=== PATIENT | female | born 2000 | race Caucasian/White ===

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

== ENCOUNTER 2021-10-14 16:52 | Emergency (ER) | payer MEDICAID, SELFPAY ==
[2021-10-14 16:53] VITALS: BP 118/72; PULSE 88; RESP 14; TEMP 36.6; O2SAT 97; BMI 34.1
--- NOTE | 2021-10-14 18:38 | EDS_ITS ---
HPI History of Present Illness Chief Complaint: Nausea/Vomiting Informant: patient Onset/Context/Timing Onset: Today Current Severity: Moderate Maximum Severity: Moderate Narrative Narrative: Patient presents with nausea and vomiting. She is currently 12 weeks . She states she had a lot of nausea and vomiting early in the . It recently improved but since 1 AM today has been vomiting and unable to keep anything down. She denies cramping or spotting. She is currently taking B6. She states her doctor called in a prescription for nausea medicine that would make her sleepy but she is not been able to pick it up yet. PFSH PFSH Medical History no medical history no medical history Home Medications pyridoxine (vitamin B6) [Vitamin B-6] 25 mg PO DAILY 10/14/21 [History Last Taken Unknown] Allergy/AdvReac Type Severity Reaction Status Date / Time morphine Allergy Swelling Verified 10/14/21 16:53 Social History Smoking Status: Current every day smoker tobacco type: cigarettes ROS ROS ED Constitutional Constitutional ED: Denies chills or fever(s) Eyes Eyes: Denies change in vision ENT ENT ED: Denies sore throat Cardiovascular Cardiovascular: Denies chest pain Respiratory/Chest Respiratory/Chest: Denies cough or dyspnea Gastrointestinal Gastrointestinal: Reports nausea and vomiting; Denies abdominal pain or diarrhea Genitourinary Genitourinary ED: Denies dysuria Musculoskeletal Musculoskeletal: Denies back pain Integumentary Denies rash Neurologic Neurologic: Denies headache(s) or weakness Allergic/Immunologic Allergic/Immunologic ED: Denies urticaria EXAM Physical Exam Const Vital Signs: 10/14/21 16:53 10/14/21 21:31 Temperature 97.8 F Temperature Source Temporal Pulse Rate 88 71 Respiratory Rate 14 16 Blood Pressure 118/72 115/78 Blood Pressure Mean 87 90 Pulse Ox 97 98 Oxygen Delivery Method Room Air Room Air Positive well nourished and well developed General Appearance ED: well developed HEENT Reports moist mucous membranes Eyes PERRL and EOMs intact bilaterally Neck supple Chest Wall inspection of chest normal and palpation of chest normal Resp normal respiratory effort and clear to auscultation bilaterally Cardio regular rate and regular rhythm GI non-tender Auscultation: hypoactive bowel sounds Palpation: soft Extremity normal to inspection Neuro oriented x3 Sensorium / Orientation: alert Psych mental status grossly normal Skin no rashes or lesions noted MDM MDM Lab Data Labs: Laboratory Results - last 24 hr 10/14/21 10/14/21 18:30 20:35 Sodium 140 Potassium 3.5 Chloride 109 H Carbon Dioxide 22.0 Anion Gap 9 BUN 8 Creatinine 0.54 L Estim Creat Clear Calc 148.29 Est GFR (MDRD) Af Amer 185 Est GFR (MDRD) Non-Af 153 BUN/Creatinine Ratio 15.0 Glucose 79 Calcium 9.6 Urine Color Yellow Urine Clarity Sl. Cloudy Urine pH 6.5 Ur Specific [place] 1.015 Urine Protein Negative Urine Glucose (UA) Normal Urine Ketones 150 A* Urine Occult Blood Negative Urine Nitrite Negative Urine Bilirubin Negative Urine Urobilinogen Normal Ur Leukocyte Esterase Negative Urine RBC 0 SEEN Urine WBC 0 SEEN Ur Squamous Epith Cells 0-5 SEEN Urine Bacteria 0 SEEN Urine Mucus 0 SEEN Treatment and Re-Evaluation Comments:: Patient given liter IV fluid and IV Zofran. Chemistry studies and urinalysis ordered. Chemistry studies unremarkable. Urinalysis does show 150 ketones. No sign of infection. Repeat evaluation patient feeling much improved. She is able to tolerate p.o. fluids without difficulty. Her doctor already called in antiemetics to the pharmacy for her. She will be discharged home with a work note for tomorrow. Discharge Plan Triage Chief Complaint: Nausea/Vomiting ED Provider: Emily Armstrong Dx/Rx/DC Orders Clinical Impression: Vomiting Instructions: ED Vomiting (Adult) Prescriptions: No Action pyridoxine (vitamin B6) [Vitamin B-6] 25 mg tablet 25 mg PO DAILY RF: 0 Stand Alone Forms: ED Work / School Excuse Primary Care Provider: Abena Peterson Referrals: Abena Peterson DO [Primary Care Provider] - 3-5 Days if not improving Disposition Disposition: Home, Self Care
[2021-10-14] MEDS: Ondansetron 4 MG/2 ML Vial IV (18:44)
[2021-10-14] MEDS: 0.9% Normal Saline 1,000 ML 1000 ML IV (18:45)
[2021-10-14 20:37] LABS: Anion Gap 9 (5-15); BUN 8 mg/dL (7-18); Calcium,Total 9.6 mg/dL (8.5-10.1); Chloride 109 mmol/L (98-107); Creatinine, Serum 0.54 mg/dL (0.55-1.02); EST Glomerular Filtration Rate 153 mL/min (>60); Est Glom Filt Rate - Afr Amer 185 mL/min (>60); Estimated Creatinine Clearance 148.29 ml/min; Glucose 79 mg/dL (74-106); Potassium 3.5 mmol/L (3.5-5.1); Sodium Level 140 mmol/L (136-145)
[2021-10-14 20:45] LABS: Bacteria 0 SEEN /hpf (None Seen); Mucous, Urine 0 SEEN /hpf (<or=2+); Red Blood Cells-Urine 0 SEEN /hpf (0-5); White Blood Cells 0 SEEN /hpf (0-5)
[2021-10-14 20:57] LABS: Color, Urine Yellow (Yellow); Glucose, Dipstick Normal (Normal); Leukocyte Esterase-Dipstick Negative /ul (Negative); Nitrite-Dipstick Negative (Negative); Occult Blood-Urine Negative /ul (Negative); Protein-Dipstick Negative (Negative); Specific Gravity, Urine 1.015 (1.002-1.030); Urine Bilirubin Dipstick Negative (Negative); Urine Clarity Sl. Cloudy (Clear); Urine Urobilinogen Normal (Normal); Urine pH 6.5 (5.0 - 8.0)
[2021-10-14 21:03] LABS: Ketone-Dipstick 150 mg/dl (Negative)
[2021-10-14 21:07] LABS: Squamous Epithelial Cells - UA 0-5 SEEN /hpf (5-10)
[2021-10-14 21:31] VITALS: BP 115/78; PULSE 71; RESP 16; O2SAT 98
== END 2021-10-14 22:00 | disposition home or self-care (01) ==
PROVIDERS: Emergency Provider Emergency Medicine; PCP Obstetrics & Gynecology
DX: O26.891 Other specified pregnancy related conditions, first trimester (principal); R11.2 Nausea with vomiting, unspecified; O99.331 Smoking (tobacco) complicating pregnancy, first trimester; F17.210 Nicotine dependence, cigarettes, uncomplicated; Z3A.12 12 weeks gestation of pregnancy
CPT/HCPCS: 80048; 81001; 96361; 96374; 99282; J7030; A4216; J2405

== ENCOUNTER 2021-12-09 18:00 | Emergency (ER) | payer MEDICAID, SELFPAY ==
[2021-12-09 18:01] VITALS: BP 114/75; PULSE 60; RESP 17; TEMP 36; O2SAT 97; BMI 34.0
--- NOTE | 2021-12-09 18:03 | ED.RN ---
This nurse called OB Charge nurse/OBGYN and both stated that patient can be seen in ER. ER MD notified and ok with seeing the patient in ED.
--- NOTE | 2021-12-09 18:27 | EX.ED.DYSGE1 ---
HPI <MÓNICA Fritz - Last Filed: 12/09/21 18:46> History of Present Illness Chief Complaint: Abd Pain Narrative Narrative: 21-year-old female is approximately 20 weeks . She was going to get the mail and slipped on the ice and fell on her hands and knees. There was no direct impact to her abdomen, when she stood up she developed lower abdominal cramping. No vaginal bleeding or fluids. No nausea or vomiting. She was concerned due to the cramping and presented to the ER. Her thus far has been uncomplicated. PFSH <MÓNICA Fritz - Last Filed: 12/09/21 18:46> PFSH Home Medications pyridoxine (vitamin B6) [Vitamin B-6] 25 mg PO DAILY 10/14/21 [History Last Taken Unknown] Allergy/AdvReac Type Severity Reaction Status Date / Time morphine Allergy Swelling Verified 12/09/21 18:00 Social History Smoking Status: Current every day smoker tobacco type: cigarettes ROS <MÓNICA Fritz - Last Filed: 12/09/21 18:46> ROS ED ROS Narrative Constitutional: Negative for fever, chills, malaise. Eyes: Negative for visual change. ENT: Negative for sore throat, ear pain, rhinorrhea. CVS: Negative for palpitations, chest pain, syncope. Respiratory: Negative for shortness of breath, cough, orthopnea. GI: Positive for abdominal pain. Negative for nausea, vomiting, diarrhea, constipation, melena, hematochezia. : Negative for dysuria, hematuria or frequency. Neuro: Negative for headache, motor/sensory dysfunction. Skin: Negative for rash, abscess, or wound. Musc: Negative for joint pain, swelling, trauma. Heme: Negative for easy bruising, bleeding, lymphadenopathy. EXAM <MÓNICA Fritz Last Filed: 12/09/21 18:46> Physical Exam Narrative Exam Narrative: CONST: Patient sitting in no acute distress. EYES: Normal inspection. NECK: Normal inspection. RESP: No respiratory distress, CTAB. CVS: Regular rate and rhythm, no murmur, no gallop. ABD: Soft with slight tenderness throughout, no guarding or rebound, nondistended, no hepatosplenomegaly. SKIN: Color normal, no rash, warm, dry, intact. EXTREMITIES: Normal appearance, no pedal edema. NEURO: Oriented x4. PSYCH: Normal affect. Const Vital Signs: 12/09/21 18:01 Temperature 96.8 F L Temperature Source Temporal Pulse Rate 60 Respiratory Rate 17 Blood Pressure 114/75 Blood Pressure Mean 88 Pulse Ox 97 Oxygen Delivery Method Room Air <Dr. Jose M Guillaume MD - Last Filed: 12/09/21 18:52> Physical Exam Const Vital Signs: 12/09/21 18:01 Temperature 96.8 F L Temperature Source Temporal Pulse Rate 60 Respiratory Rate 17 Blood Pressure 114/75 Blood Pressure Mean 88 Pulse Ox 97 Oxygen Delivery Method Room Air MDM <MÓNICA Fritz - Last Filed: 12/09/21 18:46> [facility] Narrative Medical decision making narrative: Patient is approximately 20 weeks . She had a mechanical slip on the ice and landed on her hands and knees. She had no direct trauma to her abdomen. She is having mild abdominal cramping pain. No vaginal bleeding or fluids. Today she appears well and nontoxic. Vital signs are within normal limits. Her abdomen is soft with slight tenderness but no peritoneal signs. With no direct trauma no bleeding I have low concern for acute intra-abdominal process. Her exam is most consistent with an abdominal wall strain. She was instructed to take Tylenol as needed and follow-up with her OB this week as she has an ultrasound scheduled in 2 days. She was discharged in stable condition. Diagnosis 1. Abdominal wall strain <Dr. Jos eM Guillaume MD - Last Filed: 12/09/21 18:52> [facility] Narrative Medical decision making narrative: Patient presents with abdominal pain. She fell onto her hands and knees. There was no direct abdominal trauma. She complains of lower abdominal pain. She denies any vaginal bleeding or vaginal discharge. This is her first . She not know her blood type. Her exam is remarkable tenderness in the lower abdomen. Having her tensing her abdominal muscles causes her discomfort. In light of this feel that her abdominal pain is due to abdominal muscle strain and not obstetric in origin. We will have nurse check for heart tones. She is to follow-up with her OB. She is scheduled for an ultrasound later this week. Discharge Plan Triage Chief Complaint: Abd Pain ED Provider: Lily Dias Dx/Rx/DC Orders Clinical Impression: Abdominal wall strain Instructions: ED Muscle Strain, Abdomen Prescriptions: No Action pyridoxine (vitamin B6) [Vitamin B-6] 25 mg tablet 25 mg PO DAILY RF: 0 Stand Alone Forms: ED Work / School Excuse Primary Care Provider: Abena Peterson Referrals: Aebna Peterson DO [Primary Care Provider] - Activity Restrictions/Additional Instructions: After examination your pain is most consistent with a strain of your abdominal wall muscles. Please take Tylenol 1000 mg as needed every 6 hours. Follow-up with your INFAN[employer]AP[employer] OFFICER as scheduled this week. Disposition Disposition: Home, Self Care
--- NOTE | 2021-12-09 18:47 | ED.RN ---
HEART TONES 148
== END 2021-12-09 18:58 | disposition home or self-care (01) ==
PROVIDERS: Emergency Provider Physician Assistant; PCP Obstetrics & Gynecology; Visit Provider Physician Assistant
DX: O9A.212 Injury, poisoning and certain other consequences of external causes complicating pregnancy, second trimester (principal); S39.011A Strain of muscle, fascia and tendon of abdomen, initial encounter; Z3A.20 20 weeks gestation of pregnancy; W00.0XXA Fall on same level due to ice and snow, initial encounter; Y93.9 Activity, unspecified; Y92.9 Unspecified place or not applicable; O99.332 Smoking (tobacco) complicating pregnancy, second trimester; F17.210 Nicotine dependence, cigarettes, uncomplicated
CPT/HCPCS: 99282

== ENCOUNTER 2022-02-27 09:33 | Emergency (ER) | payer MEDICAID, SELFPAY ==
[2022-02-27 09:34] VITALS: BP 117/70; PULSE 80; RESP 14; TEMP 36.3; O2SAT 100; BMI 35.9
--- NOTE | 2022-02-27 09:47 | EX.ED.DYSGE1 ---
HPI <BELINDA Rodríguez - Last Filed: 02/27/22 10:59> History of Present Illness Chief Complaint: GI Bleed Narrative Narrative: 21-year-old female who is 32 weeks presents the emergency department with nausea, vomiting as well as some blood in her vomit this morning. Patient has had similar morning sickness in her first trimester, states that she is having and again in her third trimester as well as acid reflux. Patient has had vomiting every morning for the last 3 mornings, today there was some red and it was enough to get her to the emergency department. She called her MEDICAL BILLING AND CODING INSTRUCTOR who told her to come the ER for evaluation. Patient denies any actual pain, patient does feel the baby move, denies any fevers or chills. Denies any blood clots or rylee red blood. PFSH <BELINDA Rodríguez - Last Filed: 02/27/22 10:59> PFSH Home Medications pyridoxine (vitamin B6) [Vitamin B-6] 25 mg PO DAILY 10/14/21 [History Last Taken Unknown] omeprazole 40 mg PO DAILY #30 cap 02/27/22 [Rx Last Taken Unknown] ondansetron 4 mg PO Q8H PRN #10 tab 02/27/22 [Rx Last Taken Unknown] Allergy/AdvReac Type Severity Reaction Status Date / Time morphine Allergy Swelling Verified 02/27/22 09:36 Social History Smoking Status: Current every day smoker tobacco type: cigarettes ROS <BELINDA Rodríguez - Last Filed: 02/27/22 10:59> ROS ED ROS Narrative Constitutional: Negative for fever, chills, weight loss, weakness Eyes: Negative for vision loss, vision change, double vision ENT: Negative for any sore throat, ear pain, congestion Cardiovascular: Negative for any chest pain, tightness, palpitations, racing heartbeat Respiratory: Negative for any cough, sputum production, hemoptysis, shortness of breath, shortness of breath on exertion, orthopnea Gastrointestinal: Negative for any abdominal pain, diarrhea, constipation, blood in stool. Positive for nausea, vomiting, blood in vomit : Negative for any urinary frequency, incontinence, dysuria, retention, blood in urine Muscle skeletal: Negative for any muscle joint pain, stiffness, myalgias, arthralgias, neck pain, back pain Neurological: Negative for any headache, dizziness, syncope, numbness or tingling Skin: Negative for any rashes, lumps, itching, abrasions, lacerations Psychiatric: Negative for any depression, anxiety, stress, suicidal ideation, homicidal ideation Hematologic: Negative for any easy bruising, excessive bruising, easy bleeding Allergies: Negative for any eczema, hives, rash EXAM <BELINDA Rodríguez - Last Filed: 02/27/22 10:59> Physical Exam Narrative Exam Narrative: Vital signs reviewed. HEET: Head normocephalic atraumatic, TMs clear bilaterally. Posterior pharynx is clear, moist mucous membranes. Nares clear bilaterally. Neck: Supple with no lymphadenopathy or tenderness. No signs of meningismus, negative jolt sign. Cardiac: Regular rate and rhythm no murmurs gallops or rubs, equal peripheral pulses bilaterally. Respiratory: Lungs clear to auscultation bilaterally. No chest tenderness. Abdomen: Soft, nontender, nondistended. No abdominal bruit or pulsatile masses. No hepatosplenomegaly. Patient is 32 weeks , heart tones were established, they were within normal limits. Patient denies any pelvic pain, abdominal pain. Extremities: No peripheral edema, no signs of gross trauma or deformity. Active full range of motion of all extremities. Neuro: Cranial nerves II through XII intact, no focal neurological deficits. Skin: Clean dry and intact with no rash, purpura, petechiae, vesicles or pustules. Backslash flank: No CVA tenderness, no midline spinal tenderness, no deformity. Psych: Normal mood and affect. No SI, HI or acute psychosis. Const Vital Signs: 02/27/22 09:34 Temperature 97.3 F L Temperature Source Temporal Pulse Rate 80 Respiratory Rate 14 Blood Pressure 117/70 Blood Pressure Mean 85 Pulse Ox 100 Oxygen Delivery Method Room Air <Dr. Rolf Harrison MD - Last Filed: 02/27/22 12:06> Physical Exam Const Vital Signs: 02/27/22 09:34 Temperature 97.3 F L Temperature Source Temporal Pulse Rate 80 Respiratory Rate 14 Blood Pressure 117/70 Blood Pressure Mean 85 Pulse Ox 100 Oxygen Delivery Method Room Air MDM <BELINDA Rodríguez - Last Filed: 02/27/22 10:59> [facility] Narrative Medical decision making narrative: Patient appears well, patient appears nontoxic, vital signs are stable. Patient presents the emergency department with 3 days of vomiting, some blood in her vomit today. Patient's physical examination was unremarkable, I believe the patient's retching, consistent vomiting over the last couple days as well as acid reflux caused possible Adina-Johnson tear. The patient had no vomitus here, patient felt much better after IV fluids, IV Zofran. Patient will be given Mylanta, patient be discharged with Zofran, a PPI. She will follow-up closely with her MEDICAL BILLING AND CODING INSTRUCTOR. At this time, patient given return precautions however patient is stable for discharge. heart tones were completed, they were 168 which is within normal limits. Lab Data Labs: Laboratory Results - last 24 hr 02/27/22 02/27/22 09:58 09:58 WBC 10.8 RBC 4.08 L Hgb 11.3 L Hct 34.3 L MCV 84.1 MCH 27.7 MCHC 32.9 RDW Std Deviation 38.2 RDW Coeff of Pratima 12.7 Plt Count 180 MPV 10.7 Immature Gran % (Auto) 0.600 Neut % (Auto) 76.0 H Lymph % (Auto) 15.5 L [place] % (Auto) 6.1 Eos % (Auto) 1.4 Baso % (Auto) 0.4 Absolute Neuts (auto) 8.2 H Absolute Lymphs (auto) 1.67 Nucleated RBC % 0 Sodium 138 Potassium 3.9 Chloride 109 H Carbon Dioxide 24.0 Anion Gap 5 BUN 6 L Creatinine 0.52 L Estim Creat Clear Calc 153.99 Est GFR (MDRD) Af Amer 190 Est GFR (MDRD) Non-Af 157 BUN/Creatinine Ratio 11.6 Glucose 92 Calcium 8.6 <Dr. Rolf Harrison MD - Last Filed: 02/27/22 12:06> [facility] Narrative Medical decision making narrative: Seen and evaluated independently and in conjunction with physician assistant professor of life sciences. Agree with notes above unless documented otherwise. Patient has been vomiting quite hard when she does so, off and on throughout her . She now saw a small mount of blood. She has some burning discomfort in her chest that is better after Mylanta we gave her. Hemodynamically stable and clinically stable, not continuing to vomit blood and has had no melena or bright red blood per rectum. Exam: Benign abdomen nontender nondistended, no tachycardia. Reviewed her labs her blood counts are okay for a female, vital signs are normal, do not suspect clinically significant GI bleeding here, more than likely a Adina-Johnson tear which we discussed, place her on a PPI, prn nausea medication, and close a patient follow-up. We discussed reasons to return. Lab Data Attestation: I reviewed the patient's lab results. Labs: Laboratory Results - last 24 hr 02/27/22 02/27/22 09:58 09:58 WBC 10.8 RBC 4.08 L Hgb 11.3 L Hct 34.3 L MCV 84.1 MCH 27.7 MCHC 32.9 RDW Std Deviation 38.2 RDW Coeff of Pratima 12.7 Plt Count 180 MPV 10.7 Immature Gran % (Auto) 0.600 Neut % (Auto) 76.0 H Lymph % (Auto) 15.5 L Dickinson % (Auto) 6.1 Eos % (Auto) 1.4 Baso % (Auto) 0.4 Absolute Neuts (auto) 8.2 H Absolute Lymphs (auto) 1.67 Nucleated RBC % 0 Sodium 138 Potassium 3.9 Chloride 109 H Carbon Dioxide 24.0 Anion Gap 5 BUN 6 L Creatinine 0.52 L Estim Creat Clear Calc 153.99 Est GFR (MDRD) Af Amer 190 Est GFR (MDRD) Non-Af 157 BUN/Creatinine Ratio 11.6 Glucose 92 Calcium 8.6 Discharge Plan Triage Chief Complaint: GI Bleed ED Midlevel Provider: David Burns ED Provider: Rolf Harrison Dx/Rx/DC Orders Clinical Impression: Nausea and vomiting during , Adina-Johnson tear Instructions: Adina-Johnson Tear, ED Vomiting (Adult) Prescriptions: New ondansetron 4 mg tablet,disintegrating 4 mg PO Q8H PRN (Reason: nausea and vomiting) Qty: 10 RF: 0 omeprazole 40 mg capsule,delayed release(DR/EC) 40 mg PO DAILY Qty: 30 RF: 0 No Action pyridoxine (vitamin B6) [Vitamin B-6] 25 mg tablet 25 mg PO DAILY RF: 0 Stand Alone Forms: ED Work / School Excuse Primary Care Provider: Abena Peterson Referrals: Abena Peterson, [Primary Care Provider] - Activity Restrictions/Additional Instructions: Please follow-up with your PCP and your MEDICAL BILLING AND CODING INSTRUCTOR. Use Zofran for nausea, use your omeprazole daily this will help the acid reflux Print Language: Persian Disposition Disposition: Home, Self Care Discharge Date/Time: 02/27/22 11:26
[2022-02-27] MEDS: 0.9% Normal Saline 1,000 ML 1000 ML IV (10:04)
[2022-02-27] MEDS: Ondansetron 4 MG/2 ML Vial IV (10:05)
[2022-02-27 10:10] LABS: Absolute Lymphocyte Count 1.67 X10^3/uL (0.83-4.51); Absolute Neutrophil Count 8.2 X10^3/uL (2.0-7.7); Basophil# 0.04 X10^3/uL; Basophil% 0.4 % (0-1); Eosinophil# 0.15 X10^3/uL; Eosinophils% 1.4 % (0-5); Hematocrit 34.3 % (37-47); Hemoglobin 11.3 g/dL (12.0-15.0); Lymphocyte # 1.67 X10^3/ul (0.83-4.51); Lymphocyte % 15.5 % (19-41); Mean Corp Hgb Conc 32.9 g/dL (32-36); Mean Corpuscular Hgb 27.7 pg (27.0-32.0); Mean Corpuscular Volume 84.1 fL (81-99); Mean Platelet Vol. 10.7 fl (6.2-12.0); Monocyte# 0.66 X10^3/uL; Monocyte% 6.1 % (0-10); NRBC Flagged by Analyzer 0 % (0-5); Platelet Count 180 K/mm3 (150-450); RBC Distribution Width CV 12.7 % (11.6-14.6); RBC Distribution Width SD 38.2 fl (35.1-43.9); Red Blood Count 4.08 M/mm3 (4.2-5.4); White Blood Count 10.8 K/mm3 (4.4-11.0)
[2022-02-27 10:23] LABS: Anion Gap 5 (5-15); BUN 6 mg/dL (7-18); BUN/Creat Ratio 11.6 RATIO (10-20); Calcium,Total 8.6 mg/dL (8.5-10.1); Chloride 109 mmol/L (98-107); Creatinine, Serum 0.52 mg/dL (0.55-1.02); EST Glomerular Filtration Rate 157 mL/min (>60); Est Glom Filt Rate - Afr Amer 190 mL/min (>60); Estimated Creatinine Clearance 153.99 ml/min; Glucose 92 mg/dL (74-106); Potassium 3.9 mmol/L (3.5-5.1); Sodium Level 138 mmol/L (136-145)
[2022-02-27] MEDS: Mag Hydrox/Al Hydrox/Simeth 30 ML UDC PO (11:15)
== END 2022-02-27 11:26 | disposition home or self-care (01) ==
PROVIDERS: Nurse Practitioner; Emergency Provider Emergency Medicine; PCP Obstetrics & Gynecology; Visit Provider Emergency Medicine
DX: O99.613 Diseases of the digestive system complicating pregnancy, third trimester (principal); K22.6 Gastro-esophageal laceration-hemorrhage syndrome; Z3A.32 32 weeks gestation of pregnancy; O99.333 Smoking (tobacco) complicating pregnancy, third trimester; F17.210 Nicotine dependence, cigarettes, uncomplicated; K21.9 Gastro-esophageal reflux disease without esophagitis
CPT/HCPCS: 80048; 85025; 96361; 96374; 99284; J7030; J2405

== ENCOUNTER 2022-04-24 05:00 | Inpatient (IN) | payer MEDICAID, SELFPAY ==
[2022-04-24] VITALS (17 sets, daily range): BP systolic 101–134; BP diastolic 55–79; PULSE 65–92; RESP 12–22; TEMP 36.2–36.8; O2SAT 96–99; BMI 38.9
[2022-04-24] MEDS: Lactated Ringers 1,000 ML 999 ML IV (05:32)
[2022-04-24 05:45] LABS: Absolute Lymphocyte Count 2.04 X10^3/uL (0.83-4.51); Absolute Neutrophil Count 9.9 X10^3/uL (2.0-7.7); Basophil# 0.03 X10^3/uL; Basophil% 0.2 % (0-1); Eosinophil# 0.07 X10^3/uL; Eosinophils% 0.5 % (0-5); Hematocrit 33.8 % (37-47); Hemoglobin 10.8 g/dL (12.0-15.0); Lymphocyte # 2.04 X10^3/ul (0.83-4.51); Lymphocyte % 15.9 % (19-41); Mean Corpuscular Hgb 25.5 pg (27.0-32.0); Mean Corpuscular Volume 79.9 fL (81-99); Mean Platelet Vol. 12.1 fl (6.2-12.0); Monocyte# 0.78 X10^3/uL; Monocyte% 6.1 % (0-10); NRBC Flagged by Analyzer 0 % (0-5); Neutrophil # 9.87 X10^3/uL (2.7-7.7); Neutrophil % 76.7 % (47-70); Platelet Count 196 K/mm3 (150-450); RBC Distribution Width CV 13.5 % (11.6-14.6); RBC Distribution Width SD 38.4 fl (35.1-43.9); Red Blood Count 4.23 M/mm3 (4.2-5.4); White Blood Count 12.9 K/mm3 (4.4-11.0)
[2022-04-24] MEDS: Lactated Ringers 1,000 ML 150 ML IV (06:38)
[2022-04-24] MEDS: Acetaminophen 500 MG Tablet 1000 MG PO ×4 (06:39→23:52)
[2022-04-24 07:00] LABS: Amphetamine Urine VISTA NEGATIVE (<1000 ng/mL); Barbiturate Urine VISTA NEGATIVE (< 200 ng/mL); Benzodiazepine Urine VISTA NEGATIVE (< 200 ng/mL); Cocaine Urine VISTA NEGATIVE (< 300 ng/mL); Ecstacy Urine VISTA NEGATIVE (< 500 ng/mL); Methadone Urine VISTA NEGATIVE (< 300 ng/mL); PCP Urine VISTA NEGATIVE (< 25 ng/mL); THC Urine VISTA POSITIVE (< 50 ng/mL); Vista UDS pH Range 5
[2022-04-24] MEDS: Sodium Citrate/Citric Acid 30 ML UDC PO (07:22)
--- NOTE | 2022-04-24 07:31 | HP.PCM_ITS ---
HPI - General General Date of Admission: 04/24/22 Date of Service: 04/24/22 Chief Complaint: section HPI Narrative LUIS EDUARDO COATS, is a 21 F who presents for scheduled section. DATE OF SERVICE: April 17, 2022 ? PROBLEM: breech presentation, 39 week gestation, single IUP, club foot of fetus, obesity ? DIAGNOSIS: As above ? PAST SURGICAL HISTORY: PAST SURGICAL HISTORYExpand by Default PAST SURGICAL HISTORY Procedure Laterality Date ? PAST SURGICAL HISTORY OF ? 2003 ? Left eye surgery following dog bite-Dr. Stevie Henson [facility] ? TONSILLECTOMY & ADENOIDECTOMY <AGE 12 ? 2003 ? Dr. Castro ? ? PAST MEDICAL HISTORY: PAST MEDICAL HISTORYExpand by Default PAST MEDICAL HISTORY Diagnosis Date ? Depression ? ? NEGATIVE HISTORY OF 08/06/2011 ? Color Blindness ? Obese 03/09/2015 ? ? SUBJECTIVE: Pt doing well. No regular ctx, vb, lof. Good FM. ? SOCIAL HISTORY: SOCIAL HISTORYExpand by Default Social History ? Tobacco Use ? Smoking status: Former Smoker ? ? Years: 5.00 ? ? Types: Cigarettes ? ? Quit date: 01/07/2021 ? ? Years since quittin.2 ? Smokeless tobacco: Never Used Vaping Use ? Vaping Use: Former ? Quit date: 08/27/2021 ? Substances: Nicotine, THC, CBD Substance Use Topics ? Alcohol use: Never ? Drug use: Never ? ? Current Outpatient Medications on File Prior to Visit Medication Sig ? omeprazole (PRILOSEC) 40 mg capsule Take 1 capsule by mouth once daily. ? multivitamin (CLASSIC ) 28 mg iron- 800 mcg tab(s) Take 1 tablet by mouth once daily. ? No current facility-administered medications on file prior to visit. ? ALLERGIESExpand by Default ALLERGIES Allergen Reactions ? Morphine Swelling ? ? OBJECTIVE: ? VITALS: BP 100/66 Wt 235 lb 6.4 oz (106.8 kg) LMP 07/22/2021 (Exact Date) BMI 37.43 kg/m? ? HEENT: Normocephalic, atraumatic, Mucus membranes moist without lesions. ? NECK: Soft and Supple. No adenopathy , thyromegaly or bruits. ? SKIN: No lesions. ? CHEST: Clear to auscultation. No wheezes or rales. Good air exchange. ? HEART: Regular rate and rhythm No S3 or S4. No gallops or rubs. ? BACK: Nontender with no CVA tenderness. ? ABDOMEN: Soft, non-tender, non-distended, no masses, no hepatosplenomegaly. ? LOWER EXTREMITIES: There was no pitting edema, no palpable cords and no skin changes. ? ? ? ASSESSMENT: breech presentation, 39 week gestation, single IUP, club foot of fetus, obesity ? PLAN: 1) Discussed r/b/a to section. The rationale for the proposed surgery was discussed in addition to risks, benefits, and alternatives. General pre- and post-operative care was reviewed. Questions were answered. After discussion, the patient indicated a desire to proceed with the planned surgery. [facility] Medical History (Updated 04/24/22 @ 07:[address] Abena Peterson DO) Depression Migraine Home Medications omeprazole 40 mg capsule,delayed release 40 mg PO DAILY heartburn 04/24/22 [History Last Taken 04/22/22 21:00] Allergy/AdvReac Type Severity Reaction Status Date / Time morphine Allergy Swelling Verified 04/24/22 05:29 Surgical History History of surgery History of tonsillectomy and adenoidectomy Social History Smoking Status: Former smoker Vital Signs Vital Signs Vital Signs: 04/24/22 05:23 04/24/22 05:23 04/24/22 05:35 Temperature 97.9 F Temperature Source Temporal Pulse Rate 88 90 Respiratory Rate 16 Blood Pressure 122/79 H Blood Pressure Mean 93 Blood Pressure Source Monitor Blood Pressure Position Semi-Fowlers Blood Pressure Location Right Arm Pulse Ox 99 99 Oxygen Delivery Method Room Air Weight Weight: 233 lb 12.8 oz Body Mass Index (BMI) 38.9 Results Lab / Micro Data Result Diagrams: 04/24/22 05:30 Labs: Laboratory Results - last 24 hr 04/24/22 05:30: WBC 12.9 H, RBC 4.23, Hgb 10.8 L, Hct 33.8 L, MCV 79.9 L, MCH 25.5 L, MCHC 32.0, RDW Std Deviation 38.4, RDW Coeff of Pratima 13.5, Plt Count 196, MPV 12.1 H, Immature Gran % (Auto) 0.600, Neut % (Auto) 76.7 H, Lymph % (Auto) 15.9 L, [place] % (Auto) 6.1, Eos % (Auto) 0.5, Baso % (Auto) 0.2, Absolute Neuts (auto) 9.9 H, Absolute Lymphs (auto) 2.04, Nucleated RBC % 0 04/24/22 05:30: Blood Type A POSITIVE, Antibody Screen NEGATIVE 04/24/22 06:10: Urine Opiates Screen NEGATIVE, Urine Methadone Screen NEGATIVE, Ur Barbiturates Screen NEGATIVE, Ur Phencyclidine Scrn NEGATIVE, Ur Amphetamines Screen NEGATIVE, MDMA (Ecstasy) Screen NEGATIVE, U Benzodiazepines Scrn NEGATIVE, Urine Cocaine Screen NEGATIVE, U Cannabinoids Screen POSITIVE H, Ur Drug Screen Comment Micro: Microbiology 04/24/22 05:30 Nasal Secretion SARS-CoV-2 Antigen (Rapid) - Final Assessment & Plan Assessment/Plan (1) 39 weeks gestation of : (2) Breech presentation:
[2022-04-24] MEDS: Cefazolin 2 GM in 0.9% Normal Saline 100 ML IV (07:34)
--- NOTE | 2022-04-24 08:38 | OP.PCM_ITS ---
Report of Operation Date of Procedure: 04/24/22 Pre-Operative Diagnosis: 39 week gestation, single IUP, breech presentation, ob esity in Post-Operative Diagnosis: As above Surgery/Procedure Performed:: PLTCS via pfannenstiel incision Description of Surgical Findings:: VMI incomplete breech presentation. Clear fluid. Normal appearing placenta with 3 VC. Normal appearing uterus and bilateral adnexa. Surgeon: Abena Peterson fraternity house cook: Maru Miles Type of Anesthesia: Epidural Special Medications: None Specimen's removed: Placenta Drains: Dobbs Estimated Blood Loss (mL): 800 Fluids Replaced: 1500 Description of Procedure: Patient was taken to the operating room where spinal anesthesia was found to be adequate. She was prepped and draped in the dorsal position with a leftward tilt. A Pfannenstiel skin incision was made with a scalpel and this was carried down to the underlying layer of fascia. The fascia was incised the midline. The fascia was extended laterally using a combination of blunt and sharp dissection. The fascia was dissected off of the rectus muscles with blunt and sharp dissection. The rectus muscles were in the midline. The peritoneum was entered with good visualization of the bladder. The peritoneal incision was extended bluntly. The bladder blade was inserted. A low transverse incision was made on the uterus with the scalpel. The incision on the uterus was extended laterally using scissors. Membranes were ruptured for clear fluid. The buttocks of the infant was brought to the hysterotomy. The buttocks was delivered followed by the body and the legs, followed by the arms and the head without any force or delay. The head was in the flexed position during delivery. A vigorous viable male infant was delivered easily without delay through the uterine incision. The cord was clamped and cut after a delay, and the was handed off to the awaiting nursery staff. The placenta was removed with manual extraction. The uterus was exteriorized. The uterus was cleared of all clot and debris. The uterine incision was closed with 1-0 Vicryl in a running locked fashion. A second imbricating layer was performed using 1-0 Vicryl. Uterus was placed back into the abdomen. The hysterotomy was noted to be hemostatic. The peritoneum was closed with 3-0 Vicryl in a running fashion. The fascia was closed with strata fix in a running fashion. The subcutaneous space was irrigated and made hemostatic with Bovie cautery. The subcutaneous space was reapproximated with 3-0 Vicryl. The skin was closed in a subcuticular fashion using 4-0 Monocryl. A silver dressing was placed over the incision. Instrument, sponge, needle counts were correct. The patient was taken to the recovery room in stable condition. Polls Or Surveys Interviewer Dr. Maru Miles was present for: Delivery of the infant and closure of fascia. Grafts/Implants Used: None Procedure Start Time: 07:52 Procedure Stop Time: 08:30 Complications None Admit VTE Documentation VTE Present on Admission: No VTE Mechan Device Prophylaxis: SCD's
[2022-04-24] MEDS: Oxytocin 30 units/NS 500 ml 30 UNITS/500 ML IV.SOLN 167 UNITS IV (08:47)
[2022-04-24] MEDS: Ketorolac 30 MG/ML Syringe IV ×3 (09:42→20:56)
[2022-04-24] MEDS: Senna/Docusate Sodium 1 Tablet PO (10:24)
--- NOTE | 2022-04-24 11:38 | NURSING ---
report given to Mercy Pardo RN who is assuming care of pt at this time
[2022-04-24] MEDS: Lactated Ringers 1,000 ML 100 ML IV (11:48)
[2022-04-24] MEDS: HYDROmorphone 1 MG/ML Syringe IV (13:03)
[2022-04-24] MEDS: oxyCODONE 5 MG Tablet PO (19:57)
[2022-04-25] MEDS: Ketorolac 30 MG/ML Syringe IV (03:09)
[2022-04-25 03:10] VITALS: BP 124/71; PULSE 86; RESP 16; TEMP 36.3; O2SAT 97
[2022-04-25 05:47] LABS: Hematocrit 28.5 % (37-47); Hemoglobin 9.1 g/dL (12.0-15.0); Mean Corp Hgb Conc 31.9 g/dL (32-36); Mean Corpuscular Hgb 25.5 pg (27.0-32.0); Mean Corpuscular Volume 79.8 fL (81-99); Mean Platelet Vol. 12.2 fl (6.2-12.0); Platelet Count 159 K/mm3 (150-450); RBC Distribution Width CV 13.7 % (11.6-14.6); RBC Distribution Width SD 39.6 fl (35.1-43.9); Red Blood Count 3.57 M/mm3 (4.2-5.4); White Blood Count 13.1 K/mm3 (4.4-11.0)
[2022-04-25] MEDS: Acetaminophen 500 MG Tablet 1000 MG PO ×3 (06:00→18:39)
[2022-04-25] MEDS: oxyCODONE 5 MG Tablet PO (06:00)
--- NOTE | 2022-04-25 08:34 | PCM.PROGNOTE ---
Subjective Subjective patient seen at bedside, doing well. Patient reports good pain control. lochia mild. Objective Data Objective Data Vital Signs: Vital Signs Temp Pulse Resp BP Pulse Ox O2 Del Method 97.3 F L 86 16 124/71 H 97 Room Air 04/25/22 03:10 04/25/22 03:10 04/25/22 03:10 04/25/22 03:10 04/25/22 03:10 04/25/22 03:10 Oxygen Delivery Method Room Air Weight: 106.05 kg Body Mass Index (BMI) 38.9 Intake & Output: Intake and Output for Last 24 Hours 04/23/22 04/24/22 04/25/22 23:59 23:59 23:59 Intake Total 3940.83 / 3940.83 Output Total 2780 / 3580 800 / 800 Balance 1160.83 / 360.83 -800 / -800 Lab / Micro Data Result Diagrams: 04/25/22 05:34 Labs: Laboratory Results - last 24 hr 04/25/22 05:34: WBC 13.1 H, RBC 3.57 L, Hgb 9.1 L, Hct 28.5 L, MCV 79.8 L, MCH 25.5 L, MCHC 31.9 L, RDW Std Deviation 39.6, RDW Coeff of Pratima 13.7, Plt Count 159, MPV 12.2 H Micro: Microbiology 04/24/22 05:30 Nasal Secretion SARS-CoV-2 Antigen (Rapid) - Final Physical Exam Narrative fundus firm. dressing dry and intact Const alert and oriented x3 General Appearance: cooperative HEENT normocephalic Neck General: normal visual inspection GI soft to palpation and non-distended GI Narrative: Fundus firm Extremity normal to inspection and no calf tenderness Skin no rashes or lesions noted Neuro oriented x3 and CN's II-XII intact bilaterally Psych mental status grossly normal Assessment & Plan Assessment/Plan (1) Delivery by section: PLAN: POD# 1 , Doing well Routine care pain mgmt monitor VS ambulation
[2022-04-25 08:54] VITALS: BP 132/76; PULSE 87; RESP 16; TEMP 36.6
[2022-04-25] MEDS: Senna/Docusate Sodium 1 Tablet PO (09:27)
[2022-04-25] MEDS: Ibuprofen 600 MG Tablet PO ×3 (09:27→21:22)
[2022-04-25 13:45] VITALS: BP 128/72; PULSE 89; RESP 16; TEMP 36.6
[2022-04-25 19:45] VITALS: BP 117/47; PULSE 86; RESP 16; TEMP 36.6; O2SAT 100
--- NOTE | 2022-04-25 21:42 | NURSING ---
pt expressed concern related to . pt states she feels overwhelmed and stressed and feels as infant is stressed about as well. pt states she is wanting to formula feed until her milk comes in. RN explained importance of pumping to stimulate milk production. pts pump set up and reviewed with pt; pt verbalized understanding. pt stated she wants to eat prior to pumping. pt encouraged to call RN for assistance with first pumping session. pt agreeable
[2022-04-26] MEDS: Acetaminophen 500 MG Tablet 1000 MG PO ×3 (00:49→11:55)
[2022-04-26 00:51] VITALS: BP 129/61; PULSE 89; RESP 16; TEMP 36.4; O2SAT 99
[2022-04-26] MEDS: oxyCODONE 5 MG Tablet PO (01:51)
[2022-04-26] MEDS: Ibuprofen 600 MG Tablet PO ×2 (03:14→09:49)
--- NOTE | 2022-04-26 06:27 | NURSING ---
maternal and support person infant ID bands fell off pt and fob. replaced, verified with Blanche ALMANZA
--- NOTE | 2022-04-26 07:16 | PCM.PROGNOTE ---
Subjective Subjective patient seen at bedside, doing well. Patient reports good pain control. lochia mild. dressing dry and intact. passing flatus +BM, voiding w/o difficulty. ambulating w/o difficulty. Objective Data Objective Data Vital Signs: Vital Signs Temp Pulse Resp BP Pulse Ox O2 Del Method 97.5 F L 89 16 129/61 H 99 Room Air 04/26/22 00:51 04/26/22 00:51 04/26/22 00:51 04/26/22 00:51 04/26/22 00:51 04/26/22 00:51 Oxygen Delivery Method Room Air Weight: 106.05 kg Body Mass Index (BMI) 38.9 Intake & Output: Intake and Output for Last 24 Hours 04/24/22 04/25/22 04/26/22 23:59 23:59 23:59 Intake Total 3940.83 / 3940.83 Output Total 2780 / 3580 800 / 800 Balance 1160.83 / 360.83 -800 / -800 Lab / Micro Data Result Diagrams: 04/25/22 05:34 Micro: Microbiology 04/24/22 05:30 Nasal Secretion SARS-CoV-2 Antigen (Rapid) - Final Physical Exam Const alert and oriented x3 General Appearance: cooperative HEENT normocephalic Neck General: normal visual inspection GI soft to palpation and non-distended GI Narrative: Fundus firm Extremity normal to inspection and no calf tenderness Skin no rashes or lesions noted Neuro oriented x3 and CN's II-XII intact bilaterally Psych mental status grossly normal Assessment & Plan Assessment/Plan (1) Delivery by section: PLAN: Plan POD# 2 , Doing well Routine care pain mgmt monitor VS ambulation dc home
--- NOTE | 2022-04-26 07:18 | DCINST_ITS ---
Discharge Instructions Procedure Diet Discharge Diet: No restrictions Activity May resume sexual activity in: 6-8 weeks Lifting Restrictions: 25 Dressing / Incision Call your doctor if your incision/area has: Continuous Slow Oozing, Sudden Increased Bleeding, Increased Pain/ Swelling, Increased Redness, Foul Smelling Discharge and Swelling at the incision site Call your doctor if you observe: Fever of 101 or Higher, Inability to urinate, Using more than 1 pad per hour and Uncontrolled pain Additional Dressing/Incision Instructions:: remove dressing at 7 days post op- if it becomes saturated prior to that time you may remove it. Let soap and water run over incision sites and dab dry. keep incision clean and dry. Follow Up Care Please Follow Up With: Mariela Del Valle MD When: 1-2 weeks post of incision check and again at 6 weeks post . [phone] Test Results: Test results from this visit will be discussed in further detail at your follow- up appointment, if applicable. Discharge Plan Admission Admit Date/Time: 04/24/22 05:00 Attending Provider: Abena Peterson Discharge Orders/Prescriptions Prescriptions: New acetaminophen 500 mg Tablet 1,000 mg PO Q6 Qty: 0 0RF ibuprofen 600 mg Tablet 600 mg PO Q6H Qty: 0 0RF oxycodone 5 mg Tablet 5 - 10 mg PO Q4H PRN PRN (Reason: Pain Score 4-10) 5 Days Qty: 10 0RF sennosides-docusate sodium [Stool Softener-Stimulant Laxat] 8.6-50 mg Tablet 1 - 2 tab PO DAILY Qty: 0 0RF simethicone [Gas Relief (simethicone)] 80 mg Tablet,Chewable 80 mg PO PCHS PRN (Reason: Indigestion/stomach pain) Qty: 0 0RF Continued omeprazole 40 mg capsule,delayed release(DR/EC) 40 mg PO DAILY Disposition Disposition (needs filled in before D/C Order can be placed): Home, Self Care
--- NOTE | 2022-04-26 07:21 | DS.PCM_ITS ---
Discharge Summary Date of Admission: 04/24/22 Date of Discharge: 04/26/22 Summary: Patient was admitted to [facility] for a primary low-transverse section performed by Dr. Abena Peterson due to breech presentation at 39 weeks gestation. Patient had an uncomplicated surgery followed by an uncomplicated postoperative course. She was discharged home on postoperative day 2 in stable condition Meaningful Use Info Meaningful Use Diagnoses (Choose all that apply): None applicable Discharge Plan Admission Admit Date/Time: 04/24/22 05:00 Attending Provider: Abena Peterson Discharge Orders/Prescriptions Prescriptions: New acetaminophen 500 mg Tablet 1,000 mg PO Q6 Qty: 0 0RF ibuprofen 600 mg Tablet 600 mg PO Q6H Qty: 0 0RF oxycodone 5 mg Tablet 5 - 10 mg PO Q4H PRN PRN (Reason: Pain Score 4-10) 5 Days Qty: 10 0RF sennosides-docusate sodium [Stool Softener-Stimulant Laxat] 8.6-50 mg Tablet 1 - 2 tab PO DAILY Qty: 0 0RF simethicone [Gas Relief (simethicone)] 80 mg Tablet,Chewable 80 mg PO PCHS PRN (Reason: Indigestion/stomach pain) Qty: 0 0RF Continued omeprazole 40 mg capsule,delayed release(DR/EC) 40 mg PO DAILY Disposition Disposition (needs filled in before D/C Order can be placed): Home, Self Care
[2022-04-26 07:45] VITALS: BP 123/75; PULSE 85; RESP 16; TEMP 36.7; O2SAT 99
[2022-04-26] MEDS: Senna/Docusate Sodium 1 Tablet PO (09:49)
--- NOTE | 2022-04-26 10:56 | NURSING ---
2 week follow up appointment scheduled with [facility].
--- NOTE | 2022-04-26 11:26 | NURSING ---
Okay for discharge per social work.
[2022-04-26 11:40] VITALS: BP 132/82; PULSE 85; RESP 18; TEMP 36.4; O2SAT 99
--- NOTE | 2022-04-26 18:17 | CASEMGMT ---
Addendum entered by Zoraida Leonard 04/26/22 19:54: TOMMY made on line referral to [facility] and WIC. 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 History of depression. SW spoke to ARCHIE Knox who reports she has no concerns with the patient and that fob and mother are good supports. SW met with patient and introduced role and reason for consult. Patient gave verbal consent for this parts data writer to speak to her in the presence of her mother and the FOB. Mom: Shy Mullen PNC: [facility] Control: BC pill PHQ2 score-0 Baby: Guillermo Wayne : 04/24/2022 Apgars: 8/9 Weight: 6# 13 ounces Wedding Transportation Driver: Dr. Fields [employer] MOB's other children: None Housing: Patient resides in a house with her mom, dad, sister and FOB Transportation: Patient said that she does not drive but Gera and patient's mother will transport her to appointments, and they confirmed this with this parts data writer. Supplies: Patient reports she has clothes, diapers, bassinet, crib, diapers and carseat and all the supplies for the nb Supports: Patient said that her supports are her boyfriend, Gera and her mother Education Level: Patient said that she did not graduate from high school. The last grade she attended was the 12th grade. Patient had an IEP for ADHD.. Employment: Patient is not currently employed. Patient worked till 2 weeks ago at [employer] in [facility]. Patient said that after her post period she plans to work at [employer]. Patient is unsure when she will return to work Agency Involvement: [employer] . Patient was open to [facility] and WIC referral. Patient reports she had counseling as a teenager through the school counselor. Patient reports no legal issues. Patient reports no CPS involvement in the past. FOB: Moisés Wayne Time together: 1 1/2 years Involved with the nb: Yes Employment: [employer] in [place]. FOB plans to take off till next Thursday or I can stay longer if I am needed. FOB reports no other children. FOB MH/AOD/DV history: Denied Patient MH History: Patient said that she was diagnosed with depression but also had been diagnosed with depression in high school. Patient said that she took Zoloft in high school and it was effective. Patient is not currently on medication. Patient denied SI/HI currently. Patient was educated on post depression, shaken baby and safe sleeping. Patient's mother said that the reason patient is bottle feeding is that she knows that patient needs sleep and if patient bottle feeds then all the other family members can assist with feeding so the patient can get rest. Patient's mother said that she has talked to patient about post depression and self care. Patient denied alcohol use. Patient reports smoking marijuana as most recently as 1 month ago. Patient said that she used the marijuana to assist with morning sickness, eating and sleep. Patient denied any other drug use. Patient said that she is unsure if she will plan to resume the marijuana use. SW advised patient that if she uses that the nb needs to be inside with sober and responsible adult and patient verbalized understanding. SW advised that if the nb's tox indicated positive for marijuana then CSB will be called. Patient verbalized understanding. SW provided Post Anxiety and Post Depression resource for patient. Plan: Home at discharge. Referral to WIC and [facility] on line per patient's request. Zoraida MONCADA
== END 2022-04-26 12:00 | disposition home or self-care (01) | DRG 540 ==
PROVIDERS: Admitting Provider Obstetrics & Gynecology; Visit Provider Obstetrics & Gynecology
PROC: 10D00Z1 Extraction of Products of Conception, Low, Open Approach (ICD-10-PCS; CPT 59514; principal; 2022-04-24 07:15)
DX: O32.1XX0 Maternal care for breech presentation, not applicable or unspecified (principal); E66.9 Obesity, unspecified; Z37.0 Single live birth; Z3A.39 39 weeks gestation of pregnancy; O99.213 Obesity complicating pregnancy, third trimester; Z87.891 Personal history of nicotine dependence
CPT/HCPCS: 59050; 80307; 85025; 85027; 86850; 86900; 86901; 87426; 99218; 99406; J7120; G0378; J2405

== ENCOUNTER 2023-04-14 11:36 | Emergency (ER) | payer MEDICAID, SELFPAY ==
[2023-04-14 11:37] VITALS: BP 121/58; PULSE 85; RESP 14; TEMP 36.3; O2SAT 98; BMI 39.7
--- NOTE | 2023-04-14 12:11 | US_ITS ---
STUDY: FIRST TRIMESTER OBSTETRICAL ULTRASOUND REASON FOR EXAM: Female, 22 years old pelvic pain -- 5wks 4 days by dates LMP: 03/03/2023 TECHNIQUE: Transvaginal TECHNICAL QUALITY: Adequate. PRIOR ULTRASOUND: None. FINDINGS: There is visualization of a single gestational sac in a normal intrauterine position. The mean sac diameter (MSD) measures 6.7 mm, indicating an estimated gestational age (EGA) of 5 weeks, 3 days. The gestational sac shape is within normal limits. There is no demonstrated yolk sac. The yolk sac measures . The placenta is non-visualized. There is no demonstrated embryo ( pole). The estimated gestation age (EGA) by LMP is 6 weeks, 0 days. The estimated date of delivery (RAIMUNDO) by LMP is 12/08/2023. The uterus measures 9.8 x 5.5 x 5.0 cm. There is no demonstrated uterine fibroid. The cervix is closed. The right ovary measures 4.0 x 2.8 x 2.1 cm. There is no right ovarian cyst. There is no visualized right adnexal mass or complex lesion. The left ovary measures 3.7 x 2.2 x 1.5 cm.. There is no left ovarian cyst. There is no visualized left adnexal mass or complex lesion. There is minimal fluid in the cul de sac. US/Transvaginal w/Preg US IMPRESSION: Findings consistent with intrauterine gestational sac corresponding to gestational age of 5 weeks 3 days. No pole identified. Recommend follow-up imaging with gynecologic consult to assess for pole development in the setting of early . Electronically Signed: Vinod Atkinson DO at 14:50 EDT ,
--- NOTE | 2023-04-14 12:14 | EDS_ITS ---
HPI HPI - Female History of Present Illness Chief Complaint: Female C/O Informant: patient and parent Narrative Narrative: 5 weeks 4 days by dates home test positive a week ago followed by Dr. Peterson. a year ago. States occasional cramping along her C- section line or 3 days since 10:30 AM's been persistent. No vaginal bleeding, no urine symptoms. No nausea or vomiting. No fevers. Prior similar symptoms: No PFSH PFSH Medical History Depression Migraine Allergy/AdvReac Type Severity Reaction Status Date / Time morphine Allergy Swelling Verified 04/14/23 11:36 Surgical History History of surgery History of tonsillectomy and adenoidectomy Social History Smoking Status: Former smoker ROS ROS ED Constitutional Constitutional ED: Denies chills, fever(s) or sweats Eyes Eyes: Denies change in vision ENT ENT ED: Denies dysphagia or sore throat Cardiovascular Cardiovascular: Denies chest pain, leg edema, palpitations or racing heartbeat Respiratory/Chest Respiratory/Chest: Denies cough, dyspnea or dyspnea on exertion Gastrointestinal Gastrointestinal: Denies abdominal pain, diarrhea, nausea or vomiting Genitourinary Genitourinary ED: Reports other Details: Pain, ; Denies dysuria, hematuria or urinary frequency Musculoskeletal Musculoskeletal: Denies back pain, extremity pain or neck pain Integumentary Denies rash or wounds Neurologic Neurologic: Denies headache(s), paresthesias or weakness EXAM Physical Exam Const Vital Signs: 04/14/23 11:37 Temperature 97.3 F L Temperature Source Temporal Pulse Rate 85 Respiratory Rate 14 Blood Pressure 121/58 H Blood Pressure Mean 79 Pulse Ox 98 Oxygen Delivery Method Room Air Positive well nourished and well developed Constitutional Narrative: Tearful upon coming in the room, however consolable resting comfortably laying in the bed during exam. General Appearance ED: well developed HEENT Reports moist mucous membranes normocephalic and atraumatic Eyes PERRL, EOMs intact bilaterally and conjunctivae normal General Eye ED: Yes normal appearance of both eyes Neck no lymphadenopathy and supple General: Negative for tenderness Chest Wall Chest: Negative for tenderness Resp normal respiratory effort and normal air movement Effort and Inspection: symmetric chest movement; Negative for respiratory distress Cardio regular rate, regular rhythm and no murmurs Peripheral Pulses: pulses 2+ throughout GI normal to inspection, nondistended, normoactive bowel sounds and non-tender Palpation: Negative for guarding or rebound tenderness present Narrative: Tender lower pelvic no guarding or rebound Back/Spine no CVA tenderness and no thoracic nor lumbar tenderness Extremity normal to inspection General Extremety ED: Negative for edema or tenderness General Extremity: Negative for edema Neuro oriented x3 and no sensory deficits noted Sensorium / Orientation: awake and alert Skin no rashes or lesions noted and no wounds MDM MDM MDM Narrative Medical decision making narrative: Interventions / MDM: Differential diagnosis: Pelvic pain in , ectopic Diagnosis considered but do not suspect: No vaginal bleeding for concerns of threatened miscarriage. My EKG interpretation: N/A Imaging independently reviewed and interpreted by myself: Pelvic ultrasound per radiology: 5-week 3-day gestation no no current pole. Intrauterine. External documents reviewed: N/A Test considered but not ordered:N/A ED course: Patient discomfort on evaluation and Tylenol was given. hCG 4299. Urine negative. Ultrasound obtained intrauterine . She is more reassured. Re-evaluation: stable, symptoms much improved no pelvic pain on reexamination. She will call her OB for outpatient follow-up should be vitamins. Return precautions. All questions were answered. Disposition discussed with patient/family/significant other: Patient and mother Case discussed with consulting clinician: N/A This note was generated with [employer] dictation software. It may contain incorrect words, spelling, and punctuation that were not noted in checking the note before signing. Lab Data Labs: Laboratory Results - last 24 hr 04/14/23 04/14/23 12:20 12:20 HCG, Quant 4299 H Urine Color Yellow Urine Clarity Clear Urine pH 6.5 Ur Specific [place] 1.005 Urine Protein Negative Urine Glucose (UA) Normal Urine Ketones Negative Urine Occult Blood Negative Urine Nitrite Negative Urine Bilirubin Negative Urine Urobilinogen Normal Ur Leukocyte Esterase Negative Urine RBC 0 SEEN Urine WBC 0 SEEN Ur Squamous Epith Cells 0 SEEN Urine Bacteria 0 SEEN Urine Mucus 0 SEEN Urine Test Positive H Radiography Diagnostic Testing: Clinical Impression(s) from Imaging Studies Obstetrics Ultrasound 04/14/23 12:11 IMPRESSION: Findings consistent with intrauterine gestational sac corresponding to gestational age of 5 weeks 3 days. No pole identified. Recommend follow-up imaging with gynecologic consult to assess for pole development in the setting of early . Electronically Signed: Vinod Atkinson DO at 14:50 EDT Reading Location ID and State: [facility] / [place] , Service support , Discharge Plan Triage Chief Complaint: Female C/O ED Provider: Francisco Ramirez Dx/Rx/DC Orders Clinical Impression: First trimester , Pelvic pain Instructions: 1st Trimester Primary Care Provider: Care Physician,No Primary Referrals: Abena Peterson DO [Med Staff - Active Staff] - 3-5 Days Care Physician,No Primary [Primary Care Provider] - Activity Restrictions/Additional Instructions: hCG 4299. Ultrasound5-week 3-day intrauterine with current gestational sac. No pole currently seen. Continue prenatals Tylenol as needed follow-up with your OB doctor outpatient reevaluation peer return if worsening symptoms. Disposition Disposition: Home, Self Care Discharge Date/Time: 04/14/23 15:15
[2023-04-14] MEDS: Acetaminophen 500 MG Tablet 1000 MG PO (12:21)
[2023-04-14 12:37] LABS: Bacteria 0 SEEN /hpf (None Seen); Mucous, Urine 0 SEEN /hpf (<or=2+); Red Blood Cells-Urine 0 SEEN /hpf (0-5); Squamous Epithelial Cells - UA 0 SEEN /hpf (5-10); White Blood Cells 0 SEEN /hpf (0-5)
[2023-04-14 12:39] LABS: Color, Urine Yellow (Yellow); Glucose, Dipstick Normal (Normal); Ketone-Dipstick Negative (Negative); Leukocyte Esterase-Dipstick Negative /ul (Negative); Nitrite-Dipstick Negative (Negative); Occult Blood-Urine Negative /ul (Negative); Protein-Dipstick Negative (Negative); Specific Gravity, Urine 1.005 (1.002-1.030); Urine Bilirubin Dipstick Negative (Negative); Urine Clarity Clear (Clear); Urine Urobilinogen Normal (Normal); Urine pH 6.5 (5.0 - 8.0)
[2023-04-14 12:47] LABS: Internal QC Validated? YES +Cl - CLEAR BKGD; Pregnancy, Urine Positive Negative
[2023-04-14 13:11] LABS: hCG Titer Quant., Serum 4299 mIU/mL (1-3)
== END 2023-04-14 15:15 | disposition home or self-care (01) ==
PROVIDERS: Emergency Provider Emergency Medicine; Visit Provider Emergency Medicine
DX: O26.891 Other specified pregnancy related conditions, first trimester (principal); Z3A.01 Less than 8 weeks gestation of pregnancy; R10.2 Pelvic and perineal pain; Z87.891 Personal history of nicotine dependence
CPT/HCPCS: 76817; 81001; 81025; 84702; 93976; 99284; A4216

== ENCOUNTER 2023-04-21 03:54 | Emergency (ER) | payer MEDICAID, SELFPAY ==
[2023-04-21 03:55] VITALS: BP 114/75; PULSE 90; RESP 16; TEMP 36.3; O2SAT 98; BMI 39.1
[2023-04-21] MEDS: 0.9% Normal Saline 1,000 ML 999 ML IV (04:25)
[2023-04-21] MEDS: Acetaminophen 500 MG Tablet 1000 MG PO (04:25)
[2023-04-21] MEDS: Ondansetron 4 MG/2 ML Vial IV (04:25)
[2023-04-21 04:50] LABS: Bacteria 0 SEEN /hpf (None Seen); Mucous, Urine 0 SEEN /hpf (<or=2+); Red Blood Cells-Urine 0 SEEN /hpf (0-5)
[2023-04-21 04:52] LABS: Color, Urine Yellow (Yellow); Glucose, Dipstick Normal (Normal); Leukocyte Esterase-Dipstick 25 /ul (Negative); Nitrite-Dipstick Negative (Negative); Occult Blood-Urine Negative /ul (Negative); Protein-Dipstick 30 mg/dl (Negative); Urine Bilirubin Dipstick Negative (Negative); Urine Clarity Sl. Cloudy (Clear); Urine Urobilinogen Normal (Normal)
[2023-04-21 05:07] LABS: Absolute Lymphocyte Count 1.58 X10^3/uL (0.83-4.51); Absolute Neutrophil Count 7.3 X10^3/uL (2.0-7.7); Basophil# 0.04 X10^3/uL; Basophil% 0.4 % (0-1); Eosinophil# 0.13 X10^3/uL; Eosinophils% 1.3 % (0-5); Hematocrit 36.7 % (37-47); Hemoglobin 11.5 g/dL (12.0-15.0); Lymphocyte # 1.58 X10^3/ul (0.83-4.51); Lymphocyte % 16.3 % (19-41); Mean Corp Hgb Conc 31.3 g/dL (32-36); Mean Corpuscular Hgb 24.7 pg (27.0-32.0); Mean Corpuscular Volume 78.8 fL (81-99); Mean Platelet Vol. 11.4 fl (6.2-12.0); Monocyte% 6.2 % (0-10); NRBC Flagged by Analyzer 0 % (0-5); Neutrophil % 75.3 % (47-70); Platelet Count 222 K/mm3 (150-450); RBC Distribution Width CV 15.3 % (11.6-14.6); RBC Distribution Width SD 43.2 fl (35.1-43.9); Red Blood Count 4.66 M/mm3 (4.2-5.4); White Blood Count 9.7 K/mm3 (4.4-11.0)
[2023-04-21 05:18] LABS: Ketone-Dipstick 150 mg/dl (Negative); Squamous Epithelial Cells - UA 0-5 SEEN /hpf (5-10); White Blood Cells 0-5 SEEN /hpf (0-5)
[2023-04-21 05:25] LABS: Anion Gap 7 (5-15); BUN 6 mg/dL (7-18); BUN/Creat Ratio 8.3 RATIO (10-20); Chloride 108 mmol/L (98-107); Creatinine, Serum 0.72 mg/dL (0.55-1.02); EST Glomerular Filtration Rate 107 mL/min (>60); Est Glom Filt Rate - Afr Amer 129 mL/min (>60); Estimated Creatinine Clearance 110.28 ml/min; Glucose 103 mg/dL (74-106); Potassium 3.3 mmol/L (3.5-5.1); Sodium Level 138 mmol/L (136-145)
[2023-04-21 06:10] VITALS: BP 114/49; PULSE 89; RESP 18; O2SAT 99
--- NOTE | 2023-04-21 06:46 | EX.ED.DYSGE1 ---
HPI History of Present Illness Chief Complaint: Abd Pain Informant: patient Narrative Narrative: Patient is a 22-year-old female who is a approximately 6 weeks . She was seen on April 14 secondary to abdominal pain and had an ultrasound obtained at that time which showed a 5-week 4-day fetus within the uterus but no pole or heartbeat. Patient was discharged home at that time as the remainder of the work-up revealed no obvious infection or inflammatory process. She states that she developed some suprapubic lower abdominal pain that is cramping in nature without bleeding or discharge this morning. She states that she had concerned that this could be related and therefore comes in for evaluation [facility] Medical History Depression Migraine Home Medications ondansetron 4 mg disintegrating tablet 4 mg PO TID PRN nausea and vomiting #21 tabs 04/21/23 [Rx Last Taken Unknown] Allergy/AdvReac Type Severity Reaction Status Date / Time morphine Allergy Swelling Verified 04/21/23 03:54 Surgical History History of surgery History of tonsillectomy and adenoidectomy Social History Smoking Status: Former smoker ROS ROS ED Constitutional Constitutional ED: Denies chills or fever(s) ENT ENT ED: Denies sore throat Cardiovascular Cardiovascular: Denies chest pain Respiratory/Chest Respiratory/Chest: Denies cough or dyspnea Gastrointestinal Gastrointestinal: Reports abdominal pain, nausea and vomiting; Denies diarrhea Genitourinary Genitourinary ED: Denies dysuria or hematuria Musculoskeletal Musculoskeletal: Denies back pain or myalgias Integumentary Denies rash Neurologic Neurologic: Denies headache(s), paresthesias or weakness Hematologic/Lymphatic Hematologic/Lymphatic: Denies easy bleeding or easy bruising EXAM Physical Exam Const Vital Signs: 04/21/23 03:55 04/21/23 06:10 Temperature 97.4 F L Temperature Source Temporal Pulse Rate 90 89 Respiratory Rate 16 18 Blood Pressure 114/75 114/49 L Blood Pressure Mean 88 70 Pulse Ox 98 99 Positive well nourished and well developed General Appearance ED: well developed HEENT Reports moist mucous membranes HEENT Narrative: No signs of infection in the posterior pharynx no airway edema or compromise Eyes PERRL and EOMs intact bilaterally General Eye ED: Negative for scleral icterus Neck supple Neck Narrative: No nuchal rigidity or meningeal signs present Resp normal respiratory effort and clear to auscultation bilaterally Cardio regular rate and regular rhythm Rate: other Other Details: Radial pulses are plus 2 out of 4 bilaterally are equal and symmetric GI non-distended GI Narrative: Abdomen is soft and nondistended with normal active bowel sounds. There is pain on palpation in the suprapubic region without voluntary guarding or rigidity Auscultation: normoactive bowel sounds Palpation: soft Back/Spine no CVA tenderness Extremity normal to inspection Neuro oriented x3, CN's II-XII intact bilaterally and no sensory deficits noted Sensorium / Orientation: alert Motor Exam: strength 5/5 throughout Psych mental status grossly normal Skin no rashes or lesions noted General Skin Exam: Negative for jaundice MDM MDM MDM Narrative Medical decision making narrative: Patient presented to the ER afebrile with stable vitals and a soft nonsurgical abdomen. She denies any vaginal bleeding or discharge and as she has had a recent ultrasound showing a single IUP my concern for an ectopic is low and do not feel there is need for repeat imaging studies. As differential diagnosis also includes a threatened or spontaneous miscarriage or UTI did like to perform basic laboratory studies tracking the quantitative hCG value. The value has approximately doubled every 2 days as it should going against potential miscarriage. Urine shows dehydration without signs of acute infection which correlates with her remainder of the laboratory values. On reevaluation she is resting comfortably and has had improvement of symptoms after treatment with IV fluid Zofran and Tylenol. Therefore at this time as patient is not having vaginal bleeding and laboratory studies indicate patient's is progressing as it should there is no need for further evaluation and she can follow-up with her [facility]BLER on outpatient basis History & Record Review Discussion w/independent historian: Patient Lab Data Attestation: I reviewed the patient's lab results. Labs: Laboratory Results - last 24 hr 04/21/23 04/21/23 04/21/23 04:08 04:25 04:30 WBC 9.7 RBC 4.66 Hgb 11.5 L Hct 36.7 L MCV 78.8 L MCH 24.7 L MCHC 31.3 L RDW Std Deviation 43.2 RDW Coeff of Pratima 15.3 H Plt Count 222 MPV 11.4 Immature Gran % (Auto) 0.500 Neut % (Auto) 75.3 H Lymph % (Auto) 16.3 L [place] % (Auto) 6.2 Eos % (Auto) 1.3 Baso % (Auto) 0.4 Absolute Neuts (auto) 7.3 Absolute Lymphs (auto) 1.58 Nucleated RBC % 0 Sodium 138 Potassium 3.3 L Chloride 108 H Carbon Dioxide 23.0 Anion Gap 7 BUN 6 L Creatinine 0.72 Estim Creat Clear Calc 110.28 Est GFR (MDRD) Af Amer 129 Est GFR (MDRD) Non-Af 107 BUN/Creatinine Ratio 8.3 L Glucose 103 Calcium 9.0 HCG, Quant 74791 H Urine Color Yellow Urine Clarity Sl. Cloudy Urine pH 5.0 Ur Specific [place] 1.020 Urine Protein 30 H Urine Glucose (UA) Normal Urine Ketones 150 A* Urine Occult Blood Negative Urine Nitrite Negative Urine Bilirubin Negative Urine Urobilinogen Normal Ur Leukocyte Esterase 25 H Urine RBC 0 SEEN Urine WBC 0-5 SEEN Ur Squamous Epith Cells 0-5 SEEN Urine Bacteria 0 SEEN Urine Mucus 0 SEEN Blood Type A POSITIVE Discharge Plan Triage Chief Complaint: Abd Pain ED Provider: Matthew Clay Dx/Rx/DC Orders Clinical Impression: Abdominal pain during in first trimester Instructions: ED Abdominal Pain, Early Prescriptions: New ondansetron 4 mg tablet,disintegrating 4 mg PO TID PRN (Reason: nausea and vomiting) Qty: 21 0RF Primary Care Provider: Care Physician,No Primary Referrals: Care Physician,No Primary [Primary Care Provider] - Activity Restrictions/Additional Instructions: Please follow-up with your [facility] AS[facility]ER for repeat evaluation and if you develop new or worsening pain or vaginal bleeding or have further concerns please return to the ER for repeat evaluation Disposition Disposition: Home, Self Care Discharge Date/Time: 04/21/23 06:54
== END 2023-04-21 06:54 | disposition home or self-care (01) ==
PROVIDERS: Emergency Provider Emergency Medicine; Visit Provider Emergency Medicine
DX: O26.891 Other specified pregnancy related conditions, first trimester (principal); R10.9 Unspecified abdominal pain; Z87.891 Personal history of nicotine dependence; Z3A.01 Less than 8 weeks gestation of pregnancy
CPT/HCPCS: 80048; 81001; 84702; 85025; 86900; 86901; 96361; 96374; 99284; J7030; A4216; J2405

== ENCOUNTER 2023-05-06 18:45 | Emergency (ER) | payer MEDICAID, SELFPAY ==
[2023-05-06 18:46] VITALS: BP 131/77; PULSE 97; RESP 14; TEMP 36.3; O2SAT 98; BMI 37.5
--- NOTE | 2023-05-06 19:42 | EDS_ITS ---
HPI History of Present Illness Chief Complaint: Nausea/Vomiting Narrative Narrative: Patient presents with nausea and vomiting for the past 18 hours. She is 8 weeks and has a history of nausea and vomiting she has been through the ED twice before for this in this . She has no abdominal pain. She has no vaginal bleeding or vaginal discharge. She has no back pain. No fevers or chills. PFSH PFSH Medical History Depression Migraine Home Medications ondansetron 4 mg disintegrating tablet 4 mg PO TID PRN nausea and vomiting #21 tabs 04/21/23 [Rx Last Taken Unknown] Allergy/AdvReac Type Severity Reaction Status Date / Time morphine Allergy Swelling Verified 05/06/23 18:46 Surgical History History of surgery History of tonsillectomy and adenoidectomy Social History Smoking Status: Former smoker ROS ROS ED ROS Narrative Past medical history: Reviewed Medications: Reviewed Social history: Noncontributory Review of systems: All systems negative except as indicated General: No fever Neck: No neck pain Cardiovascular: No chest pain Respiratory: No shortness of breath or cough Gastrointestinal: No abdominal pain. There is nausea and vomiting as in HPI Genitourinary: No dysuria Musculoskeletal: Denies myalgias no difficulty with ambulation Skin: No rash EXAM Physical Exam Narrative Exam Narrative: Physical exam General: Patient appears somewhat uncomfortable Head: Normocephalic, Atraumatic Eyes: Conjunctiva not pale ENT: Slightly dry mucous membranes Neck: Supple, Nontender, No lymphadenopathy Cardiovascular: Regular rate, Regular rhythm Respiratory: No distress, CTA bilaterally Abdomen: Soft, Nontender, Nondistended Back: Nontender, Normal Inspection. Negative for: CVA tenderness Extremities: Nontender, No edema Skin: Normal color, No rash Const Vital Signs: 05/06/23 18:46 Temperature 97.4 F L Temperature Source Temporal Pulse Rate 97 Respiratory Rate 14 Blood Pressure 131/77 H Blood Pressure Mean 95 Pulse Ox 98 Oxygen Delivery Method Room Air MDM MDM MDM Narrative Medical decision making narrative: Patient is found to be dehydrated with quite a few ketones in the urine, she will be given IV fluids, she was given antiemetics. At this time she feels improved and is tolerating p.o. I am not worried about any kind of threatened miscarriage since the patient has no abdominal pain has no bleeding. Patient does not meet criteria for an emergent ultrasound at this time. Also since the patient significantly improved I believe she can be safely discharged and does not meet criteria for admission. I talked to mom and the patient both agree with the plan. Mom did give me part of the history. Lab Data Labs: Laboratory Results - last 24 hr 05/06/23 05/06/23 19:50 19:54 WBC 10.7 RBC 5.04 Hgb 12.4 Hct 39.4 MCV 78.2 L MCH 24.6 L MCHC 31.5 L RDW Std Deviation 43.6 RDW Coeff of Pratima 15.6 H Plt Count 256 MPV 11.0 Immature Gran % (Auto) 0.300 Neut % (Auto) 81.0 H Lymph % (Auto) 12.1 L [place] % (Auto) 6.1 Eos % (Auto) 0.3 Baso % (Auto) 0.2 Absolute Neuts (auto) 8.7 H Absolute Lymphs (auto) 1.30 Nucleated RBC % 0 Sodium 138 Potassium 3.5 Chloride 105 Carbon Dioxide 26.0 Anion Gap 7 BUN 7 Creatinine 0.74 Estim Creat Clear Calc 106.39 Est GFR (MDRD) Af Amer 126 Est GFR (MDRD) Non-Af 104 BUN/Creatinine Ratio 9.5 L Glucose 88 Calcium 9.4 Total Bilirubin 0.60 AST 11 L ALT 27 Alkaline Phosphatase 70 Total Protein 8.1 Albumin 3.7 Globulin 4.4 H Albumin/Globulin Ratio 0.8 L Urine Color Yellow Urine Clarity Clear Urine pH 5.0 Ur Specific [place] 1.030 Urine Protein 100 H Urine Glucose (UA) Normal Urine Ketones 150 A* Urine Occult Blood 10 H Urine Nitrite Negative Urine Bilirubin Negative Urine Urobilinogen 1 H Ur Leukocyte Esterase 25 H Urine RBC 0-5 SEEN Urine WBC 0-5 SEEN Ur Squamous Epith Cells 10-25 SEEN Urine Bacteria 1+ Urine Mucus 0 SEEN Discharge Plan Triage Chief Complaint: Nausea/Vomiting ED Provider: David Marley Dx/Rx/DC Orders Clinical Impression: Hyperemesis gravidarum, Acute dehydration, Ketonuria Instructions: Dehydration, ED Hyperemesis Gravidarum Prescriptions: No Action ondansetron 4 mg tablet,disintegrating 4 mg PO TID PRN (Reason: nausea and vomiting) Qty: 21 0RF Primary Care Provider: Dara Rodriguez NP Referrals: Care Physician,No Primary [Non-Staff] - 3-5 Days Disposition Disposition: Home, Self Care
[2023-05-06] MEDS: Ondansetron 4 MG/2 ML Vial IV (19:53)
[2023-05-06] MEDS: 0.9% Normal Saline 1,000 ML 1000 ML IV (19:53)
[2023-05-06 20:00] LABS: Mucous, Urine 0 SEEN /hpf (<or=2+)
[2023-05-06 20:01] LABS: Glucose, Dipstick Normal (Normal); Leukocyte Esterase-Dipstick 25 /ul (Negative); Nitrite-Dipstick Negative (Negative); Occult Blood-Urine 10 /ul (Negative); Protein-Dipstick 100 mg/dl (Negative); Urine Bilirubin Dipstick Negative (Negative); Urine Urobilinogen 1 mg/dl (Normal)
[2023-05-06 20:02] LABS: Absolute Neutrophil Count 8.7 X10^3/uL (2.0-7.7); Basophil# 0.02 X10^3/uL; Basophil% 0.2 % (0-1); Eosinophil# 0.03 X10^3/uL; Eosinophils% 0.3 % (0-5); Hematocrit 39.4 % (37-47); Hemoglobin 12.4 g/dL (12.0-15.0); Lymphocyte % 12.1 % (19-41); Mean Corp Hgb Conc 31.5 g/dL (32-36); Mean Corpuscular Hgb 24.6 pg (27.0-32.0); Mean Corpuscular Volume 78.2 fL (81-99); Monocyte# 0.65 X10^3/uL; Monocyte% 6.1 % (0-10); NRBC Flagged by Analyzer 0 % (0-5); Neutrophil # 8.67 X10^3/uL (2.7-7.7); Platelet Count 256 K/mm3 (150-450); RBC Distribution Width CV 15.6 % (11.6-14.6); RBC Distribution Width SD 43.6 fl (35.1-43.9); Red Blood Count 5.04 M/mm3 (4.2-5.4); White Blood Count 10.7 K/mm3 (4.4-11.0)
[2023-05-06 20:17] LABS: Color, Urine Yellow (Yellow); Ketone-Dipstick 150 mg/dl (Negative); Urine Clarity Clear (Clear)
[2023-05-06 20:20] LABS: Bacteria 1+ /hpf (None Seen); Red Blood Cells-Urine 0-5 SEEN /hpf (0-5); Squamous Epithelial Cells - UA 10-25 SEEN /hpf (5-10); White Blood Cells 0-5 SEEN /hpf (0-5)
[2023-05-06 20:20] LABS: ALB/GLOB Ratio 0.8 RATIO (0.9-2.4); AST(SGOT) 11 U/L (15-37); Alanine Aminotransfer ALT/SGPT 27 U/L (13-56); Albumin, Serum 3.7 g/dL (3.2-5.0); Alkaline Phosphatase 70 U/L (45-117); Anion Gap 7 (5-15); BUN 7 mg/dL (7-18); BUN/Creat Ratio 9.5 RATIO (10-20); Calcium,Total 9.4 mg/dL (8.5-10.1); Chloride 105 mmol/L (98-107); Creatinine, Serum 0.74 mg/dL (0.55-1.02); EST Glomerular Filtration Rate 104 mL/min (>60); Est Glom Filt Rate - Afr Amer 126 mL/min (>60); Estimated Creatinine Clearance 106.39 ml/min; Globulin 4.4 g/dL (2.2-4.2); Glucose 88 mg/dL (74-106); Potassium 3.5 mmol/L (3.5-5.1); Protein, Total 8.1 g/dL (6.4-8.2); Sodium Level 138 mmol/L (136-145)
[2023-05-06] MEDS: Lactated Ringers 1,000 ML 999 ML IV (21:28)
[2023-05-06] MEDS: Famotidine 200 MG/20 ML MDV 20 MG in 0.9% Normal Saline (Pres. free 8 ML 300 MG IV (21:34)
[2023-05-06] MEDS: Dext 5%-0.45% NS 1,000 ML 999 ML IV (23:25)
[2023-05-07 00:23] VITALS: BP 122/87; PULSE 79; RESP 16; O2SAT 99
== END 2023-05-07 00:27 | disposition home or self-care (01) ==
PROVIDERS: Emergency Provider Emergency Medicine; PCP Internal Medicine; Visit Provider Emergency Medicine
DX: O21.1 Hyperemesis gravidarum with metabolic disturbance (principal); Z87.891 Personal history of nicotine dependence; O99.281 Endocrine, nutritional and metabolic diseases complicating pregnancy, first trimester; Z3A.08 8 weeks gestation of pregnancy; O99.891 Other specified diseases and conditions complicating pregnancy; R82.4 Acetonuria
CPT/HCPCS: 80053; 81001; 85025; 96361; 96365; 96375; 99283; J7030; J7120; A4216; J2405; J3490; J7799

== ENCOUNTER 2023-09-15 20:27 | Emergency (ER) | payer MEDICAID, SELFPAY ==
[2023-09-15 20:30] VITALS: BP 124/69; PULSE 121; RESP 16; TEMP 37.1; O2SAT 99; BMI 34.0
[2023-09-15 20:32] VITALS: BP 124/69; PULSE 121; RESP 20; TEMP 37.1; O2SAT 99
--- NOTE | 2023-09-15 20:35 | ED.VIS.DYS ---
HPI History of Present Illness Chief Complaint: Cold Sx [facility] Medical History Depression Migraine Home Medications albuterol sulfate 90 mcg/actuation aerosol inhaler 2 inh inhalation Q4H PRN shortness of breath or wheezing 09/15/23 [History Last Taken Unknown] aspirin 81 mg capsule 81 mg PO DAILY 09/15/23 [History Last Taken Unknown] ondansetron 4 mg disintegrating tablet 4 mg PO Q8H PRN PRN Nausea #10 tabs 09/15/23 [Rx Last Taken Unknown] Allergy/AdvReac Type Severity Reaction Status Date / Time morphine Allergy Swelling Verified 09/15/23 20:29 Surgical History History of surgery History of tonsillectomy and adenoidectomy Social History Smoking Status: Former smoker EXAM Physical Exam Const Vital Signs: 09/15/23 20:30 09/15/23 20:32 09/15/23 20:35 Temperature 98.7 F 98.7 F Temperature Source Temporal Temporal Pulse Rate 121 H 121 H Respiratory Rate 16 20 H Respiratory Pattern Normal Blood Pressure 124/69 H 124/69 H Blood Pressure Mean 87 87 Pulse Ox 99 99 Oxygen Delivery Method 09/15/23 21:13 09/15/23 21:53 Temperature Temperature Source Pulse Rate 108 H 100 Respiratory Rate 16 Respiratory Pattern Blood Pressure Blood Pressure Mean Pulse Ox 98 Oxygen Delivery Method Room Air MDM MDM MDM Narrative Medical decision making narrative: HISTORY OF PRESENT ILLNESS: 23-year-old female here with shortness of breath, cough and congestion. States she received a flu vaccine yesterday. This is when she began having shortness of breath. She notes she is 27 weeks . She further states she has been having nausea vomiting. But denies abdominal pain, vaginal bleeding, leakage of any fluid or passage of any tissue. She is a G2, P1 with 1 living child. REVIEW OF SYSTEMS: Pertinent positives: Shortness of breath, cough, vomiting, nausea Pertinent negatives: abdominal pain, PHYSICAL EXAM: Nursing triage notes reviewed, Vital signs reviewed Constitutional: please see mdm HENT: MMM Eyes: Pupils equal round and reactive to light, Extraocular muscles intact Neck: No stridor, no JVD, full neck ROM Lungs: Clear to auscultation, No wheezing or rales. No increased work of breathing, no conversational dyspnea, no accessory muscle use, no nasal flaring. No respiratory distress noted Heart: Regular rate and rhythm, No murmurs, No rubs and No gallops, 2+ distal pulses (radial, femoral, posterior tibial) in all extremities Abdomen: Soft, there is no tenderness, rigidity, rebound or guarding, no obvious peritoneal signs, no palpable pulsatile abdominal masses, no auscultated abdominal bruit : No CVAT Extremities: No edema Neuro: No focal neurological deficits, cranial nerves II through XII intact, 5/5 strength in all extremities. Intact sensation to light touch in all extremities, 2+ reflexes bilateral patella tendons. Normal gait. No ataxia. Skin: No rash or lesions noted MEDICAL DECISION MAKING: Chief Complaint: Shortness of breath External records reviewed: CXR shows no acute abnormality Factors affecting care: Social determinants of health: none History obtained from others: The patient's mother Consults: none [facility] Narrative: Patient was tachycardic, afebrile, nontoxic-appearing. Exam without focal lung abnormality. I considered the following differential diagnosis: PNA, COVID, flu ALL IMAGES (IF OBTAINED) HAVE BEEN PERSONALLY REVIEWED AND INTERPRETED BY MYSELF. EKG with sinus tachycardia, normal axis, no intervals, no STEMI I have personally reviewed the patient's chest x-ray. Chest x-ray is unremarkable for pulmonary edema, pneumothorax, pneumonia or focal cardiopulmonary abnormality. CBC with leukocytosis (likely reactive secondary to viral URI and ), no anemia, no thrombocytopenia CMP without evidence of acute kidney injury, significant electrolyte abnormality, anion gap, no evidence hepatobiliary pathology. LFTs show no evidence of hepatobiliary pathology. COVID, flu negative The synthesis of the patient's labs images suggest likely viral URI with complicating inflammatory spots from recent flu vaccine. No evidence of pneumonia, COVID or flu. Patient noted improvement after fluids and nausea medicine. Patient was able to tolerate p.o. The patient and/or family, caregivers express understanding. The patient and/or family, caregivers agrees with the plan. Shared decision making: I will have a discussion with the patient and or visitors regarding risk/benefits of further testing or admission. They will be made aware of of the risk/benefits inherent in this decision they will be given the opportunity to voice understanding. Total critical care time today provided was at least 0 minutes. This excludes separately billable procedures. Critical care time (if documented) is secondary to the patient having high probability of clinically significant/life threatening deterioration in the patient's condition which required my urgent intervention. Impression: 1. Tachycardia 2. Second trimester 3. Cough 4. Viral URI Dispo: Discharge Lab Data Labs: Laboratory Results - last 24 hr 09/15/23 21:38 WBC 16.1 H RBC 4.43 Hgb 11.4 L Hct 35.1 L MCV 79.2 L MCH 25.7 L MCHC 32.5 RDW Std Deviation 40.4 RDW Coeff of Pratima 14.1 Plt Count 221 MPV 11.5 Immature Gran % (Auto) 0.400 Neut % (Auto) 89.7 H Lymph % (Auto) 5.0 L [place] % (Auto) 4.2 Eos % (Auto) 0.5 Baso % (Auto) 0.2 Absolute Neuts (auto) 14.4 H Absolute Lymphs (auto) 0.80 L Nucleated RBC % 0 Sodium 138 Potassium 3.6 Chloride 109 H Carbon Dioxide 24.0 Anion Gap 5 BUN 5 L Creatinine 0.73 Estim Creat Clear Calc 120.91 Est GFR (MDRD) Af Amer 127 Est GFR (MDRD) Non-Af 105 BUN/Creatinine Ratio 6.9 L Glucose 99 Calcium 8.8 Total Bilirubin 0.50 AST 13 L ALT 16 Alkaline Phosphatase 102 Total Protein 7.1 Albumin 2.6 L Globulin 4.5 H Albumin/Globulin Ratio 0.6 L Radiography Diagnostic Testing: Clinical Impression(s) from Imaging Studies Chest X-Ray 09/15/23 21:46 IMPRESSION: Peribronchial cuffing indicating bronchial wall inflammation/bronchitis. No pneumonia. Electronically Signed: Pernell Holden MD at 22:03 EST , Discharge Plan Triage Chief Complaint: Cold Sx ED Provider: Fred Malone Dx/Rx/DC Orders Instructions: ED Bronchitis, No Antibiotic (Adult) Prescriptions: New ondansetron 4 mg tablet,disintegrating 4 mg PO Q8H PRN PRN (Reason: Nausea) Qty: 10 0RF No Action albuterol sulfate 90 mcg/actuation HFA aerosol inhaler 2 inh INHALATION Q4H PRN (Reason: shortness of breath or wheezing) Patient Comments: inhale 2 puffs by mouth and INTO THE LUNGS every 4 hours if neede... (REFER TO PRESCRIPTION NOTES). aspirin 81 mg capsule 81 mg PO DAILY Stand Alone Forms: ED Work / School Excuse Primary Care Provider: Dara Rodriguez NP Referrals: Dara Rodriguez NP, [facility] [employer] [facility] [Primary Care Provider] - Activity Restrictions/Additional Instructions: Thank you for trusting us with your care today! Please take Tylenol (2 pills, 650 mg) as needed for fever. Take Zofran as needed for nausea. Please return to the emergency department if your symptoms change or worsen. Please follow with your primary care physician and/or [facility] for further outpatient evaluation and management. Disposition Disposition: Home, Self Care
--- NOTE | 2023-09-15 20:37 | EKG12_ITS ---
Test Reason : DYSRHYTHMIA Blood Pressure : / mmHG Vent. Rate : 115 BPM Atrial Rate : 115 BPM P-R Int : 122 ms QRS Dur : 090 ms QT Int : 314 ms P-R-T Axes : 028 041 020 degrees QTc Int : 434 ms Sinus tachycardia RSR' or QR pattern in V1 suggests right ventricular conduction delay Borderline ECG Confirmed by SANJAY GUZMAN, ROSEMARIE ([id number]), supervising editor trailer CUONG VALENZUELA ([id number]) on 09/17/2023 9:21:38 AM Referred By: Confirmed By:ROSEMARIE GRACE MD
[2023-09-15 21:13] VITALS: PULSE 108; RESP 16; O2SAT 98
[2023-09-15] MEDS: 0.9% Normal Saline (1000mL) 1,000 ML 1000 ML IV (21:35)
[2023-09-15] MEDS: Ondansetron 4 MG/2 ML Vial IV (21:35)
[2023-09-15 21:43] LABS: Absolute Neutrophil Count 14.4 X10^3/uL (2.0-7.7); Basophil# 0.03 X10^3/uL; Basophil% 0.2 % (0-1); Eosinophil# 0.08 X10^3/uL; Eosinophils% 0.5 % (0-5); Hematocrit 35.1 % (37-47); Hemoglobin 11.4 g/dL (12.0-15.0); Mean Corp Hgb Conc 32.5 g/dL (32-36); Mean Corpuscular Hgb 25.7 pg (27.0-32.0); Mean Corpuscular Volume 79.2 fL (81-99); Mean Platelet Vol. 11.5 fl (6.2-12.0); Monocyte# 0.68 X10^3/uL; Monocyte% 4.2 % (0-10); NRBC Flagged by Analyzer 0 % (0-5); Neutrophil # 14.42 X10^3/uL (2.7-7.7); Neutrophil % 89.7 % (47-70); Platelet Count 221 K/mm3 (150-450); RBC Distribution Width CV 14.1 % (11.6-14.6); RBC Distribution Width SD 40.4 fl (35.1-43.9); Red Blood Count 4.43 M/mm3 (4.2-5.4); White Blood Count 16.1 K/mm3 (4.4-11.0)
--- NOTE | 2023-09-15 21:46 | RAD_ITS ---
EXAM: XR CHEST, 2 VIEWS CLINICAL INDICATION: SOB, cough, r/o PNA TECHNIQUE: Frontal and lateral views of the chest. COMPARISON: Previous chest radiograph of 08/13/2018. FINDINGS: LUNGS AND PLEURAL SPACES: Lungs are not hyperinflated. Mild peribronchial cuffing is present indicating bronchial wall inflammation. No consolidation or edema. No pneumothorax. No effusion. HEART: Unremarkable. Cardiac silhouette not enlarged. Normal pulmonary vasculature. MEDIASTINUM: Central airways and mediastinal contour are unremarkable. BONES/JOINTS: Unremarkable. No acute osseous abnormality. SOFT TISSUES: Unremarkable. RAD/Chest PA and Lateral IMPRESSION: Peribronchial cuffing indicating bronchial wall inflammation/bronchitis. No pneumonia. Electronically Signed: Pernell Holden MD at 22:03 EST ,
[2023-09-15 21:53] VITALS: PULSE 100
[2023-09-15 22:10] LABS: ALB/GLOB Ratio 0.6 RATIO (0.9-2.4); AST(SGOT) 13 U/L (15-37); Alanine Aminotransfer ALT/SGPT 16 U/L (13-56); Albumin, Serum 2.6 g/dL (3.2-5.0); Alkaline Phosphatase 102 U/L (45-117); Anion Gap 5 (5-15); BUN 5 mg/dL (7-18); BUN/Creat Ratio 6.9 RATIO (10-20); Calcium,Total 8.8 mg/dL (8.5-10.1); Chloride 109 mmol/L (98-107); Creatinine, Serum 0.73 mg/dL (0.55-1.02); EST Glomerular Filtration Rate 105 mL/min (>60); Est Glom Filt Rate - Afr Amer 127 mL/min (>60); Estimated Creatinine Clearance 120.91 ml/min; Globulin 4.5 g/dL (2.2-4.2); Glucose 99 mg/dL (74-106); Potassium 3.6 mmol/L (3.5-5.1); Protein, Total 7.1 g/dL (6.4-8.2); Sodium Level 138 mmol/L (136-145)
[2023-09-15] MEDS: Famotidine 200 MG/20 ML MDV 20 MG in 0.9% Normal Saline (Pres. free 8 ML 300 MG IV (22:33)
[2023-09-15 23:02] VITALS: PULSE 70; RESP 14
== END 2023-09-15 23:03 | disposition home or self-care (01) ==
PROVIDERS: Emergency Provider Emergency Medicine; PCP Internal Medicine; Visit Provider Emergency Medicine
DX: O99.512 Diseases of the respiratory system complicating pregnancy, second trimester (principal); J06.9 Acute upper respiratory infection, unspecified; Z3A.27 27 weeks gestation of pregnancy; R00.0 Tachycardia, unspecified; Z87.891 Personal history of nicotine dependence; O99.891 Other specified diseases and conditions complicating pregnancy; R05.9 Cough, unspecified
CPT/HCPCS: 71046; 80053; 85025; 87428; 93005; 96361; 96365; 96375; 99284; J7030; A4216; J2405; J3490

== ENCOUNTER 2023-11-20 01:02 | Outpatient (CLI) | payer MEDICAID, SELFPAY ==
--- OUTSIDE RECORDS SUMMARY | 2023-11-20 01:07 | XMS RPT_ITS | CCD ---
Author Name Unknown Address [address] [place] [address] Organization [facility] Care Team Providers Care Steward/Stewardess [employer] Car Name Role Phone NICKO TAVERAS Unavailable Unavailable PLAYL, KEVIN M Unavailable Unavailable MARCELINO, KEVIN Unavailable Unavailable PLAYL, KEVIN M Unavailable Unavailable KAROL MANUEL MD Admitting Unavailable KAROL MANUEL MD Attending Unavailable KAROL MANUEL MD Primary Care Unavailable PLAYL, KEVIN Consulting Unavailable PLAYL, KEVIN Referring Unavailable PROVIDER, UNKNOWN Consulting Unavailable Playl Kevin GUZMAN Primary Care Provider Kevin Man MD Primary Care Provider Kevin Man MD Primary Care Provider Michael NOGUERA, Kar Primary Care Provider [phone] KAR RODRIGUEZ Attending Unavailable PLAYL, KEVIN M Primary Care Unavailable MICHAEL, KAR Referring Unavailable PLAYL, KEVIN M Primary Care Unavailable MICHAEL, KAR Primary Care Unavailable PLAYL, KEVIN M Primary Care Unavailable GERMAIN BERGERON Attending Unavail able MICHAEL, KAR Primary Care Unavailable SUMAYA GOLD Attending Unavailable MICHAEL, KAR Primary Care Unavailable ARNAV FELICIANO Attending Unavailable MICHAEL, KAR Primary Care Unavailable MICHAEL, KAR Primary Care Unavailable LAURA CAVANAUGH Referring Unavailable MICHAEL, KAR Primary Care Unavailable WISWELL, NAYANA Referring Unavailable MICHAEL, KAR Primary Care Unavailable HONORIO OVALLE Referring Unavailable MICHAEL, KAR Primary Care Unavailable WISWELL, NAYANA Referring Unavailable MICHAEL, KAR Primary Care Unavailable GERAMIN BERGERON Attending Unavail able ADRIELWELL, NAYANA Referring Unavailable MICHAEL, KAR Primary Care Unavailable PLOTTS, KAREY Referring Unavailable MICHAEL, KAR Primary Care Unavailable PLOTTS, KAREY Referring Unavailable PLOTTS, KAREY Attending Unavailable MICHAEL, KAR Primary Care Unavailable PLOTTS, KAREY Attending Unavailable MICHAEL, KAR Primary Care Unavailable WISWELL, NAYANA Referring Unavailable MICHAEL, KAR Primary Care Unavailable HONORIO OVALLE Attending Unavailable MICHAEL, KAR Primary Care Unavailable PLOTTS, KAREY Referring Unavailable MICHAEL, KAR Primary Care Unavailable PLOTTS, KAREY Referring Unavailable GERMAIN BERGERON Attending Unavail able MICHAEL, KAR Primary Care Unavailable WISWELL, NAYANA Referring Unavailable MICHAEL, KAR Primary Care Unavailable WISWELL, NAYANA Attending Unavailable MICHAEL, KAR Primary Care Unavailable WISWELL, NAYANA Attending Unavailable WISWELL, NAYANA Referring Unavailable MICHAEL, KAR Primary Care Unavailable ARNAV FELICIANO Attending Unavailable MICHAEL, KAR Primary Care Unavailable SUMAYA GOLD Referring Unavailable MICHAEL, KAR Primary Care Unavailable WISWELL, NAYANA Referring Unavailable Allergies Allergy Classification Reported Allergen(s) Allergy Type Date of Onset Reaction(s) Facility (20 sources) Morphine; Translations: [MORPHINE] Drug Allergy 09-09-2021 [facility] Work Phone: Medications Current Medications Medication Drug Class(es) Dates Sig (Normalized) Sig (Original) Breast Pump (9 sources) Start: 04-17-2022 End: 04-17-2023 Breast Pump Indications: care and examination of lactating mother Use as directed 1 Each 0 04/17/2022 04/17/2023 Active Completed/Discontinued Medications Medication Drug Class(es) Dates Sig (Normalized) Sig (Original) [id number] 200 actuat albuterol 0.09 mg/actuat metered dose inhaler (4 sources) beta2-Adrenergic Agonist Start: 07-21-2023 take 2 puff(s) by inhalation every four hours as needed for wheezing albuterol HFA (PROVENTIL HFA, VENTOLIN HFA) 90 mcg/actuation inhaler Indications: Wheezing , URI, acute Inhale 2 Puffs as instructed every 4 hours as needed for wheezing/shortnes s of breath. 1 Each 0 07/21/2023 Active Problems Active Problems Problem Classification Problem Date Documented Da te Episodic/Chronic Administrative/social admission (1 source) finding; Translations: [Other specified counseling] Episodic Attention-deficit, conduct, and disruptive behavior disorders (20 sources) Attention deficit hyperactivity disorder; Translations: [Attention-deficit hyperactivity disorder, unspecified type] 09-26-2011 Chronic Contraceptive and procreative management (4 sources) Patient encounter status; Translations: [Encounter for initial prescription of contraceptive pills] Episodic Diabetes mellitus without complication (1 source) Other abnormal glucose; Translations: [Elevated glucose] Onset: 10-06-2023 Episodic Immunizations and screening for infectious disease (1 source) Vaccination needed; Translations: [Encounter for immunization] Episodic Malposition; malpresentation (2 sources) Breech presentation; Translations: [Maternal care for breech presentation, not applicable or unspecified] Episodic Menstrual disorders (2 sources) Missed period; Translations: [Irregular menstruation, unspecified] Onset: 01-26-2023 Chronic Mood disorders (20 sources) Depressive disorder; Translations: [Depression] Onset: 08-03-2017 08-03-2017 Chronic Mood disorders (1 source) Mood swings; Translations: [Emotional lability] Episodic Mood disorders (1 source) Mood disorders; Translations: [Depression, unspecified depression type] Onset: 08-03-2017 Other complications of (2 sources) Maternal obesity complicating , childbirth and the puerperium, antepartum; Translations: [Obesity complicating , third trimester] Chronic Other complications of (1 source) Obesity complicating , third trimester; Translations: [Obesity affecting in third trimester, unspecified obesity type] Onset: 10-26-2023 Chronic Other complications of (1 source) Obesity complicating , unspecified trimester; Translations: [Obesity in ] Onset: 07-08-2023 Chronic Other complications of (1 source) Vaginal discharge; Translations: [Other specified related conditions, third trimester] Episodic Other complications of (1 source) Mild hyperemesis gravidarum; Translations: [Mild hyperemesis gravidarum] 06-03-2023 Episodic Other complications of (1 source) Nausea and vomiting; Translations: [Vomiting of , unspecified] 07-08-2023 Episodic Other lower respiratory disease (1 source) Wheezing; Translations: [Wheezing] 07-21-2023 Episodic Other nutritional; endocrine; and metabolic disorders (20 sources) Obesity; Translations: [Obesity, unspecified] Onset: 03-09-2015 03-09-2015 Chronic Other nutritional; endocrine; and metabolic disorders (13 sources) Body mass index 40+ - severely obese; Translations: [Morbid (severe) obesity due to excess calories] Onset: 02-02-2023 02-02-2023 Chronic Other upper respiratory infections (1 source) Acute upper respiratory infection; Translations: [Acute upper respiratory infection, unspecified] 07-21-2023 Episodic Residual codes; unclassified (1 source) Gestation period, 28 weeks; Translations: [28 weeks gestation of ] Episodic Residual codes; unclassified (1 source) Gestation period, 30 weeks; Translations: [30 weeks gestation of ] Episodic Residual codes; unclassified (2 sources) Gestation period, 32 weeks; Translations: [32 weeks gestation of ] Episodic Residual codes; unclassified (1 source) Gestation period, 34 weeks; Translations: [34 weeks gestation of ] Episodic Residual codes; unclassified (1 source) Gestation period, 35 weeks; Translations: [35 weeks gestation of ] Episodic Residual codes; unclassified (1 source) Gestation period, 37 weeks; Translations: [37 weeks gestation of ] Episodic Residual codes; unclassified (1 source) Gestation period, 38 weeks; Translations: [38 weeks gestation of ] Episodic Residual codes; unclassified (1 source) Gestation period, 8 weeks; Translations: [8 weeks gestation of ] 2023 Episodic Residual codes; unclassified (1 source) Gestation period, 13 weeks; Translations: [13 weeks gestation of ] 06-03-2023 Episodic Residual codes; unclassified (1 source) Gestation period, 18 weeks; Translations: [18 weeks gestation of ] 07-08-2023 Episodic Residual codes; unclassified (1 source) Gestation period, 19 weeks; Translations: [19 weeks gestation of ] 07-17-2023 Episodic Residual codes; unclassified (1 source) Gestation period, 22 weeks; Translations: [22 weeks gestation of ] 08-06-2023 Episodic Residual codes; unclassified (1 source) 31 weeks gestation of ; Translations: [31 weeks gestation of ] Onset: 10-26-2023 Episodic Past or Other Problems Problem Classification Problem Date Documented Da te Episodic/Chronic Abdominal pain (2 sources) Generalized abdominal pain; Translations: [Epigastric pain] Onset: 02-02-2023 Episodic Diabetes or abnormal glucose tolerance complicating ; childbirth; or the puerperium (20 sources) Impaired glucose tolerance in ; Translations: [Abnormal glucose complicating ] Onset: 02-05-2022 02-05-2022 Episodic Other complications of ; puerperium affecting management of mother (20 sources) Disorder of structure; Translations: [Maternal care for other (suspected) abnormality and damage, fetus 1] Onset: 12-11-2021 Episodic Other complications of (20 sources) High risk ; Translations: [Supervision of high risk , unspecified, second trimester] Onset: 10-16-2021 10-16-2021 Episodic Other complications of (13 sources) Finding of pattern of ; Translations: [Supervision of other high risk pregnancies, unspecified trimester] Onset: 04-13-2023 Episodic Other complications of (1 source) Supervision of high risk , unspecified, second trimester; Translations: [Supervision of high risk in second trimester] Onset: 10-16-2021 Episodic Other complications of (1 source) Vomiting of , unspecified; Translations: [Nausea/vomiting in ] Onset: 07-08-2023 Episodic Other complications of (1 source) Other specified related conditions, unspecified trimester; Translations: [ with generalized abdominal pain, antepartum] Onset: 04-16-2023 Episodic Other and delivery including normal (12 sources) Normal ; Translations: [Encounter for supervision of normal first , third trimester] Onset: 06-03-2023 Episodic Other screening for suspected conditions (not mental disorders or infectious disease) (3 sources) Encounter for other screening follow-up; Translations: [Encounter for screening for lipoid disorders] Onset: 02-02-2023 Episodic Previous (14 sources) ; Translations: [Maternal care for unspecified type scar from previous delivery] Onset: 04-13-2023 Episodic Residual codes; unclassified (13 sources) FH: Congenital anomaly; Translations: [Family history of other congenital malformations, deformations and chromosomal abnormalities] Onset: 04-13-2023 Episodic Residual codes; unclassified (1 source) 18 weeks gestation of ; Translations: [18 weeks gestation of ] Onset: 07-08-2023 Episodic Residual codes; unclassified (1 source) 8 weeks gestation of ; Translations: [8 weeks gestation of ] Onset: 06-03-2023 Episodic Screening and history of mental health and substance abuse codes (20 sources) H/O: depression; Translations: [Personal history of other mental and behavioral disorders] Onset: 09-09-2021 09-09-2021 Episodic Results Test Name Value Interpretation Reference Range Facil ity Vital Signs Date Time Vital Sign Value Performing Clinician Ralph wright 08-06-2023 15:35-0400 Body weight 99.34 kg Sumaya Gold MD Work Phone: [facility] 08-06-2023 15:35-0400 Diastolic blood pressure 62 mm[Hg] Sumaya Gold MD Work Phone: [facility] 08-06-2023 15:35-0400 Systolic blood pressure 104 mm[Hg] Sumaya Gold MD Work Phone: [facility] 08-06-2023 15:02-0400 Body height 165.1 cm Ob Ultrasound Work Phone: [facility] 08-06-2023 15:02-0400 Body weight 99.34 kg Ob Ultrasound Work Phone: [facility] 07-21-2023 09:05-0400 Body temperature 98.4 [degF] Laura Mao [employer] Work Phone: [facility] 07-21-2023 09:05-0400 Body weight 99.52 kg Laura Cavanaugh [employer] Work Phone: [facility] 07-21-2023 09:05-0400 Diastolic blood pressure 78 mm[Hg] Laura Mao [employer] Work Phone: [facility] 07-21-2023 09:05-0400 Heart rate 94 /min Laura Mao [employer] Work Phone: [facility] 07-21-2023 09:05-0400 Respiratory rate 16 /min Laura Cavanaugh [employer] Work Phone: [facility] 07-21-2023 09:05-0400 SaO2% (BldA) [Mass fraction] 96 % Laura Cavanaugh [employer] Work Phone: [facility] 07-21-2023 09:05-0400 Systolic blood pressure 122 mm[Hg] Laura Cavanaugh ROGELIO.[employer] Work Phone: [facility] 07-08-2023 09:11-0400 Body weight 98.88 kg Germain Mirza MD Work Phone: [facility] 07-08-2023 09:11-0400 Diastolic blood pressure 68 mm[Hg] Germain Mirza MD Work Phone: [facility] 07-08-2023 09:11-0400 Systolic blood pressure 110 mm[Hg] Germain Mirza MD Work Phone: [facility] 06-03-2023 10:37-0400 Body weight 105.69 kg Arnav Feliciano MD Work Phone: [facility] 06-03-2023 10:37-0400 Diastolic blood pressure 70 mm[Hg] Arnav Feliciano MD Work Phone: [facility] 06-03-2023 10:37-0400 Systolic blood pressure 116 mm[Hg] Arnav Feliciano MD Work Phone: [facility] 2023 11:33-0400 Body height 165.1 cm Nayana Peterson MD Work Phone: [facility] 2023 11:33-0400 Body weight 105.42 kg Nayana Peterson MD Work Phone: [facility] 2023 11:33-0400 Diastolic blood pressure 78 mm[Hg] Nayana Peterson MD Work Phone: [facility] 2023 11:33-0400 Systolic blood pressure 120 mm[Hg] Nayana Peterson MD Work Phone: [facility] 01-26-2023 15:31-0400 Body weight 108 kg Germain Mirza MD Work Phone: [facility] 01-26-2023 15:31-0400 Diastolic blood pressure 60 mm[Hg] Germain Mirza MD Work Phone: [facility] 01-26-2023 15:31-0400 Systolic blood pressure 100 mm[Hg] Germain Mirza MD Work Phone: [facility] 06-09-2022 08:43-0400 Body weight 100.43 kg Nayana Peterson MD Work Phone: [facility] 06-09-2022 08:43-0400 Diastolic blood pressure 60 mm[Hg] Nayana Peterson MD Work Phone: [facility] 06-09-2022 08:43-0400 Systolic blood pressure 100 mm[Hg] Nayana Peterson MD Work Phone: [facility] 05-05-2022 08:33-0400 Body weight 98.7 kg Nayana Peterson MD Work Phone: [facility] 05-05-2022 08:33-0400 Diastolic blood pressure 70 mm[Hg] Nayana Peterson MD Work Phone: [facility] 05-05-2022 08:33-0400 Systolic blood pressure 110 mm[Hg] Nayana Peterson MD Work Phone: [facility] 04-17-2022 15:36-0400 Body weight 106.78 kg Nayana Peterson MD Work Phone: [facility] 04-17-2022 15:36-0400 Diastolic blood pressure 66 mm[Hg] Nayana Peterson MD Work Phone: [facility] 04-17-2022 15:36-0400 Systolic blood pressure 100 mm[Hg] Nayana Peterson MD Work Phone: [facility] 04-09-2022 08:36-0400 Body weight 105.51 kg Nayana Peterson MD Work Phone: [facility] 06-22-2022 08:36-0400 Diastolic blood pressure 62 mm[Hg] Nayana Peterson MD Work Phone: [facility] 04-09-2022 08:36-0400 Systolic blood pressure 102 mm[Hg] Nayana Peterson MD Work Phone: [facility] 03-27-2022 14:31-0400 Body weight 103.24 kg Sumaya Gold MD Work Phone: [facility] 03-27-2022 14:31-0400 Diastolic blood pressure 62 mm[Hg] Sumaya Gold MD Work Phone: [facility] 03-27-2022 14:31-0400 Systolic blood pressure 100 mm[Hg] Sumaya Gold MD Work Phone: [facility] 03-19-2022 08:32-0400 Body weight 101.61 kg Nayana Peterson MD Work Phone: [facility] 03-19-2022 08:32-0400 Diastolic blood pressure 62 mm[Hg] Nayana Peterson MD Work Phone: [facility] 03-19-2022 08:32-0400 Systolic blood pressure 100 mm[Hg] Nayana Peterson MD Work Phone: [facility] 03-05-2022 08:56-0400 Body weight 99.79 kg Tamra Rosario [employer].CNM Work Phone: [facility] 03-05-2022 08:56-0400 Diastolic blood pressure 58 mm[Hg] Tamra Rosario [employer].CNM Work Phone: [facility] 03-05-2022 08:56-0400 Systolic blood pressure 100 mm[Hg] Tamra Rosario [employer].CNM Work Phone: [facility] 02-19-2022 16:23-0400 Body weight 98.88 kg Nayana Peterson MD Work Phone: [facility] 02-19-2022 16:23-0400 Diastolic blood pressure 60 mm[Hg] Nayana Peterson MD Work Phone: [facility] 02-19-2022 16:23-0400 Systolic blood pressure 100 mm[Hg] Nayana Peterson MD Work Phone: [facility] 02-05-2022 09:010400 Body weight 97.98 kg Germain Mirza MD Work Phone: [facility] 02-05-2022 09:010400 Diastolic blood pressure 64 mm[Hg] Germain Mirza MD Work Phone: [facility] 02-05-2022 09:010400 Systolic blood pressure 108 mm[Hg] Germain Mirza MD Work Phone: [facility] Encounters Encounter Date Encounter Type Care Provider Facility Start: 11-16-2023 End: 11-16-2023 [facility] Facility:[facility] Start: 11-09-2023 End: 11-09-2023 ambulatory [facility] Facility:[facility] Start: 10-26-2023 End: 10-26-2023 ambulatory KAR MICHAEL Facility:[facility] Start: 10-26-2023 End: 10-27-2023 ambulatory KAR MICHAEL Facility:[facility] Start: 10-09-2023 End: 10-09-2023 [facility] Start: 10-05-2023 End: 10-06-2023 [facility] Start: 09-14-2023 End: 09-14-2023 ambulatory KAR MICHAEL Facility:[facility] Start: 08-10-2023 Telephone encounter Sumaya varela MD Work Phone: OB/Gynecology Procedures Date Procedure Procedure Detail Performing Clinician Start: 08-06-2023 URINE OB DIP B/O Sumaya Gold MD Work Phone: Start: 08-06-2023 Us preg uterus after 1st trimest 1/ gestation Nayana Peterson MD Work Phone: Start: 07-21-2023 Radiologic exam ches t 2 views Laura Cavanaugh [employer] Work Phone: Start: 07-17-2023 Us preg uterus after 1st trimest 10/19 gestation Nayana Peterson MD Work Phone: Start: 07-08-2023 Antibody screen KAR BRAXTON Plan of Treatment Date Care Activity Detail Author Start: 02-06-2032 Urine microalbumin profile [facility] Start: 09-18-2024 PAP TESTING PAP TESTING [facility] Start: 2024 CHLAMYDIA SCREENING (18-24) CHLAMYDIA SCREENING (18-24) [facility] Start: 2024 GC (GONORRHEA) SCREENING (18-24) GC (GONORRHEA) SCREENING (18-24) [facility] Start: 08-06-2023 End: 11-05-2023 CBC W Auto Differential panel - Blood CBC + DIFF Lab Routine Supervision of high risk in second trimester Expected: 08/06/2023, Expires: 11/05/2023 [facility] Work Phone: Immunizations Immunization Date Immunization Notes Care Provider Fa mariela 02-05-2022 tetanus toxoid, redu jaleel diphtheria toxoid, and acellular pertussis vaccine, adsorbed Germain Mirza MD Work Phone: [facility] 07-13-2017 influenza, injectabl e, quadrivalent, preservative free Germain Mirza MD Work Phone: [facility] Work Phone: 07-13-2017 influenza virus vacc ine, unspecified formulation Germain Mirza MD Work Phone: [facility] 08-18-2016 influenza, injectabl e, quadrivalent, preservative free Germain Mirza MD Work Phone: [facility] Work Phone: 08-18-2016 meningococcal polysaccharide (groups A, C, Y and W-135) diphtheria toxoid conjugate vaccine (MCV4P) Germain Mirza MD Work Phone: [facility] Work Phone: 02-29-2016 hepatitis A vaccine, pediatric/adolescent dosage, 2 dose schedule Germain Mirza MD Work Phone: [facility] 07-24-2014 hepatitis A vaccine, pediatric/adolescent dosage, 2 dose schedule Germain Mirza MD Work Phone: [facility] Work Phone: 07-24-2014 human papilloma viru s vaccine, quadrivalent Germain Mirza MD Work Phone: [facility] Work Phone: 07-24-2014 influenza, live, intranasal, quadrivalent Germain Mirza MD Work Phone: [facility] Work Phone: 07-21-2013 human papilloma viru s vaccine, quadrivalent Germain Mirza MD Work Phone: [facility] 07-21-2013 influenza virus vacc ine, live, attenuated, for intranasal use Germain Mirza MD Work Phone: [facility] 05-20-2013 human papilloma viru s vaccine, quadrivalent Germain Mirza MD Work Phone: [facility] 05-20-2013 varicella virus vaccine Oral Mirza MD Work Phone: [facility] 08-06-2012 influenza virus vacc ine, live, attenuated, for intranasal use Germain Mirza MD Work Phone: [facility] 08-06-2012 Meningococcal, MCV4, unspecified conjugate formulation(groups A, C, Y and W-135) Germain Mirza MD Work Phone: [facility] 08-06-2012 tetanus toxoid, redu jaleel diphtheria toxoid, and acellular pertussis vaccine, adsorbed Germain Mirza MD Work Phone: [facility] 08-06-2011 influenza virus vacc ine, live, attenuated, for intranasal use Germain Mirza MD Work Phone: [facility] 10-16-2008 influenza virus vacc ine, unspecified formulation Germain Mirza MD Work Phone: [facility] Work Phone: 05-08-2005 diphtheria, tetanus toxoids and acellular pertussis vaccine Germain Mirza MD Work Phone: [facility] Work Phone: 05-08-2005 measles, mumps and rubella virus vaccine Germain Mirza MD Work Phone: [facility] Work Phone: 05-08-2005 poliovirus vaccine, inactivated Germain Mirza MD Work Phone: [facility] Work Phone: 08-04-2001 haemophilus influenz ae type b vaccine, HbOC conjugate Germain Mirza MD Work Phone: [facility] Work Phone: 08-04-2001 varicella virus vaccine Oral Mirza MD Work Phone: [facility] Work Phone: 05-13-2001 diphtheria, tetanus toxoids and acellular pertussis vaccine Germain Mirza MD Work Phone: [facility] Work Phone: 05-13-2001 measles, mumps and rubella virus vaccine Germain Mirza MD Work Phone: [facility] Work Phone: 05-13-2001 poliovirus vaccine, inactivated Germain Mirza MD Work Phone: [facility] Work Phone: 2000 diphtheria, tetanus toxoids and acellular pertussis vaccine Germain Mirza MD Work Phone: [facility] Work Phone: 2000 haemophilus influenz ae type b vaccine, HbOC conjugate Germain Mirza MD Work Phone: [facility] Work Phone: 2000 hepatitis B vaccine, pediatric or pediatric/adolescent dosage Germain Mirza MD Work Phone: [facility] Work Phone: 2000 pneumococcal conjuga te vaccine, 7 valent Germain Mirza MD Work Phone: [facility] Work Phone: 2000 diphtheria, tetanus toxoids and acellular pertussis vaccine Germain Mirza MD Work Phone: [facility] Work Phone: 2000 haemophilus influenz ae type b vaccine, HbOC conjugate Germain Mirza MD Work Phone: [facility] Work Phone: 2000 pneumococcal conjuga te vaccine, 7 valent Germain Mirza MD Work Phone: [facility] Work Phone: 2000 poliovirus vaccine, inactivated Germain Mirza MD Work Phone: [facility] Work Phone: 2000 diphtheria, tetanus toxoids and acellular pertussis vaccine Germain Mirza MD Work Phone: [facility] Work Phone: 2000 haemophilus influenz ae type b vaccine, HbOC conjugate Germain Mirza MD Work Phone: [facility] Work Phone: 2000 pneumococcal conjuga te vaccine, 7 valent Germain Mirza MD Work Phone: [facility] Work Phone: 2000 poliovirus vaccine, inactivated Germain Mirza MD Work Phone: [facility] Work Phone: 2000 hepatitis B vaccine, pediatric or pediatric/adolescent dosage Germain Mirza MD Work Phone: [facility] Work Phone: 2000 hepatitis B vaccine, pediatric or pediatric/adolescent dosage Germain Mirza MD Work Phone: [facility] Work Phone: Payers Date Payer Category Payer Unknown [id number] 2019 Medicaid [employer] [id number] 2019-Present [phone] [address] [place] [address] Medicaid [id number] 2019 Medicaid [id number] 2017 Medicaid [id number] 2000 Unknown [id number] Social History Date Type Detail Facility Start: 09-09-2021 End: 04-13-2023 Tobacco smoking status DCIS Ex-smoker [facility] Work Phone: End: 01-07-2022 History of tobacco use Current smoker [facility] Work Phone: End: 01-07-2022 History of tobacco use Cigarette Smoker [facility] Work Phone: Start: 09-09-2021 End: 04-13-2023 Tobacco use and exposure Smokeless tobacco non-user [facility] Work Phone: Start: 01-08-2022 End: 02-02-2023 Alcohol intake Lifetime non-drinker (finding) [facility] Start: 09-09-2021 History SDOH Alcohol Frequency 1 [facility] Start: 09-09-2021 Education 11 [facility] Start: 08-05-2021 [facility] Start: 2000 Sex Assigned At Not on file [facility] Start: 01-26-2022 End: 04-17-2022 Exposure to SARS-CoV-2 (event) Not sure [facility] Work Phone: Start: 02-02-2023 Tobacco smoking stat us DCIS Smokes tobacco daily [facility] Work Phone: Start: 04-13-2023 End: 08-06-2023 Alcohol intake Ex-drinker (finding) [facility] Start: 04-13-2023 [facility] Start: 04-13-2023 End: 2023 History of Social function [facility] Start: 04-13-2023 End: 2023 Tobacco use panel [facility] The thought of serina osman myself has occurred to me Sometimes [facility] National Score (1-10 0), lower number is lower risk 47 [facility] Goals Date Patient Goal Desired Activity /State Personal health goal Clinical Notes 09-09-2021 to 11-16-2023 Telephone Encounter - Sarah Choudhary LPN - 08/31/2023 1:54 PM ESTTelephone Encounter - Sarah Choudhary LPN - 08/31/2023 10:46 AM ESTPatient InstructionsPatient InstructionsPatient Instructions Note Date & Type Note Facility 11-16-2023 Note HNO ID: [id number] Author: GERMAIN BERGERON MD Service: ? Author Type: Physician Type: Procedures Filed: 11/16/2023 11:15 Note Text: NST SUMMARY PROVIDER ASSESSMENT AND INTERPRETATION Luis Eduardo Coats is a 23 year old female, , who is at 36w6d with an RAIMUNDO of 12/08/2023, by Last Menstrual Period dating method. Indications for NST: Obesity Baseline: 145 Variability: Moderate Accelerations: Present 15 X 15 Decelerations: None Contractions: TOCO: Irregular Interpretation: Category I and Reactive SIGNATURE: Germain Del Valle MD Nst [facility] 09-14-2023 Note HNO ID: [id number] Author: Loan Ren Ma Service: ? Author Type: ? Type: Progress Notes Filed: 09/14/2023 12:00 PM Note Text: Patient identified by name and date of . Luis Eduardo Coats presents today for a vaccination of Tdap. Patient denies an allergy to latex: yes Patient denies a severe (life-threatening) allergy to a previous dose of Tdap, DTP, DTaP, DT or Td vaccine. Yes Patient denies history of epilepsy or neurological problems: Yes Patient is afebrile and denies being moderately or severely ill: Yes Patient denies history of Guillain-Largo Syndrome (a severe paralytic illness): Yes Tdap Adacel injection was given without incident. See immunizations for details of immunizations administered today. VIS sheet provided: Yes Provider Dr Feliciano was present in office at time of injection. Sylvia Campbell LPN [facility] 08-31-2023 Miscellaneous Notes Formattin g of this note might be different from the original. No PA needed, pt was able to pear picker at pharmacy. Sarah Choudhary LPN No response from pt's insurance, resubmitted PA. Will await further response from pt's insurance. Sarah Choudhary LPN Electronic PA submitted for Diclegis. Will await further response from pt's insurance. Sarah Choudhary LPN documented in this encounter [facility] 08-06-2023 Miscellaneous Notes Formattin g of this note might be different from the original. KJ - VB No. LOF No. CTXS No. Movement: present. Other c/o: No. Medication list reviewed. Physical Exam See Flow Sheet Gen: no accute distress, well appearing A/P 22w2d Estimated Date of Delivery: 12/08/23 Anatomy US today 28wk labs next visit Rx folic acid & iron as not taking PNV Sumaya Gold MD documented in this encounter [facility] 08-06-2023 Instructions Masters Brett Kasia - 08/06/2023 3:29 PM EDT SEQUENTIAL SCREENINGS The [facility] offers sequential screenings for women who are interested in screenings for chromosomal abnormalities and certain defects during a . The sequential screen combines ultrasound and blood tests to determine the risk of chromosomal abnormalities, including Down's Syndrome (Trisomy 21) and Trisomy 18, as well as open neural tube defects including spina bifida. Ultrasound examination is performed between 11 weeks and 13 weeks gestational age. Blood tests are drawn after the ultrasound and again later in the between 15 and 21 weeks gestational age. Please let your physician know if you are interested in this testing. It will require an appointment with our emergency response technician. This is not an ultrasound performed by a physician in our office during a routine visit. SIGNS AND SYMPTOMS OF LABOR 1. Contractions every 10 minutes or more often 2. Clear, pink, or brownish fluid (water) leaking from vagina 3. Feeling that baby is pushing down, pressure 4. Low, dull backache 5. Cramps that feel like a period 6. Cramps with or without diarrhea If you notice any of the above symptoms, contact our office at [phone] and ask to speak with a nurse. After hours, you can call doctors registry at [phone] OR call [facility] at [phone] and ask to have the doctor precision agriculture technician paged. If you consider this an emergency, dial 9--1 or go to your nearest emergency department. NEED HELP? Are you dealing with a violent or abusive relationship? Are you a victim of rape or sexual assult? Call [facility] ([place]) 24 hour Crisis Hotline: 281.362.9785 or 197-319-8710. MANUAL Your Guide to a Healthy manual is now on-line. Visit [email or web address] to download your free copy documented in this encounter [facility] 07-21-2023 Note HNO ID: [id number] Author: Nicole Lund RT(R) Service: Radiology Author Type: Technologist Type: Progress Notes Filed: 07/21/2023 9:24 AM Note Text: Radiology Service Progress Note PATIENT NAME: Luis Eduardo Coats DATE OF SERVICE: July 21, 2023 TIME: 9:17 AM PATIENT IDENTITY VERIFICATION COMPLETED USING TWO (2) IDENTIFIERS: Name and Date of confirmed by patient verbally. FALL SCREENING: Has the patient had 2 falls in the last year or 1 fall with injury or currently using an Ambulatory Assistive Device (Walker, Cane, Wheelchair, Crutches, etc.)? No PATIENT GENDER DATA: Female. status: : Yes. Radiologist notified: per protocol Radiologist not needed to verify. status: NO. PATIENT RELEVANT IMPLANT DATA REVIEWED: Not Applicable RADIOLOGY DEPARTMENT: General X-ray: Exam(s) Completed: Chest X-Ray PERIPHERAL IV DATA: Not applicable SIGNED BY: RT Claire(R) July 21, 2023 9:17 AM [facility] 07-21-2023 Note HNO ID: [id number] Author: Laura Cavanaugh APRN.ALL ROUND LOGGER Service: ? Author Type: Nurse Practitioner Type: Progress Notes Filed: 07/21/2023 12:04 PM Note Text: Subjective HPI HPI Luis Eduardo Coats is a 23 year old female who presents today for CC of cough, st sob, h/a. This started 2 days ago. Has tried otc medication for relief. Symptoms are worsened by nothing. Risk factors sick exposures at work. 20 weeks . Reports needing inhaler as a child but not as adult. Quit smoking for . .Patient presents with: Cough: Cough, ST, congestion and MORAN x 2 days PAST MEDICAL HISTORY Diagnosis Date Depression Obese 03/09/2015 depression PAST SURGICAL HISTORY Procedure Laterality Date DELIVERY ONLY 04/24/2022 LTCS PAST SURGICAL HISTORY OF 10/19/2003 Left eye surgery following dog bite-Dr. Stevie Henson [facility] TONSILLECTOMY AND ADENOIDECTOMY Dr. Castro ALLERGIES Morphine MEDICATIONS aspirin 81 mg chewable tablet Take 81 mg by mouth once daily. Taking 2 daily ondansetron orally disintegrating (ZOFRAN ODT) 4 mg disintegrating tablet Take 1 tablet by mouth every 8 hours as needed for nausea/vomiting. albuterol HFA (PROVENTIL HFA, VENTOLIN HFA) 90 mcg/actuation inhaler Inhale 2 Puffs as instructed every 4 hours as needed for wheezing/shortness of breath. Inhalational Spacing Device 1 Device one time only for 1 dose. doxylamine-pyridoxine, vit B6, (DICLEGIS) 10-10 mg TbEC Take 2 tabs at night. If symptoms persist after 2 days add one tab in the morning. If symptoms still persist after 4 days add a tab mid-day (Patient not taking: Reported on 07/21/2023) vits62/FA/om3/dha/epa ( GUMMY ORAL) Take by mouth. (Patient not taking: Reported on 07/21/2023) FAMILY HISTORY Problem Relation Age of Onset Headache Mother migraine Diabetes Mother Heart Father Diabetes Sister No Known Problems Brother No Known Problems Brother No Known Problems Brother Cancer Maternal Grandmother Diabetes Maternal Grandfather No Known Problems Paternal Grandmother Diabetes Paternal Grandfather No Known Problems Son Social History Tobacco Use Smoking status: Former Years: 5 Types: Cigarettes Quit date: 01/07/2022 Years since quittin.5 Smokeless tobacco: Never Vaping Use Vaping Use: Former Quit date: 02/05/2022 Substances: Nicotine, THC, CBD, Flavoring Substance Use Topics Alcohol use: Not Currently Comment: Rarely Drug use: Never Review of Systems Constitutional: Negative for fever. HENT: Positive for congestion and sore throat. Negative for ear pain and nosebleeds. Respiratory: Positive for cough and sputum production. Negative for shortness of breath and wheezing. Musculoskeletal: Negative for neck pain. Objective Blood pressure 122/78, pulse 94, temperature 36.9 ?C (98.4 ?F), temperature source Tympanic, resp. rate 16, weight 99.5 kg (219 lb 6.4 oz), last menstrual period 03/03/2023, SpO2 96 %, not currently . Physical Exam Constitutional: General: She is not in acute distress. Appearance: She is not toxic-appearing or diaphoretic. HENT: Head: Normocephalic and atraumatic. Nose: Nose normal. Mouth/Throat: Pharynx: Uvula midline. No pharyngeal swelling, oropharyngeal exudate, posterior oropharyngeal erythema or uvula swelling. Eyes: General: Lids are normal. No scleral icterus. Right eye: No discharge. Left eye: No discharge. Conjunctiva/sclera: Conjunctivae normal. Pupils: Pupils are equal, round, and reactive to light. Neck: Trachea: Trachea normal. Cardiovascular: Rate and Rhythm: Normal rate and regular rhythm. Heart sounds: Normal heart sounds. Pulmonary: Effort: Pulmonary effort is normal. Breath sounds: Wheezing (bilat) and rhonchi (bilat) present. No decreased breath sounds or rales. Musculoskeletal: Cervical back: Normal range of motion and neck supple. Lymphadenopathy: Cervical: No cervical adenopathy. Right cervical: No superficial cervical adenopathy. Left cervical: No superficial cervical adenopathy. Skin: Findings: No rash. Neurological: Mental Status: She is alert and oriented to person, place, and time. ASSESSMENT/PLAN: 1. URI, acute - ICD9: 465.9, ICD10: J06.9 (primary diagnosis) - Discussed viral etiology and rationale for treatment. - Symptomatic treatment with prn analgesia - Supportive care with fluids and rest - Follow up in 3-5 days if symptoms persist or sooner if worsening of symptoms -declines covid testing - ALBUTEROL SULFATE HFA 90 MCG/ACTUATION AEROSOL INHALER 2. Wheezing - ICD9: 786.07, ICD10: R06.2 Xray negative. - XR CHEST 2V FRONTAL/LAT IMPRESSION: No acute radiographic abnormality. Dictated by : KASIA RASHID MD - ALBUTEROL SULFATE HFA 90 MCG/ACTUATION AEROSOL INHALER Laura Cavanaugh APRN.ALL ROUND LOGGER [facility] 07-21-2023 History of Presen t illness Narrative Subjective HPI HPI Luis Eduardo Coats is a 23 year old female who presents today for CC of cough, st sob, h/a. This started 2 days ago. Has tried otc medication for relief. Symptoms are worsened by nothing. Risk factors sick exposures at work. 20 weeks . Reports needing inhaler as a child but not as adult. Quit smoking for . .Patient presents with: Cough: Cough, ST, congestion and MORAN x 2 days PAST MEDICAL HISTORY Diagnosis Date Depression Obese 03/09/2015 depression PAST SURGICAL HISTORY Procedure Laterality Date DELIVERY ONLY 04/24/2022 LTCS PAST SURGICAL HISTORY OF 10/19/[facility] AD[facility]OIDECTOMY <AGE 12 10/19/2003 Dr. Castro ALLERGIES Morphine MEDICATIONS aspirin 81 mg chewable tablet Take 81 mg by mouth once daily. Taking 2 daily ondansetron orally disintegrating (ZOFRAN ODT) 4 mg disintegrating tablet Take 1 tablet by mouth every 8 hours as needed for nausea/vomiting. albuterol HFA (PROVENTIL HFA, VENTOLIN HFA) 90 mcg/actuation inhaler Inhale 2 Puffs as instructed every 4 hours as needed for wheezing/shortness of breath. Inhalational Spacing Device 1 Device one time only for 1 dose. doxylamine-pyridoxine, vit B6, (DICLEGIS) 10-10 mg TbEC Take 2 tabs at night. If symptoms persist after 2 days add one tab in the morning. If symptoms still persist after 4 days add a tab mid-day (Patient not taking: Reported on 07/21/2023) vits62/FA/om3/dha/epa ( GUMMY ORAL) Take by mouth. (Patient not taking: Reported on 07/21/2023) FAMILY HISTORY Problem Relation Age of Onset Headache Mother migraine Diabetes Mother Heart Father Diabetes Sister No Known Problems Brother No Known Problems Brother No Known Problems Brother Cancer Maternal Grandmother Diabetes Maternal Grandfather No Known Problems Paternal Grandmother Diabetes Paternal Grandfather No Known Problems Son Social History Tobacco Use Smoking status: Former Years: 5 Types: Cigarettes Quit date: 01/07/2022 Years since quittin.5 Smokeless tobacco: Never Vaping Use Vaping Use: Former Quit date: 02/05/2022 Substances: Nicotine, THC, CBD, Flavoring Substance Use Topics Alcohol use: Not Currently Comment: Rarely Drug use: Never Review of Systems Constitutional: Negative for fever. HENT: Positive for congestion and sore throat. Negative for ear pain and nosebleeds. Respiratory: Positive for cough and sputum production. Negative for shortness of breath and wheezing. Musculoskeletal: Negative for neck pain. Objective Blood pressure 122/78, pulse 94, temperature 36.9 C (98.4 F), temperature source Tympanic, resp. rate 16, weight 99.5 kg (219 lb 6.4 oz), last menstrual period 03/03/2023, SpO2 96 %, not currently . Physical Exam Constitutional: General: She is not in acute distress. Appearance: She is not toxic-appearing or diaphoretic. HENT: Head: Normocephalic and atraumatic. Nose: Nose normal. Mouth/Throat: Pharynx: Uvula midline. No pharyngeal swelling, oropharyngeal exudate, posterior oropharyngeal erythema or uvula swelling. Eyes: General: Lids are normal. No scleral icterus. Right eye: No discharge. Left eye: No discharge. Conjunctiva/sclera: Conjunctivae normal. Pupils: Pupils are equal, round, and reactive to light. Neck: Trachea: Trachea normal. Cardiovascular: Rate and Rhythm: Normal rate and regular rhythm. Heart sounds: Normal heart sounds. Pulmonary: Effort: Pulmonary effort is normal. Breath sounds: Wheezing (bilat) and rhonchi (bilat) present. No decreased breath sounds or rales. Musculoskeletal: Cervical back: Normal range of motion and neck supple. Lymphadenopathy: Cervical: No cervical adenopathy. Right cervical: No superficial cervical adenopathy. Left cervical: No superficial cervical adenopathy. Skin: Findings: No rash. Neurological: Mental Status: She is alert and oriented to person, place, and time. ASSESSMENT/PLAN: 1. URI, acute - ICD9: 465.9, ICD10: J06.9 (primary diagnosis) - Discussed viral etiology and rationale for treatment. - Symptomatic treatment with prn analgesia - Supportive care with fluids and rest - Follow up in 3-5 days if symptoms persist or sooner if worsening of symptoms -declines covid testing - ALBUTEROL SULFATE HFA 90 MCG/ACTUATION AEROSOL INHALER 2. Wheezing - ICD9: 786.07, ICD10: R06.2 Xray negative. - XR CHEST 2V FRONTAL/LAT IMPRESSION: No acute radiographic abnormality. Dictated by : KASIA RASHID MD - ALBUTEROL SULFATE HFA 90 MCG/ACTUATION AEROSOL INHALER Laura Cavanaugh APRN.ALL ROUND LOGGER documented in this encounter [facility] 07-08-2023 Miscellaneous Notes Formattin g of this note might be different from the original. DM-Pt doing well. Denies vaginal Bleeding, Leaking fluid, or regular Cramping. Pt reports diclegis is helping with N/V. Is keeping fluids and food down much better. Is feeling some movement. Physical Exam: Gen: female in no apparent distress Abd: soft, Gravid. Non tender to palpation. See flow sheet A/P: @ 18.1 weeks 1) diclegis reordered 2) Anatomy us scheduled 3) BMP added today to new OB labs. Pt wants to cancel maternity 21 4) reviewed small sips of fluids during day and bland diet. 5) Will start ASA Germain Del Valle MD documented in this encounter [facility] 07-08-2023 Instructions Louise Thao Ma 07/08/2023 9:09 AM EDT SEQUENTIAL SCREENINGS The [facility] offers sequential screenings for women who are interested in screenings for chromosomal abnormalities and certain defects during a . The sequential screen combines ultrasound and blood tests to determine the risk of chromosomal abnormalities, including Down's Syndrome (Trisomy 21) and Trisomy 18, as well as open neural tube defects including spina bifida. Ultrasound examination is performed between 11 weeks and 13 weeks gestational age. Blood tests are drawn after the ultrasound and again later in the between 15 and 21 weeks gestational age. Please let your physician know if you are interested in this testing. It will require an appointment with our emergency response technician. This is not an ultrasound performed by a physician in our office during a routine visit. SIGNS AND SYMPTOMS OF LABOR 1. Contractions every 10 minutes or more often 2. Clear, pink, or brownish fluid (water) leaking from vagina 3. Feeling that baby is pushing down, pressure 4. Low, dull backache 5. Cramps that feel like a period 6. Cramps with or without diarrhea If you notice any of the above symptoms, contact our office at [phone] and ask to speak with a nurse. After hours, you can call doctors registry at [phone] OR call [facility] at [phone] and ask to have the doctor precision agriculture technician paged. If you consider this an emergency, dial 06-19-7 or go to your nearest emergency department. NEED HELP? Are you dealing with a violent or abusive relationship? Are you a victim of rape or sexual assult? Call [facility] ([place]) 24 hour Crisis Hotline: 972.277.3692 or 875-467-1204. MANUAL Your Guide to a Healthy manual is now on-line. Visit [email or web address] to download your free copy documented in this encounter [facility] 06-30-2023 Miscellaneous Notes Formattin g of this note might be different from the original. I called patient to remind her that [id number] was ordered and she did not have it done at her last visit. Patient states she is planning to have it at her next visit 07/08 documented in this encounter [facility] 06-03-2023 Note HNO ID: [id number] Author: Loan Ren Ma Service: ? Author Type: ? Type: Progress Notes Filed: 06/03/2023 11:00 AM Note Text: Patient here for First Trimester Screening. See ultrasound report for details. Options for genetic screening and diagnosis discussed with the patient. Patient opts for first trimester screening and the sequential screening protocol. Limitations of screening tests discussed with the patient. Arnav Feliciano MD [facility] 06-03-2023 Miscellaneous Notes Formattin g of this note might be different from the original. RR- VB No. LOF No. CTXS No. Movement: present. Other c/o: No. Medication list reviewed. Physical Exam See Flow Sheet Abd: soft, nontender, gravid Ext: edema: no A/P 13w1d Estimated Date of Delivery: 12/08/23 mild hyperemesis, n/v today despite zofran. Add diclegis NT today. D/w her aneuploidy screening and desires NIPT F/u in 2 weeks or prn Arnav Feliciano M.D. documented in this encounter [facility] 06-03-2023 History of Presen t illness Narrative Patient here for First Trimester Screening. See ultrasound report for details. Options for genetic screening and diagnosis discussed with the patient. Patient opts for first trimester screening and the sequential screening protocol. Limitations of screening tests discussed with the patient. Arnav Feliciano MD documented in this encounter [facility] 06-03-2023 Instructions Loan Ren Ma - 06/03/2023 10:27 AM EDT SEQUENTIAL SCREENINGS The [facility] offers sequential screenings for women who are interested in screenings for chromosomal abnormalities and certain defects during a . The sequential screen combines ultrasound and blood tests to determine the risk of chromosomal abnormalities, including Down's Syndrome (Trisomy 21) and Trisomy 18, as well as open neural tube defects including spina bifida. Ultrasound examination is performed between 11 weeks and 13 weeks gestational age. Blood tests are drawn after the ultrasound and again later in the between 15 and 21 weeks gestational age. Please let your physician know if you are interested in this testing. It will require an appointment with our emergency response technician. This is not an ultrasound performed by a physician in our office during a routine visit. SIGNS AND SYMPTOMS OF LABOR 1. Contractions every 10 minutes or more often 2. Clear, pink, or brownish fluid (water) leaking from vagina 3. Feeling that baby is pushing down, pressure 4. Low, dull backache 5. Cramps that feel like a period 6. Cramps with or without diarrhea If you notice any of the above symptoms, contact our office at [phone] and ask to speak with a nurse. After hours, you can call doctors registry at [phone] OR call [facility] at [phone] and ask to have the doctor precision agriculture technician paged. If you consider this an emergency, dial or go to your nearest emergency department. NEED HELP? Are you dealing with a violent or abusive relationship? Are you a victim of rape or sexual assult? Call [facility] ([place]) 24 hour Crisis Hotline: 845.739.6689 or 114-675-1362. MANUAL Your Guide to a Healthy manual is now on-line. Visit [email or web address] to download your free copy documented in this encounter [facility] 05-05-2023 Miscellaneous Notes Formattin g of this note might be different from the original. risk assessment form submitted 05/05/23 Brandy Cruz RN documented in this encounter [facility] 2023 Note HNO ID: [id number] Author: Nayana Peterson MD Service: ? Author Type: Physician Type: Progress Notes Filed: 2023 2:54 PM Note Text: Lapping Machine Tender offered: Patient declines. INITIAL OB ASSESSMENT OB Provider: Nayana Peterson DO HPI: Luis Eduardo is a 23 year old White here to establish Obstetrical Care. Patient's last menstrual period was 03/03/2023 (exact date). from OB Dating Form. Cycles regular was unplanned but accepted Complaints: nausea without vomiting OB History T1 L1 SAB0 IAB0 Ectopic0 Multiple0 Live Births1 Previous history: Prior : yes x 1 History of 4th degree laceration: No History of shoulder dystocia: No History of Hypertensive disorders including pre-eclampsia, chronic hypertension or gestational hypertension: No History of gestational diabetes: No Patient's Risk Screening for delivery: MEDICAL/PSYCHOSOCIAL HISTORY: History of hemorrhage or bleeding concerns: No Thyroid Disease: No History of chronic hypertension: No History of pre-existing diabetes: No ABO/RH(D) Date Value Ref Range Status 10/16/2021 A POSITIVE Final BMI 38.67 kg/(m2) History of abnormal pap: No Prior treatment for cervical dysplasia: none. History of STDs: None Tobacco use: Yes - quit once found out ! Caffeine use: No Drug use: No Alcohol use: No Multivitamin with Folic acid: Yes Sikhism or heritage: No Would refuse blood transfusion if medically necessary: No Are you currently employed? 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 I don't have enough money to pay my bills: Never Within the past 12 months, have you worried that your food would run out before you had money to buy more: Never In the past 12 months, has lack of reliable transportation kept you from going to medical appointments or work, or from keeping things needed for daily living: Never In the past 12 months, have you had any concerns about having a place to live, or about the condition or quality of your housing: Never Are there any cultural or spiritual needs we should be aware of: No Depression: admits to symptoms of depression. OB Depression and Anxiety Screening- This Encounter (since 05/03/2023) None GENETIC SCREENING: Partner present: No Patient verbalized knowledge of partner family health history: Yes Do you or your partner have any personal or family history of defects not previously discussed: No Do you have history of a complicated by anomaly, genetic condition, or demise: No Marital Status: Committed relationship Partner: Name: Gera Michel Age: 23 PAST MEDICAL HISTORY Diagnosis Date Depression Obese 03/09/2015 depression PAST SURGICAL HISTORY Procedure Laterality Date DELIVERY ONLY 04/24/2022 LT PAST SURGICAL HISTORY OF 10/19/2003 [facility] Castro Current Outpatient Medications Medication Sig Dispense Refill vits62/FA/om3/dha/epa ( GUMMY ORAL) Take by mouth. pantoprazole DR (PROTONIX) 20 mg tablet Take 1 tablet by mouth once daily. (Patient not taking: Reported on 04/13/2023) 30 tablet 2 sertraline (ZOLOFT) 50 mg tablet Take 1 tablet by mouth once daily. (Patient not taking: Reported on 04/13/2023) 30 tablet 5 No current facility-administered medications for this visit. Allergies As of Date: 2023 Allergen Noted Reaction MORPHINE 09/09/2021 Swelling Fully Assessed 2023 Does patient have penicillin allergy: No REVIEW OF SYSTEMS: GENERAL: Negative for: Fever or Chills HEENT: Negative for: Headache, Impaired Vision, Ringing in Ears, Nosebleeds NECK: Negative for: Swelling, Pain, Stiffness RESPIRATORY: Negative for: Cough, Shortness of breath, Wheezing GASTROINTESTINAL: Negative for: Heartburn, Constipation, Diarrhea, Blood in stool, Vomiting MUSCULOSKELETAL: Negative for: Muscle or joint pain, stiffness, Joint swelling NEUROLOGIC/PSYCHIATRIC: Negative for: Weakness, Paralysis, Numbness, Tingling, Tremor, Anxiety, Depression, Memory loss SKIN: Negative for: Rash, Itching GENITOURINARY: Negative for: vaginal itching, vaginal discharge, hematuria or dysuria PHYSICAL EXAM: BP 120/78 Ht 5' 5 (1.65m) Wt 232 lb 6.4 oz (105.4kg) LMP 03/03/2023 BMI 38.67 kg/(m2). GENERAL: pleasant in no apparent distress DERMATOLOGY: Normal, without lesions, non-icteric, and non-hirsute NECK: full range of motion CHEST: Normal inspiratory effort BREAST: soft, non-tender, symmetric, no dominant mass, normal nipple-areolar complex (more content not included)... [facility] 2023 History of Presen t illness Narrative Images from the original note were not included. Lapping Machine Tender offered: Patient declines. INITIAL OB ASSESSMENT OB Provider: Nayana Peterson DO HPI: Luis Eduardo is a 23 year old White here to establish Obstetrical Care. Patient's last menstrual period was 03/03/2023 (exact date). from OB Dating Form. Cycles regular was unplanned but accepted Complaints: nausea without vomiting OB History T1 L1 SAB0 IAB0 Ectopic0 Multiple0 Live Births1 Previous history: Prior : yes x 1 History of 4th degree laceration: No History of shoulder dystocia: No History of Hypertensive disorders including pre-eclampsia, chronic hypertension or gestational hypertension: No History of gestational diabetes: No Patient's Risk Screening for delivery: MEDICAL/PSYCHOSOCIAL HISTORY: History of hemorrhage or bleeding concerns: No Thyroid Disease: No History of chronic hypertension: No History of pre-existing diabetes: No ABO/RH(D) Date Value Ref Range Status 10/16/2021 A POSITIVE Final BMI 38.67 kg/(m^2) History of abnormal pap: No Prior treatment for cervical dysplasia: none. History of STDs: None Tobacco use: Yes - quit once found out ! Caffeine use: No Drug use: No Alcohol use: No Multivitamin with Folic acid: Yes Sikhism or heritage: No Would refuse blood transfusion if medically necessary: No Are you currently employed? 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 I don't have enough money to pay my bills: Never Within the past 12 months, have you worried that your food would run out before you had money to buy more: Never In the past 12 months, has lack of reliable transportation kept you from going to medical appointments or work, or from keeping things needed for daily living: Never In the past 12 months, have you had any concerns about having a place to live, or about the condition or quality of your housing: Never Are there any cultural or spiritual needs we should be aware of: No Depression: admits to symptoms of depression. OB Depression and Anxiety Screening- This Encounter (since 05/03/2023) None GENETIC SCREENING: Partner present: No Patient verbalized knowledge of partner family health history: Yes Do you or your partner have any personal or family history of defects not previously discussed: No Do you have history of a complicated by anomaly, genetic condition, or demise: No Marital Status: Committed relationship Partner: Name: Gera Michel Age: 23 PAST MEDICAL HISTORY Diagnosis Date Depression Obese 03/09/2015 depression PAST SURGICAL HISTORY Procedure Laterality Date DELIVERY ONLY 04/24/2022 LTCS PAST SURGICAL HISTORY OF 10/19/2003 Left eye surgery following dog bite-[facility]. [facility] TONSILLECTOMY & ADENOIDECTOMY <AGE 12 10/19/2003 Dr. Castro Current Outpatient Medications Medication Sig Dispense Refill vits62/FA/om3/dha/epa ( GUMMY ORAL) Take by mouth. pantoprazole DR (PROTONIX) 20 mg tablet Take 1 tablet by mouth once daily. (Patient not taking: Reported on 04/13/2023) 30 tablet 2 sertraline (ZOLOFT) 50 mg tablet Take 1 tablet by mouth once daily. (Patient not taking: Reported on 04/13/2023) 30 tablet 5 No current facility-administered medications for this visit. Allergies As of Date: 2023 Allergen Noted Reaction MORPHINE 09/09/2021 Swelling Fully Assessed 2023 Does patient have penicillin allergy: No REVIEW OF SYSTEMS: GENERAL: Negative for: Fever or Chills HEENT: Negative for: Headache, Impaired Vision, Ringing in Ears, Nosebleeds NECK: Negative for: Swelling, Pain, Stiffness RESPIRATORY: Negative for: Cough, Shortness of breath, Wheezing GASTROINTESTINAL: Negative for: Heartburn, Constipation, Diarrhea, Blood in stool, Vomiting MUSCULOSKELETAL: Negative for: Muscle or joint pain, stiffness, Joint swelling NEUROLOGIC/PSYCHIATRIC: Negative for: Weakness, Paralysis, Numbness, Tingling, Tremor, Anxiety, Depression, Memory loss SKIN: Negative for: Rash, Itching GENITOURINARY: Negative for: vaginal itching, vaginal discharge, hematuria or dysuria PHYSICAL EXAM: BP 120/78 Ht 5' 5 (1.65m) Wt 232 lb 6.4 oz (105.4kg) LMP 03/03/2023 BMI 38.67 kg/(m^2). GENERAL: pleasant in no apparent distress DERMATOLOGY: Normal, without lesions, non-icteric, and non-hirsute NECK: full range of motion CHEST: Normal inspiratory effort BREAST: soft, non-tender, symmetric, no dominant mass, normal nipple-areolar complex, no lymphadenopathy, and no nipple discharge ABDOMEN: soft, non-tender, and no masses NEURO: exam grossly non-focal PELVIS: External genitalia normal without lesions. Perineal body intact. No vaginal or cervical lesions. Cervix closed. Uterus 8 week size. No adnexal masses or tenderness. Clinical Pelvimetry: Pelvimetry clinically assessed as adequate Limited OB ultrasound exam: single intrauterine , positive cardiac activity, and crown-rump length 8w1d OB Risk Screening: Completed, no positive findings documented. SBIRT Luis Eduardo Coats was given the 4P's screening tool. Luis Eduardo answered as follows: OB Opioid Screening - Last Recorded (since 08/07/2022) Did any of your parents have a problem with alcohol or other drug use? Yes Father-ETOH, Drugs Does your partner have a problem with alcohol or other drug use? No In the past, have you had difficulties in your life because of alcohol or other drugs, including prescription medications? No In the past month have you drunk any alcohol or used other drugs? No Are you taking medication for pain during the either prescribed or not? No Based on the screen and further questions, she is considered at Low risk due to:No past or current use. Positive reinforcement of current behavior. Plan to rescreen early third trimester. Nayana Peterson MD ASSESSMENT: 23 year old at 8w6d wks gestational age PLAN: 1) Patient oriented to practice. Patient given new OB orientation folder. Discussed nutrition, folic acid supplementation, dietary guidelines, exercise, smoking, alcohol, caffeine, and drug use. Discussed gestational weight gain guidelines. Discussed routine OB labs including STD/HIV. Discussed how to access Your guide to a health and the Facility Examiner. Discussed aneuploidy and carrier screening. Regarding aneuploidy screening, nuchal translucency/first trimester early anatomy ultrasound and NIPT were discussed. Regarding carrier screening, the myriad screen was discussed. The risks/benefits and limitations of NIPT/aneuploidy screening were reviewed including the potential for false negative and false positive results. We discussed the availability of professional-society guided carrier screening and reviewed the conditions screened and limitations of screening. The availability of genetic counseling was reviewed. Information on aneuploidy/carrier screening was provided. The patient chooses: Aneuploidy screening: chooses to proceed with First trimester early anatomy ultrasound (12-13w6d), NIPT (10 weeks), and If concerns with insurance coverage, patient to call back for sequential order. and Carrier screening: Declines Follow up in 4 weeks or sooner prn. Nayana Peterson DO documented in this encounter [facility] 2023 Instructions Diana Subramanian MA - 2023 11:30 AM EDT Please select the following link to access the [facility] Your Guide to a Healthy . [email or web address] documented in this encounter [facility] 04-13-2023 Note HNO ID: [id number] Author: Nicole Roberto RN Service: ? Author Type: ? Type: Progress Notes Filed: 04/13/2023 4:27 PM Note Text: # 1 - Date: 04/24/22, Sex: Male, Weight: 6 lb 13.2 oz (3.096 kg), GA: 39w3d, Delivery: , Low Transverse, Apgar1: None, Apgar5: None, Living: Living, Comments: scheduled c/s for breech, EBL 800mL # 2 - Date: None, Sex: None, Weight: None, GA: None, Delivery: None, Apgar1: None, Apgar5: None, Living: None, Comments: None [facility] 04-13-2023 Miscellaneous Notes Formattin g of this note might be different from the original. Agree if cramping worsens or if she experiences bleeding recommend serial HCG quants Patient had telephone Pre new OB today. She is 2 para 1. Her new OB appointment is on May [address] Peterson. She has been complaining of pelvic pain for the last week. She states it is occurring less this week than it did last week. She rates the cramping a 5-6 on the pain scale. She states it happens 1-2 times a day the last few days. She denies any bleeding. I have reassured her. Patient is to call/come in if she notices the pain gets worse, the development of bleeding or as needed problems. Please advise if there is any further advice you wish to give. Call only if further advice documented in this encounter [facility] 04-13-2023 History of Presen t illness Narrative # 1 - Date: 04/24/22, Sex: Male, Weight: 6 lb 13.2 oz (3.096 kg), GA: 39w3d, Delivery: , Low Transverse, Apgar1: None, Apgar5: None, Living: Living, Comments: scheduled c/s for breech, EBL 800mL # 2 - Date: None, Sex: None, Weight: None, GA: None, Delivery: None, Apgar1: None, Apgar5: None, Living: None, Comments: None documented in this encounter [facility] 04-13-2023 Miscellaneous Notes Formattin g of this note might be different from the original. DISTANCE HEALTH VISIT This Team Access Model visit is a phone encounter. It required patient-provider interaction for the medical decision making as documented below. Father of the baby is involved. He is the father of her other child. Patient delivered April 24, 2022. This is a surprise but patient and partner are happy about it. Patient has a history of a for breech presentation. EMMIs on and ordered and patient is asked to watch them prior to her new OB appoint with Dr. Peterson on May 04.Pt has a history of depression diagnosed in 2016 and most recently treated by Kar Rodriguez CNP.. She has been off medication for a little over a month and feels she is doing well off medication. She states that she did have depression. . Discussed increased risks of depression during and and importance of reporting the development or worsening of symptoms should they occur. Pt denies ever having any suicidal thoughts or tendencies or thoughts of hurting others. Patient's previous child born with a right clubfoot. Patient desires aneuploidy screening with sequential testing. Declines NIPT. Patient declines genetic carrier screening testing.Nicole Roberto RN documented in this encounter [facility] 04-07-2023 Miscellaneous Notes Formattin g of this note might be different from the original. Pt returned call and was scheduled for PNOB. Sarah Choudhary LPN Left message for patient to return phone call. Patient has an appointment with Dr Peterson for NOB appointment. Please schedule PNOB appointment. documented in this encounter [facility] 02-02-2023 Note HNO ID: [id number] Author: Kar Rodriguez APRN.BIBI Service: ? Author Type: Nurse Practitioner Type: Progress Notes Filed: 02/02/2023 3:53 PM Note Text: SUBJECTIVE Luis Eduardo Coats is a 22 year old female here today to establish care. Chief Complaint Patient presents with: Establish Care HPI Luis Eduardo Coats is a 22 year old female who presents today to establish care. Prior PCP was with our pediatrics department, saw Dr. Man. Also sees wood boatbuilder, Dr. Mirza. Medical history of depression, obesity and ADHD. Some issues with stomach pains. Wondering about her gallbladder. No constipation, no nausea or vomiting. No blood in bowel movements. Appetite is good. Pain is behind the belly button. No lumps or bumps. Too much food makes it worse. Aggravated too when hungry. Some times kind of acidic feeling. Some heart burn at times. Still has appendix. Has had a missed menses. Negative test last week. Nervous about this. Stopped her OCPs. Has always been pretty regular. No recent home urine test. LMP was maybe mid-december. Started Zoloft today from wood boatbuilder for mood. Planning to set up counseling. Her medications were reviewed today and her list is now up to date. Medications Current Outpatient Medications Medication Sig sertraline (ZOLOFT) 50 mg tablet Take 1 tablet by mouth once daily. pantoprazole DR (PROTONIX) 20 mg tablet Take 1 tablet by mouth once daily. Breast Pump Use as directed No current facility-administered medications for this visit. ALLERGIES Allergen Reactions Morphine Swelling ACTIVE PROBLEM LIST Obesity, Class III, BMI >= 40 - 02/02/2023 Abnormal Glucose in , Antepartum - 02/05/2022 Comment: 02/26/22-3hr GTT normal. 1 elevated level. Tamra Rosario APRN.CNM 02/05/22-Failed 1hr GCT, 3hr GTT ordered. Tamra Rosario APRN.CNM Club Foot, , Affecting Care of Mother, Antepartum, Fetus 1 - 12/11/2021 Comment: 12/11/21- club foot (right side) seen on anatomy US. Patient was contacted by [facility] and plan of care made. Repeat US at 32 weeks gestation. Karey Armenta APRN.ADYM Supervision of High Risk in Second Trimester - 10/16/2021 Obesity During - 09/09/2021 Comment: 09/09/2021 Patient is obese. We will plan on early GCT.TKRN Depression - 08/03/2017 Obese - 03/09/2015 Adhd (Attention Deficit Hyperactivity Disorder) Social History Tobacco Use Smoking status: Every Day Years: 5.00 Types: Cigarettes Last attempt to quit: 01/07/2021 Years since quittin.0 Smokeless tobacco: Never Vaping Use Vaping Use: Former Quit date: 08/27/2021 Substances: Nicotine, THC, CBD Substance Use Topics Alcohol use: Never Drug use: Never Review of Systems Respiratory: Negative. Cardiovascular: Negative. Gastrointestinal: Positive for abdominal pain. Negative for anal bleeding, blood in stool, constipation, diarrhea, nausea, rectal pain and vomiting. OBJECTIVE BP 124/66 Pulse 71 Ht 5' 5 (1.65m) Wt 242 lb (109.8kg) SpO2 99% LMP 01/11/2023 BMI 40.27 kg/(m2). Physical Exam Vitals and nursing note reviewed. Constitutional: General: She is awake. She is not in acute distress. Appearance: Normal appearance. She is well-developed and well-groomed. She is obese. She is not ill-appearing, toxic-appearing or diaphoretic. HENT: Head: Normocephalic. Right Ear: External ear normal. Left Ear: External ear normal. Nose: Nose normal. Eyes: General: Vision grossly intact. Conjunctiva/sclera: Conjunctivae normal. Pupils: Pupils are equal, round, and reactive to light. Neck: Vascular: No JVD. Trachea: Trachea normal. Cardiovascular: Rate and Rhythm: Normal rate and regular rhythm. Pulses: Normal pulses. Heart sounds: Normal heart sounds. No murmur heard. Pulmonary: Effort: Pulmonary effort is normal. No accessory muscle usage, prolonged expiration or respiratory distress. Breath sounds: Normal breath sounds. Abdominal: General: Bowel sounds are normal. There is no distension. There are no signs of injury. Palpations: Abdomen is soft. There is no shifting dullness, fluid wave, hepatomegaly, splenomegaly, mass or pulsatile mass. Tenderness: There is no abdominal tenderness. There is no guarding or rebound. Negative signs include King's sign, Rovsing's sign and McBurney's sign. Musculoskeletal: Cervical back: Neck supple. Skin: General: Skin is warm and dry. Capillary Refill: Capillary refill takes less than 2 seconds. Neurological: General: No focal deficit present. Mental Status: She is alert and oriented to person, place, and time. Mental status is at baseline. Psychiatric: Attention and Perception: Attention and perception normal. Mood and Affect: Mood and affect normal. Speech: Speech normal. Behavior: Behavior normal. Behavior is cooperative. Thought Content: Thought content normal. Cognition and Memory: Cognition and memory normal. (more content not included)... [facility] 01-26-2023 Note HNO ID: [id number] Author: Germain Mirza MD Service: ? Author Type: Physician Type: Progress Notes Filed: 01/26/2023 4:58 PM Note Text: Luis Eduardo Coats is a 22 year old female who presents for concerns regarding depression. Patient delivered her child approximately 9 months ago and feels like her depression is getting worse. Patient states that after her son was born she felt that she was on a high however now feels like that high has come down and she is sad all the time. Patient does not want her son to see her sad. She states she is crying all the time. She states that she does not feel like people see her they only see her for her son. She does not have any plan to harm herself but she does states she has feelings that she thinks that he might be better off without her. She states then she thinks that she does not ever want him to think that he is not good enough for her. She enjoys taking care of him and she is bonding well with him. She states that she does have a history of depression and she has taken medication briefly before. She states that previously she she was going to take medication during but decided not to. She denies any history of any psychiatric diagnoses previously other than depression. She states that there is a family history of depression. She states that she does have a good support system including the father of the baby. She states she has not talked anybody about how she is feeling at this time. She would like to talk to a counselor and is asking for names and numbers. Patient offers no other concerns at this time today. Patient also states her menses is late and she would like to take a test. No plans on harming self or others. 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 Hubbard [facility] TONSILLECTOMY AND ADENOIDECTOMY Dr. Castro FAMILY HISTORY Problem Relation Age of Onset Headache Mother migraine Diabetes Mother Heart Father Diabetes Sister No Known Problems Brother No Known Problems Brother No Known Problems Brother Cancer Maternal Grandmother Diabetes Maternal Grandfather No Known Problems Paternal Grandmother Diabetes Paternal Grandfather Social History Tobacco Use Smoking status: Former Years: 5.00 Types: Cigarettes Quit date: 01/07/2021 Years since quittin.0 Smokeless tobacco: Never Vaping Use Vaping Use: Former Quit date: 08/27/2021 Substances: Nicotine, THC, CBD Substance Use Topics Alcohol use: Never Drug use: Never Current Outpatient Medications Medication Sig Norethin Kenny-Eth Estrad-FE (,) 1 mg-20 mcg (21)/75 mg (7) per tablet Take 1 tablet by mouth once daily. Breast Pump Use as directed omeprazole (PRILOSEC) 40 mg capsule Take 1 capsule by mouth once daily. (Patient not taking: Reported on 05/05/2022 ) multivitamin (CLASSIC ) 28 mg iron- 800 mcg tab(s) Take 1 tablet by mouth once daily. (Patient not taking: Reported on 05/05/2022 ) No current facility-administered medications for this visit. Allergies As of Date: 01/26/2023 Allergen Noted Reaction MORPHINE 09/09/2021 Swelling Fully Assessed 06/09/2022 REVIEW OF SYSTEMS. Expanded ROS: GENERAL: losing interest Allergies and current medication updated:Yes EXAM: BP 100/60 Wt 238 lb 1.6 oz (108.0kg) LMP 07/22/2021 GENERAL: pleasant, female emotional today HEENT: Normocephalic and atraumatic NECK: full range of motion DERMATOLOGY: Normal and without lesions NEURO: alert and oriented x3,exam grossly non-focal ASSESSMENT AND PLAN: Encounter Diagnosis ICD-10-CM 1. Missed menses N92.6 HCG QUAL UR B/O 2. Depression, unspecified depression type F32.A 3. Discussed with the patient counseling as well as medication therapy. She states she tried Zoloft for a few weeks previously and did not have any unwanted side effects and would be willing to try that again. She states it was probably 5 years ago that she tried that. Patient after our discussion today will also open up to her mother or another close family member. Numbers for 3 different counseling centers in the area were given to her and she will set up an appointment. Zoloft 50 mg was started today. I will see the patient back in the office in 4 weeks she knows to call the office or go to the nearest hospital if she has any thoughts of nirmal (more content not included)... [facility] 01-26-2023 History of Presen t illness Narrative Luis Eduardo Coats is a 22 year old female who presents for concerns regarding depression. Patient delivered her child approximately 9 months ago and feels like her depression is getting worse. Patient states that after her son was born she felt that she was on a high however now feels like that high has come down and she is sad all the time. Patient does not want her son to see her sad. She states she is crying all the time. She states that she does not feel like people see her they only see her for her son. She does not have any plan to harm herself but she does states she has feelings that she thinks that he might be better off without her. She states then she thinks that she does not ever want him to think that he is not good enough for her. She enjoys taking care of him and she is bonding well with him. She states that she does have a history of depression and she has taken medication briefly before. She states that previously she she was going to take medication during but decided not to. She denies any history of any psychiatric diagnoses previously other than depression. She states that there is a family history of depression. She states that she does have a good support system including the father of the baby. She states she has not talked anybody about how she is feeling at this time. She would like to talk to a counselor and is asking for names and numbers. Patient offers no other concerns at this time today. Patient also states her menses is late and she would like to take a test. No plans on harming self or others. 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 ADENOIDECTOMY <AGE 12 10/19/2003 Dr. Castro FAMILY HISTORY Problem Relation Age of Onset Headache Mother migraine Diabetes Mother Heart Father Diabetes Sister No Known Problems Brother No Known Problems Brother No Known Problems Brother Cancer Maternal Grandmother Diabetes Maternal Grandfather No Known Problems Paternal Grandmother Diabetes Paternal Grandfather Social History Tobacco Use Smoking status: Former Years: 5.00 Types: Cigarettes Quit date: 01/07/2021 Years since quittin.0 Smokeless tobacco: Never Vaping Use Vaping Use: Former Quit date: 08/27/2021 Substances: Nicotine, THC, CBD Substance Use Topics Alcohol use: Never Drug use: Never Current Outpatient Medications Medication Sig Norethin Kenny-Eth Estrad-FE (11/07, ,) 1 mg-20 mcg (21)/75 mg (7) per tablet Take 1 tablet by mouth once daily. Breast Pump Use as directed omeprazole (PRILOSEC) 40 mg capsule Take 1 capsule by mouth once daily. (Patient not taking: Reported on 05/05/2022 ) multivitamin (CLASSIC ) 28 mg iron- 800 mcg tab(s) Take 1 tablet by mouth once daily. (Patient not taking: Reported on 05/05/2022 ) No current facility-administered medications for this visit. Allergies As of Date: 01/26/2023 Allergen Noted Reaction MORPHINE 09/09/2021 Swelling Fully Assessed 06/09/2022 REVIEW OF SYSTEMS. Expanded ROS: GENERAL: losing interest Allergies and current medication updated:Yes EXAM: BP 100/60 Wt 238 lb 1.6 oz (108.0kg) LMP 07/22/2021 GENERAL: pleasant, female emotional today HEENT: Normocephalic and atraumatic NECK: full range of motion DERMATOLOGY: Normal and without lesions NEURO: alert and oriented x3,exam grossly non-focal ASSESSMENT AND PLAN: Encounter Diagnosis ICD-10-CM 1. Missed menses N92.6 HCG QUAL UR B/O 2. Depression, unspecified depression type F32.A 3. Discussed with the patient counseling as well as medication therapy. She states she tried Zoloft for a few weeks previously and did not have any unwanted side effects and would be willing to try that again. She states it was probably 5 years ago that she tried that. Patient after our discussion today will also open up to her mother or another close family member. Numbers for 3 different counseling centers in the area were given to her and she will set up an appointment. Zoloft 50 mg was started today. I will see the patient back in the office in 4 weeks she knows to call the office or go to the nearest hospital if she has any thoughts of harming self or harming anybody else. We discussed meditation as well as exercise. We discussed finding time for herself whether its 5 to 15 minutes a day. We discussed getting outside to go for a walk. Patient was agreeable to start these things. Patient states she does not have any increased stressors right now in her life that would be aggravating her symptoms. Reassurance was given to the patient today that she could recognize the symptoms. All questions were answered today to the best my ability. 4. Urine - neg Medical Decision Making: Problems: Moderate: 1+ chronic illnesses with change Data: Unique test(s) ordered: 1 Risk: Moderate: Drug management Medical Decision Making Level: 4 - Moderate Germain Del Valle MD documented in this encounter [facility] 06-20-2022 Miscellaneous Notes Formattin g of this note might be different from the original. Form completed and signed by TOMMY. Patient notified and will pick it up. Form to front office spec. Wendy Torres RN Received return to work form from [facility] that patient had dropped off with contact number [phone]. I called patient and she wants this filled and to go back to work [employer]. She has an immunization record attached. Form to Dr Peterson for signature. documented in this encounter [facility] 06-09-2022 History of Presen t illness Narrative Lapping Machine Tender offered: Patient declines. VISIT Luis Eduardo Coats is a 22 year old year old here for visit. Delivery Summary: c/s 04/24/2022 ROS/ Recovery: Feeding: Bottle feeding problems: only breastfed for 2 days Menses since delivery: light flow Menstrual pattern prior to : Regular periods [employer] since delivery: Resumed Depression: denies symptoms of depression. OB Depression and Anxiety Screening- This Encounter (since 06/08/2022) Over the past 2 weeks have you felt down, depressed, or hopeless? Negative Over the past two weeks, have you felt little interest or pleasure in doing things? Negative Feeling nervous, anxious or on edge 0-Not at all Not being able to stop or control worrying 0-Not al all Anxiety Pre-Screening Total (If >/= 3 additional questions will be reviewed) 0 Emotional support: Yes Bowel symptoms: Negative for abdominal discomfort, blood in stools or black stools and change in bowel habits Abdomen: She reports no incisional redness, tenderness, erythema Bladder symptoms: No dysuria, gross hematuria, urinary frequency, urinary urgency, or incontinence Other issues: None Last Pap: 2020 normal HPV: N/A PAST MEDICAL HISTORY Diagnosis Date Depression NEGATIVE HISTORY OF 08/06/2011 Color Blindness Obese 03/09/2015 PAST SURGICAL HISTORY Procedure Laterality Date DELIVERY ONLY 04/24/2022 LTCS PAST SURGICAL HISTORY OF 10/19/2003 Left eye surgery following dog bite-[facility] TONSILLECTOMY & ADENOIDECTOMY <AGE 12 10/19/2003 Dr. Castro FAMILY HISTORY Problem Relation Age of Onset Headache Mother migraine Diabetes Mother Heart Father Diabetes Sister No Known Problems Brother No Known Problems Brother No Known Problems Brother Cancer Maternal Grandmother Diabetes Maternal Grandfather No Known Problems Paternal Grandmother Diabetes Paternal Grandfather Social History Tobacco Use Smoking status: Former Years: 5.00 Types: Cigarettes Quit date: 01/07/2021 Years since quittin.4 Smokeless tobacco: Never Vaping Use Vaping Use: Former Quit date: 08/27/2021 Substances: Nicotine, THC, CBD Substance Use Topics Alcohol use: Never Drug use: Never PHYSICAL EXAMINATION: BP 100/60 Wt 221 lb 6.4 oz (100.4kg) LMP 07/22/2021 GENERAL: pleasant, female in no apparent distress HEENT: Normocephalic, atraumatic, mucus membranes moist, and no lesions NECK: Supple, full range of motion, no adenopathy, and thyroid normal DERMATOLOGY: Normal, without lesions, non-icteric, and non-hirsute BREAST: soft, non-tender, symmetric, no dominant mass, normal nipple-areolar complex, no lymphadenopathy, and no nipple discharge CHEST: Normal inspiratory effort ABDOMEN: soft, non-tender, and no masses. INCISION: No incisional redness, swelling, or drainage PELVIC: external genitalia normal, normal Bartholin's glands, urethra, Cheraw's glands, no vulvar lesions, no cervical lesions, good vaginal support, physiologic discharge present, normal appearing perineal body and perianal region BIMANUAL: uterus normal size, shape and consistency, no adnexal masses, and non-tender NEURO: exam grossly non-focal EXTREMITIES: normal ASSESSMENT AND PLAN: 22 year old status post CS with normal course. Contraception plan: Oral contraceptives Follow up: RTC 1 month for control follow up. Nayana Peterson DO documented in this encounter [facility] 05-05-2022 History of Presen t illness Narrative EARLY VISIT Luis Eduardo Coats is a 22 year old here for 1 week visit. Delivery Summary: c/s 04/24/2022 ROS: General: Denies any fever or chills Hypertension Screening: Headache? No. Visual Changes? No Epigastric Pain? No Increased Swelling? No Taking any BP medications at home? No If applicable, monitoring BP at home? (If Yes, include results) NA Mood: normal Depression: denies, admits to symptoms of depression. OB Depression and Anxiety Screening- This Encounter (since 2022) Over the past 2 weeks have you felt down, depressed, or hopeless? Positive - Further Testing Indicated Over the past two weeks, have you felt little interest or pleasure in doing things? Negative I have been able to laugh and see the funny side of things. 0 I have looked forward with enjoyment to things. 0 I have blamed myself unnecessarily when things went wrong. 2 I have been anxious or worried for no good reason. 2 I have felt scared or panicky for no good reason. 2 Things have been getting on top of me. 0 I have been so unhappy that I have had difficulty sleeping. 0 I have felt sad or miserable. 1 I have been so unhappy that I have been crying. 0 The thought of harming myself has occurred to me. 0 [place] Depression Scale Total 7 Feeling nervous, anxious or on edge 0-Not at all Not being able to stop or control worrying 0-Not al all Anxiety Pre-Screening Total (If >/= 3 additional questions will be reviewed) 0 Feeding: Bottle feeding problems: only breastfed while in hospital Bladder: No dysuria, gross hematuria, urinary frequency, urinary urgency, or incontinence Bowel symptoms: Negative for abdominal discomfort, blood in stools or black stools and change in bowel habits Abdomen: She reports no incisional redness, tenderness, erythema Bleeding: light flow Bottom and Perineum: No issues Sleep: no sleep concerns, feels rested [employer] since delivery: Resumed - had intercourse last night. Did not use condoms Emotional support: Yes Exercise: N/A Other issues: None PHYSICAL EXAMINATION: BP 110/70 Wt 217 lb 9.6 oz (98.7 kg) LMP 07/22/2021 (Exact Date) BMI 34.60 kg/m General: pleasant,female in no apparent distress, A&O x 3. Skin warm and intact. Breast: Deferred Abdomen: soft, non-tender and no masses /Incision: No incisional redness, swelling, or drainage Pelvic: Deferred Bimanual: Deferred ASSESSMENT AND PLAN: 1. 22 year old status post CS with normal course. 2. Contraception plan: Oral contraceptives . Reinforced 6-week pelvic rest. Encouraged condom usage should patient deviate. Will start POP not and transition to CHC after 6 week visit. 3. Education: resources provided - see MA/RN note 4. Patient feels like her mood is improving since being home, and she is not concerned at this time. Has good support at home. No SI or HI. Discussed reasons to call. Will reassess at 6 week visit. Follow up: Return to Clinic for 6 week visit and as needed Medical Decision Making Nayana Peterson DO documented in this encounter [facility] 04-25-2022 History of Presen t illness Narrative Patient delivered via by Dr. Peterson on 04/24/22 at [facility]. See OB history. Wendy Torres RN documented in this encounter [facility] 04-22-2022 Miscellaneous Notes Surgery and L&D notified. Epic and outlook updated. Jayda Mata RN I can help at 730 as I am precision agriculture technician 04/23. I have an HSG to do at 815 as well so we have to start on time. Thanks. Arnav Feliciano MD Will need client services assistant and that is the only day I can do her next week. If they have an STRUCTURAL STEEL DETAILER at noon - move her surgery to noon slot if open. Will route to other providers to see if someone can assist No Relief Cook is available c/s on 04/24/2022. Left message to call office back. Wendy Trores RN Dee at [facility] surgery checking and will call back if able to have STRUCTURAL STEEL DETAILER. Wendy Torres RN Please see if they can provide an STRUCTURAL STEEL DETAILER for this as the other one is canceled. Sumaya Gold MD Patient currently scheduled for 04/24/22 at 7:30am with SW. [facility] called asking if another surgeon can assist because they are down two RNFAs unexpectedly. Call [facility] back at [phone]. Wendy Torres RN documented in this encounter [facility] 04-17-2022 History and physical note DATE OF SERVICE: April 17, 2022 PROBLEM: breech presentation, 39 week gestation, single IUP, club foot of fetus, obesity DIAGNOSIS: As above PAST SURGICAL HISTORY: PAST SURGICAL HISTORY Procedure Laterality Date PAST SURGICAL HISTORY OF 2003 Left eye surgery following dog bite-Dr. Hubbard [facility] TONSILLECTOMY & ADENOIDECTOMY <AGE 12 [address] Castro PAST MEDICAL HISTORY: PAST MEDICAL HISTORY Diagnosis Date Depression NEGATIVE HISTORY OF 08/06/2011 Color Blindness Obese 03/09/2015 SUBJECTIVE: Pt doing well. No regular ctx, vb, lof. Good FM. SOCIAL HISTORY: Social History Tobacco Use Smoking status: Former Smoker Years: 5.00 Types: Cigarettes Quit date: 01/07/2021 Years since quittin.2 Smokeless tobacco: Never Used Vaping Use Vaping Use: Former Quit date: 08/27/2021 Substances: Nicotine, THC, CBD Substance Use Topics Alcohol use: Never Drug use: Never Current Outpatient Medications on File Prior to Visit Medication Sig omeprazole (PRILOSEC) 40 mg capsule Take 1 capsule by mouth once daily. multivitamin (CLASSIC ) 28 mg iron- 800 mcg tab(s) Take 1 tablet by mouth once daily. No current facility-administered medications on file prior to visit. ALLERGIES Allergen Reactions Morphine Swelling OBJECTIVE: VITALS: BP 100/66 Wt 235 lb 6.4 oz (106.8 kg) LMP 07/22/2021 (Exact Date) BMI 37.43 kg/m HEENT: Normocephalic, atraumatic, Mucus membranes moist without lesions. NECK: Soft and Supple. No adenopathy , thyromegaly or bruits. SKIN: No lesions. CHEST: Clear to auscultation. No wheezes or rales. Good air exchange. HEART: Regular rate and rhythm No S3 or S4. No gallops or rubs. BACK: Nontender with no CVA tenderness. ABDOMEN: Soft, non-tender, non-distended, no masses, no hepatosplenomegaly. LOWER EXTREMITIES: There was no pitting edema, no palpable cords and no skin changes. ASSESSMENT: breech presentation, 39 week gestation, single IUP, club foot of fetus, obesity PLAN: 1) Discussed r/b/a to section. The rationale for the proposed surgery was discussed in addition to risks, benefits, and alternatives. General pre- and post-operative care was reviewed. Questions were answered. After discussion, the patient indicated a desire to proceed with the planned surgery. Medical Decision Making: Problems: Moderate: New problem with uncertain prognosis Risk: High: Decision on elective major surgery w/ risk factors Medical Decision Making Level: 4 - Moderate documented in this encounter [facility] 04-17-2022 Miscellaneous Notes SW-Pre op visit. documented in this encounter [facility] 04-17-2022 Instructions Diana Subramanian MA - 04/17/2022 3:29 PM EDT SEQUENTIAL SCREENINGS The [facility] offers sequential screenings for women who are interested in screenings for chromosomal abnormalities and certain defects during a . The sequential screen combines ultrasound and blood tests to determine the risk of chromosomal abnormalities, including Down's Syndrome (Trisomy 21) and Trisomy 18, as well as open neural tube defects including spina bifida. Ultrasound examination is performed between 11 weeks and 13 weeks gestational age. Blood tests are drawn after the ultrasound and again later in the between 15 and 21 weeks gestational age. Please let your physician know if you are interested in this testing. It will require an appointment with our emergency response technician. This is not an ultrasound performed by a physician in our office during a routine visit. SIGNS AND SYMPTOMS OF LABOR 1. Contractions every 10 minutes or more often 2. Clear, pink, or brownish fluid (water) leaking from vagina 3. Feeling that baby is pushing down, pressure 4. Low, dull backache 5. Cramps that feel like a period 6. Cramps with or without diarrhea If you notice any of the above symptoms, contact our office at [phone] and ask to speak with a nurse. After hours, you can call doctors registry at [phone] OR call [facility] at [phone] and ask to have the doctor precision agriculture technician paged. If you consider this an emergency, dial 9-1-8 or go to your nearest emergency department. NEED HELP? Are you dealing with a violent or abusive relationship? Are you a victim of rape or sexual assult? Call [facility] ([facility] 24 hour Crisis Hotline: 860.195.7703 or 251-532-3988. MANUAL Your Guide to a Healthy manual is now on-line. Visit [email or web address] to download your free copy documented in this encounter [facility] 04-09-2022 Miscellaneous Notes SW- Pt doing well. No regular ctx, vb, lof. Good FM PE: Gen- NAD, well appearing Abd- Soft, gravid See flowsheet A/p 37 wk gestation - Discussed comfort measures and reasons call - Cont weekly visits Nayana Peterson DO documented in this encounter [facility] 04-09-2022 Instructions Diana Subramanian MA - 04/09/2022 8:32 AM EDT SEQUENTIAL SCREENINGS The [facility] offers sequential screenings for women who are interested in screenings for chromosomal abnormalities and certain defects during a . The sequential screen combines ultrasound and blood tests to determine the risk of chromosomal abnormalities, including Down's Syndrome (Trisomy 21) and Trisomy 18, as well as open neural tube defects including spina bifida. Ultrasound examination is performed between 11 weeks and 13 weeks gestational age. Blood tests are drawn after the ultrasound and again later in the between 15 and 21 weeks gestational age. Please let your physician know if you are interested in this testing. It will require an appointment with our emergency response technician. This is not an ultrasound performed by a physician in our office during a routine visit. SIGNS AND SYMPTOMS OF LABOR 1. Contractions every 10 minutes or more often 2. Clear, pink, or brownish fluid (water) leaking from vagina 3. Feeling that baby is pushing down, pressure 4. Low, dull backache 5. Cramps that feel like a period 6. Cramps with or without diarrhea If you notice any of the above symptoms, contact our office at [phone] and ask to speak with a nurse. After hours, you can call doctors registry at [phone] OR call [facility] at [phone] and ask to have the doctor precision agriculture technician paged. If you consider this an emergency, dial 9-1-1 or go to your nearest emergency department. NEED HELP? Are you dealing with a violent or abusive relationship? Are you a victim of rape or sexual assult? Call [facility] ([place]) 24 hour Crisis Hotline: 953.775.4325 or 898-514-4369. MANUAL Your Guide to a Healthy manual is now on-line. Visit [email or web address] to download your free copy documented in this encounter [facility] 03-27-2022 Miscellaneous Notes KJ - VB - patient seen urgently for vaginal discharge with pink blood in it. Denies other VB. . LOF No. CTXS Yes - irregular & mild. Movement: present. Other c/o: No. Medication list reviewed. Physical Exam See Flow Sheet Gen: no accute distress, well appearing Abd: soft, nontender, gravid : external genitalia: normal, vagina: pink, ruggated and white discharge: no blood, cervix: closed A/P 35w3d Estimated Date of Delivery: 04/28/22 No evidence of vaginal bleeding or PTL, patient reassured Vaginal infection panel ordered F/u as scheduled PTL precautions reviewed, Kick counts reviewed. Sumaya Gold MD documented in this encounter [facility] 03-27-2022 Tiago Roper Ma - 03/27/2022 2:26 PM EDT SEQUENTIAL SCREENINGS The [facility] offers sequential screenings for women who are interested in screenings for chromosomal abnormalities and certain defects during a . The sequential screen combines ultrasound and blood tests to determine the risk of chromosomal abnormalities, including Down's Syndrome (Trisomy 21) and Trisomy 18, as well as open neural tube defects including spina bifida. Ultrasound examination is performed between 11 weeks and 13 weeks gestational age. Blood tests are drawn after the ultrasound and again later in the between 15 and 21 weeks gestational age. Please let your physician know if you are interested in this testing. It will require an appointment with our emergency response technician. This is not an ultrasound performed by a physician in our office during a routine visit. SIGNS AND SYMPTOMS OF LABOR 1. Contractions every 10 minutes or more often 2. Clear, pink, or brownish fluid (water) leaking from vagina 3. Feeling that baby is pushing down, pressure 4. Low, dull backache 5. Cramps that feel like a period 6. Cramps with or without diarrhea If you notice any of the above symptoms, contact our office at [phone] and ask to speak with a nurse. After hours, you can call doctors registry at [phone] OR call [facility] at [phone] and ask to have the doctor precision agriculture technician paged. If you consider this an emergency, dial 9-1-6 or go to your nearest emergency department. NEED HELP? Are you dealing with a violent or abusive relationship? Are you a victim of rape or sexual assult? Call [facility] ([place]) 24 hour Crisis Hotline: 352.165.3092 or 102-688-8206. MANUAL Your Guide to a Healthy manual is now on-line. Visit [email or web address] to download your free copy documented in this encounter [facility] 03-24-2022 History of Presen t illness Narrative Shanae Iqbal PA-C [facility] [address] [place] [address] , March 24, 2022 CHIEF COMPLAINT: consultation ACCOMPANIED BY: Self HPI: Luis Eduardo Coats is a 21 year old female who presents to clinic for consultation for right clubfoot. Patient is 8 months and right clubfoot was identified on recent ultrasound. Patient states that her father and brothers all had clubfoot and has been treated with cast, boots and bar, and surgeries. ASSESSMENT: Z71.89 consult (primary encounter diagnosis) PLAN: Discussed natural history and progression of clubfoot. Advised mom to contact the office once the baby is born for evaluation. If Ponseti casting is necessary, we would begin at that time. Discussed the Ponseti method, Achilles tenotomy, and boots and bar today during the visit. Questions were invited and answered. OBJECTIVE: VIRTUAL VISIT Patient is a 21-year-old female in no acute distress. She is alert and oriented x3. IMAGING: US from 03/05/2022 indicated right clubfoot of baby boy Shanae Iqbal PA-C I spent 15 minutes on the visit with the patient. documented in this encounter [facility] 03-19-2022 Miscellaneous Notes SW- Pt doing well today. No ctx, pain, vb, lof. Good FM PE: Gen- NAD, well appearing Abd- Soft, gravid, NT Ext- No edema See flowsheet A/p 34 wk gestation - questions answered - Reviewed growth US - Scheduled with peds ortho for next week - Encouraged to schedule with counselor - BREECH- discussed ordered formal US for next visit to reassess Nayana Peterson DO documented in this encounter [facility] 03-19-2022 Instructions Diana Subramanian MA - 03/19/2022 8:28 AM EDT SEQUENTIAL SCREENINGS The [facility] offers sequential screenings for women who are interested in screenings for chromosomal abnormalities and certain defects during a . The sequential screen combines ultrasound and blood tests to determine the risk of chromosomal abnormalities, including Down's Syndrome (Trisomy 21) and Trisomy 18, as well as open neural tube defects including spina bifida. Ultrasound examination is performed between 11 weeks and 13 weeks gestational age. Blood tests are drawn after the ultrasound and again later in the between 15 and 21 weeks gestational age. Please let your physician know if you are interested in this testing. It will require an appointment with our emergency response technician. This is not an ultrasound performed by a physician in our office during a routine visit. SIGNS AND SYMPTOMS OF LABOR 1. Contractions every 10 minutes or more often 2. Clear, pink, or brownish fluid (water) leaking from vagina 3. Feeling that baby is pushing down, pressure 4. Low, dull backache 5. Cramps that feel like a period 6. Cramps with or without diarrhea If you notice any of the above symptoms, contact our office at [phone] and ask to speak with a nurse. After hours, you can call doctors registry at [phone] OR call [facility] at [phone] and ask to have the doctor precision agriculture technician paged. If you consider this an emergency, dial 9--6 or go to your nearest emergency department. NEED HELP? Are you dealing with a violent or abusive relationship? Are you a victim of rape or sexual assult? Call [facility] ([place]) 24 hour Crisis Hotline: 678.323.1304 or 357-360-2373. MANUAL Your Guide to a Healthy manual is now on-line. Visit [email or web address] to download your free copy documented in this encounter [facility] 03-05-2022 Miscellaneous Notes GEORGE-S: Luis Eduardo Coats is a 21 year old female who presents at 32w2d with RAIMUNDO: 04/28/2022, by Last Menstrual Period for a routine visit. Good FM. Denies headache, visual changes, chest pain, shortness of breath, vaginal bleeding, leakage of fluid, or dysuria. Feeling well, no complaints. O: See flow sheet Gen: No apparent distress Abd: Gravid, nontender ASSESSMENT/PLAN: 1. 32 weeks gestation of P: 1) PTL precautions reviewed and when to call 2) RTO in 2 weeks 3) Did not make appointment with Peds Orthopedics to discuss care. Information given for care center for phone number for . 4) Follow up growth US today, awaiting official report. US 24th percentile, SEVERO 18, breech. Handout given on breech exercises 5) 3hr GTT with 1 elevated level, discussed recommendation for diet modifications and exercise daily. 6) Consult completed with genetics Elizabeth Rosario APRN.CNM documented in this encounter [facility] 03-05-2022 Instructions Angelita Nunez MA - 03/05/2022 8:52 AM EDT SEQUENTIAL SCREENINGS The [facility] offers sequential screenings for women who are interested in screenings for chromosomal abnormalities and certain defects during a . The sequential screen combines ultrasound and blood tests to determine the risk of chromosomal abnormalities, including Down's Syndrome (Trisomy 21) and Trisomy 18, as well as open neural tube defects including spina bifida. Ultrasound examination is performed between 11 weeks and 13 weeks gestational age. Blood tests are drawn after the ultrasound and again later in the between 15 and 21 weeks gestational age. Please let your physician know if you are interested in this testing. It will require an appointment with our emergency response technician. This is not an ultrasound performed by a physician in our office during a routine visit. SIGNS AND SYMPTOMS OF LABOR 1. Contractions every 10 minutes or more often 2. Clear, pink, or brownish fluid (water) leaking from vagina 3. Feeling that baby is pushing down, pressure 4. Low, dull backache 5. Cramps that feel like a period 6. Cramps with or without diarrhea If you notice any of the above symptoms, contact our office at [phone] and ask to speak with a nurse. After hours, you can call doctors registry at [phone] OR call [facility] at [phone] and ask to have the doctor precision agriculture technician paged. If you consider this an emergency, dial 1-8-4 or go to your nearest emergency department. NEED HELP? Are you dealing with a violent or abusive relationship? Are you a victim of rape or sexual assult? Call [facility] ([facility] 24 hour Crisis Hotline: 722.552.1062 or 690-735-4549. MANUAL Your Guide to a Healthy manual is now on-line. Visit [email or web address] to download your free copy documented in this encounter [facility] 02-27-2022 Miscellaneous Notes Thank You for the update. Karey Armenta APRN.CNM 31w3d Patient calling to report that she is vomiting blood this morning. Bright red in color. Had occasional vomiting the last 2 days. Also having pain in her chest when she breathes. Advised to go to nearest ER for evaluation. Patient plans to go to [facility] ER. BHARATI Maxwell RN documented in this encounter [facility] 02-19-2022 Miscellaneous Notes SW- No ctx, vb, lof. Good FM. No MORAN or vision changes. Here today with mother. She is tearful and reports her mood has been worsening. H/o depression and was on Zoloft before in the past. She states the Zoloft did not help. Has never tried other medication. PE: Gen- NAD, well appearing Abd- Soft, gravid, NT Ext- No edema See flowsheet - Interested in cord blood banking. Briefly discussed and forgot to give handouts to pt prior to her leaving. To give at next visit - H/o depression: Worsening mood. No SI or HI. Declines starting medication today. Discussed r/b to SSRI. Referral placed to and discussed she needs to establish with psych/counselor - Questions answered regarding epidural - Growth US ordered - To schedule 3 hr GTT - Discussed upcoming expectations and reasons to call - RTO 2 wks for growth US and OB visit Nayana Peterson DO documented in this encounter [facility] 02-19-2022 Instructions Diana Subramanian MA - 02/19/2022 4:18 PM EDT SEQUENTIAL SCREENINGS The [facility] offers sequential screenings for women who are interested in screenings for chromosomal abnormalities and certain defects during a . The sequential screen combines ultrasound and blood tests to determine the risk of chromosomal abnormalities, including Down's Syndrome (Trisomy 21) and Trisomy 18, as well as open neural tube defects including spina bifida. Ultrasound examination is performed between 11 weeks and 13 weeks gestational age. Blood tests are drawn after the ultrasound and again later in the between 15 and 21 weeks gestational age. Please let your physician know if you are interested in this testing. It will require an appointment with our emergency response technician. This is not an ultrasound performed by a physician in our office during a routine visit. SIGNS AND SYMPTOMS OF LABOR 1. Contractions every 10 minutes or more often 2. Clear, pink, or brownish fluid (water) leaking from vagina 3. Feeling that baby is pushing down, pressure 4. Low, dull backache 5. Cramps that feel like a period 6. Cramps with or without diarrhea If you notice any of the above symptoms, contact our office at [phone] and ask to speak with a nurse. After hours, you can call doctors registry at [phone] OR call [facility] at [phone] and ask to have the doctor precision agriculture technician paged. If you consider this an emergency, dial 91-2 or go to your nearest emergency department. NEED HELP? Are you dealing with a violent or abusive relationship? Are you a victim of rape or sexual assult? Call [facility] ([place]) 24 hour Crisis Hotline: 832.497.9687 or 330-998-9867. MANUAL Your Guide to a Healthy manual is now on-line. Visit [email or web address] to download your free copy documented in this encounter [facility] 02-05-2022 Miscellaneous Notes DM-Pt doing well. Denies vaginal Bleeding, Leaking fluid, or regular Contractions. Pt reports good movement Physical Exam: Gen: female in no apparent distress Abd: soft, Gravid. Non tender to palpation. See flow sheet A/P: @ 28.2 weeks 1) 28 wk labs today, tdap today 2) kick counts reviewed 3) RTO 2 wks. 4) LARC form signed and declined 5) will call peds orthoChris Richard to arrange appt after delivery Germain Del Valle MD documented in this encounter [facility] 02-05-2022 History of Presen t illness Narrative Patient identified by name and date of . Luis Eduardo Coats presents today for a vaccination of Tdap. Patient denies an allergy to latex: yes Patient denies a severe (life-threatening) allergy to a previous dose of Tdap, DTP, DTaP, DT or Td vaccine. Yes Patient denies history of epilepsy or neurological problems: Yes Patient is afebrile and denies being moderately or severely ill: Yes Patient denies history of Guillain-Largo Syndrome (a severe paralytic illness): Yes Tdap Adacel injection was given without incident. See immunizations for details of immunizations administered today. VIS sheet provided: Yes Provider Hermes was present in office at time of injection. Louise Thao Ma documented in this encounter [facility] 02-05-2022 Instructions Louise Thao Ma - 02/05/2022 8:54 AM EDT SEQUENTIAL SCREENINGS The [facility] offers sequential screenings for women who are interested in screenings for chromosomal abnormalities and certain defects during a . The sequential screen combines ultrasound and blood tests to determine the risk of chromosomal abnormalities, including Down's Syndrome (Trisomy 21) and Trisomy 18, as well as open neural tube defects including spina bifida. Ultrasound examination is performed between 11 weeks and 13 weeks gestational age. Blood tests are drawn after the ultrasound and again later in the between 15 and 21 weeks gestational age. Please let your physician know if you are interested in this testing. It will require an appointment with our emergency response technician. This is not an ultrasound performed by a physician in our office during a routine visit. SIGNS AND SYMPTOMS OF LABOR 1. Contractions every 10 minutes or more often 2. Clear, pink, or brownish fluid (water) leaking from vagina 3. Feeling that baby is pushing down, pressure 4. Low, dull backache 5. Cramps that feel like a period 6. Cramps with or without diarrhea If you notice any of the above symptoms, contact our office at [phone] and ask to speak with a nurse. After hours, you can call doctors registry at [phone] OR call [facility] at [phone] and ask to have the doctor precision agriculture technician paged. If you consider this an emergency, dial 2-9-1 or go to your nearest emergency department. NEED HELP? Are you dealing with a violent or abusive relationship? Are you a victim of rape or sexual assult? Call [facility] ([place]) 24 hour Crisis Hotline: 179.134.7011 or 896-813-0037. MANUAL Your Guide to a Healthy manual is now on-line. Visit [email or web address] to download your free copy documented in this encounter [facility] documented as of this encounter (statuses as of 04/08/2023) [facility]* Diagnosis Club foot, , affecting care of mother, antepartum, fetus 1- Primary Encounter for supervision of normal first in third trimester Supervision of normal first 28 weeks gestation of state, incidental Need for vaccination Need for prophylactic vaccination and inoculation against unspecified single disease documented [facility]* Diagnosis 30 weeks gestation of - Primary state, incidental Encounter for supervision of normal first in third trimester Supervision of normal first History of depression Personal history of other mental disorder Club foot of fetus affecting antepartum care of mother, single or unspecified fetus documented [facility]* Diagnosis Known anomaly, antepartum, single or unspecified fetus- Primary 32 weeks gestation of state, incidental [facility]* Diagnosis 32 weeks gestation of - Primary state, incidental History of depression Mood swings Other specified episodic mood disorder [facility]* Diagnosis 34 weeks gestation of - Primary state, incidental Encounter for supervision of normal first in third trimester Supervision of normal first Breech presentation, single or unspecified fetus documented [facility]* Diagnosis consult- Primary Other reasons for seeking consultation documented in this encounter [facility] note* Diagnosis Encounter for supervision of normal first in third trimester- Primary Supervision of normal first 35 weeks gestation of state, incidental Vaginal discharge during in third trimester [facility] Diagnosis 37 weeks gestation of - Primary state, incidental Encounter for supervision of normal first in third trimester Supervision of normal first [facility]* Diagnosis 38 weeks gestation of - Primary state, incidental Encounter for supervision of normal first in third trimester Supervision of normal first care and examination of lactating mother Obesity complicating , third trimester Breech presentation with problem, single or unspecified fetus [facility]* Diagnosis Encounter for visit- Primary Encounter for initial prescription of contraceptive pills General counseling for prescription of oral contraceptives [facility]* Diagnosis care and examination- Primary Routine follow-up Encounter for initial prescription of contraceptive pills General counseling for prescription of oral contraceptives [facility]* Diagnosis Depression, unspecified depression type- Primary Missed menses Absence of menstruation [facility] Diagnosis with history of section, antepartum- Primary Short interval between pregnancies affecting , antepartum History of depression, currently with other poor obstetric history History of depression Personal history of other mental disorder Obesity during Family history of defect Family history of congenital anomalies Patient request for diagnostic testing Other specified examination documented in this encounter [facility] note* Diagnosis 8 weeks gestation of - Primary state, incidental Encounter for supervision of other normal in first trimester with history of section, antepartum [facility] Diagnosis 13 weeks gestation of - Primary state, incidental Encounter for supervision of other normal in first trimester Mild hyperemesis gravidarum Mild hyperemesis gravidarum, unspecified as to episode of care [facility]* Diagnosis Obesity in - Primary Obesity complicating , childbirth, or the puerperium, unspecified as to episode of care or not applicable Nausea/vomiting in Unspecified vomiting of , unspecified as to episode of care 18 weeks gestation of state, incidental documented in this encounter [facility] note* Diagnosis Encounter for anatomic survey- Primary 19 weeks gestation of state, incidental Obesity affecting in second trimester, unspecified obesity type documented in this encounter [facility] note* Diagnosis URI, acute- Primary Acute upper respiratory infections of unspecified site Wheezing documented in this encounter [facility] note* Diagnosis Supervision of high risk in second trimester- Primary Unspecified high-risk 22 weeks gestation of state, incidental documented in this encounter [facility] note* Diagnosis Encounter for follow-up ultrasound of anatomy documented in this encounter [facility] for referral (narrative)* Diagnostic Procedure Only (Routine) - Pending Review Specialty Diagnoses / Procedures Referred By Jenae narvaez Referred To [facility] Diagnoses 30 weeks gestation of Encounter for supervision of normal first in third trimester History of depression Club foot of fetus affecting antepartum care of mother, single or unspecified fetus Procedures OBSTETRIC ULTRASOUND WHI US PREG UTERUS AFTER 1ST TRIMEST GESTATION Nayana Peterson MD [address] [place] [address] [facility] [address] [place] [address] Referral ID Status Reason Start Date Expiration Date Visits Requested Visits Authorized [id number] Pending Review Auto-Generat ed Referral 02/19/2022 02/19/2023 1 1 [facility] for referral (narrative)* Diagnostic Procedure Only (Routine) - Authorized Specialty Diagnoses / Procedures Referred By Jenae narvaez Referred To [facility] Diagnoses 34 weeks gestation of Encounter for supervision of normal first in third trimester Breech presentation, single or unspecified fetus Procedures OBSTETRIC ULTRASOUND WHI US PREG UTERUS AFTER 1ST TRIMEST GESTATION Nayana Peterson MD [address] [place] [address] [facility] [place] [address] Referral ID Status Reason Start Date Expiration Date Visits Requested Visits Authorized [id number] Authorized Auto-Generat ed Referral 03/19/2022 03/19/2023 1 1 [facility] for referral (narrative)* Diagnostic Procedure Only (Routine) - Authorized Specialty Diagnoses / Procedures Referred By Contac t Referred To [facility] Diagnoses 8 weeks gestation of Encounter for supervision of other normal in first trimester Procedures NUCHAL TRANSLUCENCY WHI US NUCHAL TRANSLUCENCY 1ST GESTATION Nayana Peterson MD [address] [place] [address] [facility] [place] [address] Referral ID Status Reason Start Date Expiration Date Visits Requested Visits Authorized [id number] Authorized Auto-Generat ed Referral 2023 05/03/2024 1 1 * Diagnostic Procedure Only (Routine) - Pending Review Specialty Diagnoses / Procedures Referred By Jenae t Referred To Contact [facility] Diagnoses 8 weeks gestation of Encounter for supervision of other normal in first trimester Procedures OBSTETRIC ULTRASOUND WHI US PREG UTERUS AFTER 1ST TRIMEST GESTATION Nayana Peterson MD [address] [place] [address] [facility] [place] [address] Referral ID Status Reason Start Date Expiration Date Visits Requested Visits Authorized [id number] Pending Review Auto-Generat ed Referral 2023 05/03/2024 1 1 [facility] for visit Narrative* Diagnostic Procedure Only (Routine) - Closed Specialty Diagnoses / Procedures Referred By Contac t Referred To Contact [facility] Diagnoses Encounter for follow-up ultrasound of anatomy Procedures OBSTETRIC ULTRASOUND WHI US PREG UTERUS AFTER 1ST TRIMEST GESTATION Nayana Peterson MD [address] [place] [address] [facility] [place] [address] Referral ID Status Reason Start Date Expiration Date V isits Requested Visits Authorized [id number] Closed Auto-Generate d Referral 07/20/2023 07/19/2024 1 1 [facility] Summary Purpose Family History No Family History Records FoundNo Family History Records FoundNo Family History Records Found Advance Directives No Advanced Directives Records FoundNo Advanced Directives Records FoundNo Advanced Directives Records Found Health Concerns Problem Noted Date Diagnosed Date [facility] Education - [facility] 2023 Education - [place] 2023 Problem Noted Date Diagnosed Date [facility] Education - [facility] 2023 Education - [place] 2023 Problem Noted Date Diagnosed Date [facility] Education - [facility] 2023 Education - [place] 2023 Problem Noted Date Diagnosed Date [facility] Education - [facility] 2023 Education - [place] 2023 Problem Noted Date Diagnosed Date [facility] Education - [facility] 2023 Education - [place] 2023 Problem Noted Date Diagnosed Date [facility] Education - [facility] 2023 Education - [place] 2023 Problem Noted Date Diagnosed Date [facility] Education - [facility] 2023 Education - [place] 2023 Problem Noted Date Diagnosed Date [facility] Education - [facility] 2023 Education - [place] 2023 Problem Noted Date Diagnosed Date [facility] Education - [facility] 2023 Education - [place] 2023 Reason for Referral Specialty Diagnoses / Procedures Referred By Jenae t Referred To Contact Arnav Feliciano MD [address] [place] [address] Referral ID Status Reason Start Date Expiration Date Visits Re quested Visits Authorized [id number] Closed 1 1 Specialty Diagnoses / Procedures Referred By Jenae t Referred To Contact Germain Bergeron MD [address] [place] [address] Referral ID Status Reason Start Date Expiration Date Visits Re quested Visits Authorized [id number] Closed 1 1 Specialty Diagnoses / Procedures Referred By Jenae t Referred To Contact Sumaya Gold MD [address] [place] [address] Referral ID Status Reason Start Date Expiration Date Visits Re quested Visits Authorized [id number] Closed 1 1 Additional Source Comments INFORMATION SOURCE (unrecogn ized section and content) DATE CREATED AUTHOR AUTHOR'S ORGANIZ ATION 01/10/2020 [facility] DATE CREATED AUTHOR AUTHOR'S ORGANIZ ATION 11/18/2023 [facility] Source Comments (unrecognize d section and content) In the event this informatio n is protected by the Federal Confidentiality of Alcohol and Drug Abuse Patient Records regulations: The Federal rules restrict any use of the information to criminally investigate or prosecute any alcohol or drug abuse patient.[facility] HospitalIn the event this information is protected by the Federal Confidentiality of Alcohol and Drug Abuse Patient Records regulations: The Federal rules restrict any use of the information to criminally investigate or prosecute any alcohol or drug abuse patient.[facility] HospitalIn the event this information is protected by the Federal Confidentiality of Alcohol and Drug Abuse Patient Records regulations: The Federal rules restrict any use of the information to criminally investigate or prosecute any alcohol or drug abuse patient.[facility] HospitalIn the event this information is protected by the Federal Confidentiality of Alcohol and Drug Abuse Patient Records regulations: The Federal rules restrict any use of the information to criminally investigate or prosecute any alcohol or drug abuse patient.[facility] HospitalIn the event this information is protected by the Federal Confidentiality of Alcohol and Drug Abuse Patient Records regulations: The Federal rules restrict any use of the information to criminally investigate or prosecute any alcohol or drug abuse patient.[facility] HospitalIn the event this information is protected by the Federal Confidentiality of Alcohol and Drug Abuse Patient Records regulations: The Federal rules restrict any use of the information to criminally investigate or prosecute any alcohol or drug abuse patient.[facility] HospitalIn the event this information is protected by the Federal Confidentiality of Alcohol and Drug Abuse Patient Records regulations: The Federal rules restrict any use of the information to criminally investigate or prosecute any alcohol or drug abuse patient.[facility] HospitalIn the event this information is protected by the Federal Confidentiality of Alcohol and Drug Abuse Patient Records regulations: The Federal rules restrict any use of the information to criminally investigate or prosecute any alcohol or drug abuse patient.[facility] HospitalIn the event this information is protected by the Federal Confidentiality of Alcohol and Drug Abuse Patient Records regulations: The Federal rules restrict any use of the information to criminally investigate or prosecute any alcohol or drug abuse patient.[facility] HospitalIn the event this information is protected by the Federal Confidentiality of Alcohol and Drug Abuse Patient Records regulations: The Federal rules restrict any use of the information to criminally investigate or prosecute any alcohol or drug abuse patient.[facility] HospitalIn the event this information is protected by the Federal Confidentiality of Alcohol and Drug Abuse Patient Records regulations: The Federal rules restrict any use of the information to criminally investigate or prosecute any alcohol or drug abuse patient.[facility] HospitalIn the event this information is protected by the Federal Confidentiality of Alcohol and Drug Abuse Patient Records regulations: The Federal rules restrict any use of the information to criminally investigate or prosecute any alcohol or drug abuse patient.[facility] HospitalIn the event this information is protected by the Federal Confidentiality of Alcohol and Drug Abuse Patient Records regulations: The Federal rules restrict any use of the information to criminally investigate or prosecute any alcohol or drug abuse patient.[facility] HospitalIn the event this information is protected by the Federal Confidentiality of Alcohol and Drug Abuse Patient Records regulations: The Federal rules restrict any use of the information to criminally investigate or prosecute any alcohol or drug abuse patient.[facility] HospitalIn the event this information is protected by the Federal Confidentiality of Alcohol and Drug Abuse Patient Records regulations: The Federal rules restrict any use of the information to criminally investigate or prosecute any alcohol or drug abuse patient.[facility] HospitalIn the event this information is protected by the Federal Confidentiality of Alcohol and Drug Abuse Patient Records regulations: The Federal rules restrict any use of the information to criminally investigate or prosecute any alcohol or drug abuse patient.[facility] HospitalIn the event this information is protected by the Federal Confidentiality of Alcohol and Drug Abuse Patient Records regulations: The Federal rules restrict any use of the information to criminally investigate or prosecute any alcohol or drug abuse patient.[facility] HospitalIn the event this information is protected by the Federal Confidentiality of Alcohol and Drug Abuse Patient Records regulations: The Federal rules restrict any use of the information to criminally investigate or prosecute any alcohol or drug abuse patient.[facility] HospitalIn the event this information is protected by the Federal Confidentiality of Alcohol and Drug Abuse Patient Records regulations: The Federal rules restrict any use of the information to criminally investigate or prosecute any alcohol or drug abuse patient.[facility] HospitalIn the event this information is protected by the Federal Confidentiality of Alcohol and Drug Abuse Patient Records regulations: The Federal rules restrict any use of the information to criminally investigate or prosecute any alcohol or drug abuse patient.[facility] HospitalIn the event this information is protected by the Federal Confidentiality of Alcohol and Drug Abuse Patient Records regulations: The Federal rules restrict any use of the information to criminally investigate or prosecute any alcohol or drug abuse patient.[facility] HospitalIn the event this information is protected by the Federal Confidentiality of Alcohol and Drug Abuse Patient Records regulations: The Federal rules restrict any use of the information to criminally investigate or prosecute any alcohol or drug abuse patient.[facility] HospitalIn the event this information is protected by the Federal Confidentiality of Alcohol and Drug Abuse Patient Records regulations: The Federal rules restrict any use of the information to criminally investigate or prosecute any alcohol or drug abuse patient.[facility] the event this information is protected by the Federal Confidentiality of Alcohol and Drug Abuse Patient Records regulations: The Federal rules restrict any use of the information to criminally investigate or prosecute any alcohol or drug abuse patient.[facility] HospitalIn the event this information is protected by the Federal Confidentiality of Alcohol and Drug Abuse Patient Records regulations: The Federal rules restrict any use of the information to criminally investigate or prosecute any alcohol or drug abuse patient.[facility] HospitalIn the event this information is protected by the Federal Confidentiality of Alcohol and Drug Abuse Patient Records regulations: The Federal rules restrict any use of the information to criminally investigate or prosecute any alcohol or drug abuse patient.[facility] ClinicIn the event this information is protected by the Federal Confidentiality of Alcohol and Drug Abuse Patient Records regulations: The Federal rules restrict any use of the information to criminally investigate or prosecute any alcohol or drug abuse patient.[facility] HospitalIn the event this information is protected by the Federal Confidentiality of Alcohol and Drug Abuse Patient Records regulations: The Federal rules restrict any use of the information to criminally investigate or prosecute any alcohol or drug abuse patient.[facility] HospitalIn the event this information is protected by the Federal Confidentiality of Alcohol and Drug Abuse Patient Records regulations: The Federal rules restrict any use of the information to criminally investigate or prosecute any alcohol or drug abuse patient.[facility] HospitalIn the event this information is protected by the Federal Confidentiality of Alcohol and Drug Abuse Patient Records regulations: The Federal rules restrict any use of the information to criminally investigate or prosecute any alcohol or drug abuse patient.[facility] HospitalIn the event this information is protected by the Federal Confidentiality of Alcohol and Drug Abuse Patient Records regulations: The Federal rules restrict any use of the information to criminally investigate or prosecute any alcohol or drug abuse patient.[facility] Reason for Visit (unrecogniz ed section and content) Reason Comments Consult Initial SW Pt Outr each Reason Onset Date Comments Care 02/19/2022 Reason Comments OB Vomiting Blood Reason Comments US Specialty Diagnoses / Procedures Referred By Jenae t Referred To Contact [facility] Diagnoses 30 weeks gestation of Encounter for supervision of normal first in third trimester History of depression Club foot of fetus affecting antepartum care of mother, single or unspecified fetus Procedures OBSTETRIC ULTRASOUND WHI US PREG UTERUS AFTER 1ST TRIMEST GESTATION Nayana Peterson MD [address] [place] [address] [facility] [address] [place] [address] Referral ID Status Reason Start Date Expiration Date V isits Requested Visits Authorized [id number] Closed Auto-Generate d Referral 02/19/2022 02/19/2023 1 1 Reason Onset Date Comments Care 03/05/2022 Reason Onset Date Comments Care 03/19/2022 Reason Comments New Reason Onset Date Comments Care 03/27/2022 Reason Onset Date Comments Care 04/09/2022 Reason Onset Date Comments Care 04/17/2022 Reason Comments Section Reason Comments Ob Delivery Note Reason Comments Early incision check Reason Comments Routine Reason Comments RTW form Reason Comments Follow Up Depression Reason Comments Future Appointment Reason Comments Care Reason Comments pelvic pain in Reason Comments Care Reason Comments Forms praf Reason Onset Date Comments Care 06/03/2023 Reason Comments Outside Testing Reason Onset Date Comments Care 07/08/2023 Specialty Diagnoses / Procedures Referred By Jenae narvaez Referred To Contact [facility] Diagnoses 8 weeks gestation of Encounter for supervision of other normal in first trimester Procedures OBSTETRIC ULTRASOUND WHI US PREG UTERUS AFTER 1ST TRIMEST GESTATION Nayana Peterson MD [address] [facility] [place] [address] [facility] [address] [place] [address] Referral ID Status Reason Start Date Expiration Date V isits Requested Visits Authorized [id number] Closed Auto-Generate d Referral 2023 05/03/2024 1 1 Reason Comments Cough Cough, ST, congestio n and MORAN x 2 days Reason Onset Date Comments Care 08/06/2023 Reason Comments Insurance Authorization Care Teams (unrecognized sec tion and content) [employer] Relationship Specialty Start Date End Date Kevin Man MD [address] [place] [address] [phone] PCP - General Pediatrics 07/24/14 [employer] Relationship Specialty Start Date End Date Kevin Man MD [address] [place] [address] [phone] PCP - General Pediatrics 07/24/14 [employer] Relationship Specialty Start Date End Date Kevin Man MD [address] [place] [address] [id number] PCP - General Pediatrics 07/24/14 [employer] Relationship Specialty Start Date End Date Kevin Man MD [address] [place] [address] [phone] PCP - General Pediatrics 07/24/14 [employer] Relationship Specialty Start Date End Date Kevin Man MD [address] [place] [id number] PCP - General Pediatrics 07/24/14 [employer] Relationship Specialty Start Date End Date Kevin Man MD [address] [place] [address] [phone] PCP - General Pediatrics 07/24/14 [employer] Relationship Specialty Start Date End Date Kevin Man MD [address] [place] [address] PCP - General Pediatrics 07/24/14 [employer] Relationship Specialty [place] [address] [place] [id number] PCP - General Pediatrics 07/24/14 [employer] Relationship Specialty [place] [address] [place] [address], [place] [address] PCP - General Pediatrics 07/24/14 [employer] Relationship Specialty Start Date End Date Kevin Man MD [address] [place] [id number] PCP - General Pediatrics 07/24/14 [employer] Relationship Specialty Start Date End Date Kevin Man MD [address] [place] [address] [place] [address] PCP - General Pediatrics 07/24/14 [employer] Relationship Specialty Start Date End Date Kar Rodriguez APRN.[employer] [address] [place] [id number] PCP - General Internal Medicine 02/03/23 [employer] Relationship Specialty Start Date End Date Kar Rodriguez APRN.[employer] [address] [place] [address] [place] [address] PCP - General Internal Medicine 02/03/23 [employer] Relationship Specialty Start Date End Date Kar Rodriguez APRN.[employer] [address] [place] [address], [place] [address] PCP - General Internal Medicine 02/03/23 [employer] Relationship Specialty Start Date End Date Kar Rodriguez APRN.[employer] [address] [place] [id number] PCP - General Internal Medicine 02/03/23 [employer] Relationship Specialty Start Date End Date Kar Rodriguez APRN.[employer] [address] [place] [id number] PCP - General Internal Medicine 02/03/23 [employer] Relationship Specialty Start Date End Date Kar Rodriguez APRN.[employer] [address] [place] [id number] PCP - General Internal Medicine 02/03/23 [employer] Relationship Specialty Start Date End Date Kar Rodriguez APRN.[employer] [address] [place] [id number] PCP - General Internal Medicine 02/03/23 [employer] Relationship Specialty Start Date End Date Kar Rodriguez APRN.[employer] [address] [place] [phone] PCP - General Internal Medicine 02/03/23 [employer] Relationship Specialty Start Date End Date Kar Rodriguez APRN.[employer] [address] [place] [id number] PCP - General Internal Medicine 02/03/23 [employer] Relationship Specialty Start Date End Date Kar Rodriguez [employer] [address] [place] [id number] PCP - General Internal Medicine 02/03/23 [employer] Relationship Specialty Start Date End Date Kar Rodriguez APRN.[employer] [address] [place] [id number] PCP - General Internal Medicine 02/03/23 [employer] Relationship Specialty Start Date End Date Kar Rodriguez APRN.[facility] [address] [place] [address] PCP - General Internal Medicine 02/03/23 FOR RECORDS PERTAINING TO PATIENTS WHO ARE OR HAVE BEEN ENROLLED IN A CHEMICAL DEPENDENCY/SUBSTANCEABUSE PROGRAM, SOME INFORMATION MAY BE OMITTED. This clinical summary was aggregated from multiple sources. Caution should be exercised in using it in the provision of clinical care. This summary normalizes information from multiple sources, and as a consequence, information in this document may materially change the coding, format and clinical context of patient data. In addition, data may be omitted in some cases. CLINICAL DECISIONS SHOULD BE BASED ON THE PRIMARY CLINICAL RECORDS. [facility]. provides no warranty or guarantee of the accuracy or completeness of information in this document.
[2023-11-20 01:20] VITALS: BP 105/63; PULSE 91; O2SAT 96
[2023-11-20 01:32] VITALS: BMI 36.8
[2023-11-20 01:41] LABS: Color, Urine Yellow (Yellow); Glucose, Dipstick Normal (Normal); Ketone-Dipstick 5 mg/dl (Negative); Leukocyte Esterase-Dipstick 100 /ul (Negative); Nitrite-Dipstick Negative (Negative); Occult Blood-Urine 10 /ul (Negative); Protein-Dipstick 30 mg/dl (Negative); Urine Clarity Turbid (Clear); Urine Urobilinogen 1 mg/dl (Normal)
[2023-11-20 01:42] LABS: Urine Bilirubin Dipstick 1 mg/dL (Negative)
[2023-11-20] MEDS: Lactated Ringers 1,000 ML 999 ML IV (02:30)
[2023-11-20] MEDS: Cephalexin 500 MG Capsule PO (02:41)
[2023-11-20] MEDS: Mag Hydrox/Al Hydrox/Simeth 30 ML UDC PO (02:53)
--- NOTE | 2023-11-22 11:13 | OB.TRI.NOTE ---
HPI - General General Date of Admission: 11/20/23 Date of Service: 11/20/23 Chief Complaint: contractions HPI Narrative LUIS EDUARDO COATS, is a 23 F who presents complaining contractions. 2 para 1 Maternal Data Information Final RAIMUNDO: 12/09/23 Gestational age: 37 2/7 PFSH PFSH Medical History Depression Migraine Home Medications albuterol sulfate 90 mcg/actuation aerosol inhaler 2 inh inhalation Q4H PRN shortness of breath or wheezing 09/15/23 [History Last Taken Unknown] Allergy/AdvReac Type Severity Reaction Status Date / Time morphine Allergy Swelling Verified 11/20/23 01:32 Surgical History History of surgery History of tonsillectomy and adenoidectomy Social History Smoking Status: Former smoker History 1 Elective abortions Hx Para 1 Spontaneous abortions Hx # Term Pregnancies Ectopic pregnancies Hx # Pregnancies Multiple births # of living children NST FHR Rate Baby A Baseline: 115 Variability:: Moderate Accelerations:: 15 x 15 Decelerations:: None NST Reactive:: Yes FHR Category:: Category I Uterine Activity:: irreg ctxs Assessment & Plan (1) 37 weeks gestation of : PLAN: High risk multigravida at 37-2/7 weeks gestation with irregular contractions here for rule out labor. No evidence of labor. Discharge home and follow-up in the office as needed or return as needed. Patient was comfortable with plan.
== END 2023-11-20 03:40 | disposition home or self-care (01) ==
LOC: WPOUT 01:04 → WP 01:04
PROVIDERS: PCP Internal Medicine; Referring Provider Obstetrics & Gynecology; Visit Provider Obstetrics & Gynecology
DX: O47.1 False labor at or after 37 completed weeks of gestation (principal); Z3A.37 37 weeks gestation of pregnancy; Z87.891 Personal history of nicotine dependence
CPT/HCPCS: 96360; 59025; 81002; 87086; 87088; J7120

== ENCOUNTER 2023-12-03 09:16 | Inpatient (IN) | payer MEDICAID, SELFPAY ==
[2023-12-03] VITALS (24 sets, daily range): BP systolic 86–124; BP diastolic 55–80; PULSE 53–93; RESP 13–22; TEMP 36.2–36.9; O2SAT 97–99; BMI 37.2
[2023-12-03] MEDS: Lactated Ringers 1,000 ML 999 ML IV (09:46)
[2023-12-03 10:23] LABS: Absolute Lymphocyte Count 1.91 X10^3/uL (0.83-4.51); Absolute Neutrophil Count 9.5 X10^3/uL (2.0-7.7); Basophil# 0.03 X10^3/uL; Basophil% 0.2 % (0-1); Eosinophil# 0.16 X10^3/uL; Eosinophils% 1.3 % (0-5); Hematocrit 32.1 % (37-47); Hemoglobin 9.8 g/dL (12.0-15.0); Lymphocyte # 1.91 X10^3/ul (0.83-4.51); Lymphocyte % 15.6 % (19-41); Mean Corp Hgb Conc 30.5 g/dL (32-36); Mean Corpuscular Hgb 22.6 pg (27.0-32.0); Mean Corpuscular Volume 74.1 fL (81-99); Mean Platelet Vol. 12.4 fl (6.2-12.0); Monocyte# 0.57 X10^3/uL; Monocyte% 4.7 % (0-10); NRBC Flagged by Analyzer 0 % (0-5); Neutrophil # 9.49 X10^3/uL (2.7-7.7); Neutrophil % 77.5 % (47-70); Platelet Count 190 K/mm3 (150-450); RBC Distribution Width CV 15.2 % (11.6-14.6); RBC Distribution Width SD 40.8 fl (35.1-43.9); Red Blood Count 4.33 M/mm3 (4.2-5.4); White Blood Count 12.2 K/mm3 (4.4-11.0)
[2023-12-03] MEDS: Acetaminophen 500 MG Tablet 1000 MG PO ×3 (10:34→22:28)
[2023-12-03] MEDS: Lactated Ringers 1,000 ML 150 ML IV (10:50)
[2023-12-03 11:06] LABS: Syphilis Antibodies Non-reactive
[2023-12-03] MEDS: Sodium Citrate/Citric Acid 30 ML UDC PO (11:50)
[2023-12-03] MEDS: Cefazolin 2 GM in 0.9% Normal Saline (100mL Bag) 100 ML IV (12:01)
[2023-12-03 12:14] LABS: Amphetamine Urine VISTA NEGATIVE (<1000 ng/mL); Barbiturate Urine VISTA NEGATIVE (< 200 ng/mL); Benzodiazepine Urine VISTA NEGATIVE (< 200 ng/mL); Cocaine Urine VISTA NEGATIVE (< 300 ng/mL); Ecstacy Urine VISTA NEGATIVE (< 500 ng/mL); Methadone Urine VISTA NEGATIVE (< 300 ng/mL); PCP Urine VISTA NEGATIVE (< 25 ng/mL); THC Urine VISTA POSITIVE (< 50 ng/mL); Vista UDS pH Range 7
--- NOTE | 2023-12-03 13:13 | PCM.HP.OB ---
HPI - General General Date of Admission: 12/03/23 Date of Service: 12/03/23 Chief Complaint: repeat section HPI Narrative LUIS EDUARDO COATS, is a 23 F who presents for scheduled repeat section. She offers no complaints. [facility] Medical History (Updated 12/03/23 @ 13:[address] Abena Peterson DO) delivery delivered Depression Migraine Home Medications albuterol sulfate 90 mcg/actuation aerosol inhaler 2 inh inhalation Q4H PRN shortness of breath or wheezing 09/15/23 [History Last Taken 10/19/23] Allergy/AdvReac Type Severity Reaction Status Date / Time morphine Allergy Swelling Verified 12/03/23 09:48 Surgical History (Updated 12/03/23 @ 13:[address] Abena Peterson DO) History of surgery History of tonsillectomy and adenoidectomy Social History Smoking Status: Current every day smoker tobacco type: cigarettes History 1 Elective abortions Hx Para 1 Spontaneous abortions Hx # Term Pregnancies Ectopic pregnancies Hx # Pregnancies Multiple births # of living children Vital Signs Vital Signs Vital Signs: 12/03/23 10:29 Temperature 98.0 F Temperature Source Temporal Pulse Rate 93 Respiratory Rate 16 Blood Pressure 124/80 H Blood Pressure Mean 94 Blood Pressure Source Monitor Blood Pressure Position Semi-Fowlers Blood Pressure Location Left Arm Pulse Ox 98 Oxygen Delivery Method Room Air Weight Weight: 230 lb 9.6 oz Body Mass Index (BMI) 37.2 Physical Exam Const alert and no apparent distress General Appearance: comfortable HEENT normocephalic Resp normal respiratory effort GI soft to palpation, non-tender and non-distended Labs Labs Labs: Blood Type A POSITIVE Antibody Screen NEGATIVE Hct 32.1 % (37-47) L Hgb 9.8 g/dL (12.0-15.0) L Obstetrics Ultrasound Syphilis Total Ab Non-reactive Rhogam given: No Assessment & Plan (1) 39 weeks gestation of : PLAN: Discussed r/b/a repeat section in detail and questions answered. Consent signed and patient desires to proceed with repeat section. (2) History of section: (3) Delivery by section: (4) Obesity affecting : (5) History of depression:
--- NOTE | 2023-12-03 13:16 | OP.PCM_ITS ---
Problems Associated Problem List Diagnoses (1) 39 weeks gestation of : (2) Obesity affecting : (3) Delivery by section: (4) History of section: Report of Operation Date of Procedure: 12/03/23 Pre-Operative Diagnosis: 39 week gestation, history prior section, obesity Post-Operative Diagnosis: As above Surgery/Procedure Performed:: RLTCS via pfanennstiel incision Description of Surgical Findings:: Normal appearing uterus and bilateral adnexa. VMI in cephalic presentation. Apgars 8, 9. weight 8 lb 6 oz. Clear fluid. Normal appearing placenta with 3 VC. Fascia dense and adhered to rectus muscles. Rectus muscles adhered in the midline. Surgeon: Abena Peterson tank wagon driver: Ninfa WEBB Type of Anesthesia: Spinal Special Medications: None Specimen's removed: Placenta Drains: Dobbs Estimated Blood Loss (mL): 500 Fluids Replaced: See anesthesia record Description of Procedure: The patient was taken to the operating room where spinal anesthesia was induced and noted to be adequate. She was prepped and draped in the dorsal supine position with a leftward tilt. A Pfannenstiel skin incision was made with a scalpel and this was carried down to the underlying layer of fascia. The fascia was incised in the midline. The fascia was extended laterally using Mckeon scissors. The fascia was dissected off of the rectus muscles in both a cephalad and caudad direction using sharp dissection. The rectus muscles were in the midline using sharp dissection until identifying the peritoneum below. The peritoneum was entered bluntly. The peritoneal incision was extended bluntly using lateral traction. A bladder blade was inserted. A low transverse incision was made on the uterus with a scalpel. Membranes were ruptured for clear fluid. The infant's head was flexed and delivered through the hysterotomy, followed by the shoulders and body of the infant without any tracti on, force, or delay. The cord was clamped and cut after a slight delay. The infant was handed off to the awaiting nursery staff. The placenta was removed with manual extraction and noted to be normal-appearing with a three-vessel cord. The uterus was cleared of all clot debris. The uterus was exteriorized. The hysterotomy was closed with 1-0 Vicryl in a running locked fashion. Hemostasis was noted. Bilateral adnexa were normal-appearing. The uterus was placed back to the abdomen. Hemostasis was again noted. The peritoneum was closed with 3-0 Vicryl in a running fashion. The subfascial space was noted to be hemostatic. The fascia was closed with strata fix in a running fashion. Subcutaneous space was irrigated and made hemostatic with the Bovie cautery. The subcutaneous space was reapproximated using 3-0 Vicryl. The skin was closed with 4-0 Monocryl in a subcuticular fashion. A dressing was placed. Instrument, sponge, needle counts were correct. The patient was taken to recovery room in stable condition. Ninfa WEBB was present for the entire case and assisted with prepping the patient, delivery of infant, and closure. Grafts/Implants Used: None Procedure Start Time: 12:27 Procedure Stop Time: 13:23 Complications None Admit VTE Documentation VTE Present on Admission: No VTE Mechan Device Prophylaxis: SCD's
[2023-12-03] MEDS: Oxytocin 15 Units/NS 250ml 15 UNITS/250 ML IV.SOLN 83 UNITS IV (13:40)
[2023-12-03] MEDS: SimETHICONE 80 MG Chewable Tablet PO ×2 (14:12→23:29)
[2023-12-03] MEDS: Ketorolac 30 MG/ML Syringe IV ×2 (14:13→20:08)
--- NOTE | 2023-12-03 14:33 | NURSING ---
two initial sets on vital signs in recovery did not transfer in the central monitoring, vital signs WNL and this RN remains at bedside for continuous monitoring
[2023-12-03] MEDS: oxyCODONE 5 MG Tablet PO ×3 (15:17→23:29)
[2023-12-03] MEDS: Lactated Ringers 1,000 ML 100 ML IV (16:40)
[2023-12-04] MEDS: Ketorolac 30 MG/ML Syringe IV ×2 (01:57→08:27)
[2023-12-04] MEDS: 0.9% Saline Lock 10 ML Syringe IV ×2 (01:58→08:27)
[2023-12-04] MEDS: Acetaminophen 500 MG Tablet 1000 MG PO ×4 (05:09→22:45)
[2023-12-04 05:11] VITALS: BP 120/80; PULSE 74; RESP 16; TEMP 36.8; O2SAT 98
--- NOTE | 2023-12-04 08:24 | PCM.PN.OB ---
Subjective Subjective Pain well controlled, average lochia. No N/V. Ambulating w/o difficulty. Sarmad. regular diet Objective Data Objective Data Vital Signs: Vital Signs Temp Pulse Resp BP Pulse Ox O2 Del Method 98.2 F 74 16 120/80 98 Room Air 12/04/23 05:11 12/04/23 05:11 12/04/23 05:11 12/04/23 05:11 12/04/23 05:11 12/04/23 05:11 Oxygen Delivery Method Room Air Weight: 104.598 kg Body Mass Index (BMI) 37.2 Intake & Output: Intake and Output for Last 24 Hours 12/02/23 12/03/23 12/04/23 23:59 23:59 23:59 Intake Total 2147.33 / 2147.33 Output Total 1300 / 1300 Balance 847.33 / 847.33 Lab / Micro Data 12/03/23 09:45 Labs: Laboratory Results - last 24 hr 12/03/23 09:45: WBC 12.2 H, RBC 4.33, Hgb 9.8 L, Hct 32.1 L, MCV 74.1 L, MCH 22.6 L, MCHC 30.5 L, RDW Std Deviation 40.8, RDW Coeff of Pratima 15.2 H, Plt Count 190, MPV 12.4 H, Immature Gran % (Auto) 0.700, Neut % (Auto) 77.5 H, Lymph % (Auto) 15.6 L, Mcculloch % (Auto) 4.7, Eos % (Auto) 1.3, Baso % (Auto) 0.2, Absolute Neuts (auto) 9.5 H, Absolute Lymphs (auto) 1.91, Nucleated RBC % 0, Syphilis Total Ab Non-reactive, Blood Type A POSITIVE, Antibody Screen NEGATIVE 12/03/23 11:50: Urine Opiates Screen NEGATIVE, Urine Methadone Screen NEGATIVE, Ur Barbiturates Screen NEGATIVE, Ur Phencyclidine Scrn NEGATIVE, Ur Amphetamines Screen NEGATIVE, MDMA (Ecstasy) Screen NEGATIVE, U Benzodiazepines Scrn NEGATIVE, Urine Cocaine Screen NEGATIVE, U Cannabinoids Screen POSITIVE H, Ur Drug Screen Comment Physical Exam Const alert General Appearance: cooperative GI GI Narrative: soft, moderate distention, fundus firm, appropriately tender. Abdominal bandage clean dry and intact Assessment & Plan (1) Delivery by section: PLAN: POD#1 routine care likely d/c home tomorrow mild acute blood loss anemia, c/w blood loss from surgery
[2023-12-04] MEDS: Senna/Docusate Sodium 1 Tablet PO (08:28)
[2023-12-04 08:37] VITALS: BP 93/69; PULSE 84; RESP 18; TEMP 36.6; O2SAT 99
[2023-12-04 08:57] LABS: Hemoglobin 9.1 g/dL (12.0-15.0); Mean Corp Hgb Conc 30.3 g/dL (32-36); Mean Corpuscular Hgb 22.6 pg (27.0-32.0); Mean Corpuscular Volume 74.6 fL (81-99); Platelet Count 171 K/mm3 (150-450); RBC Distribution Width CV 15.3 % (11.6-14.6); RBC Distribution Width SD 41.1 fl (35.1-43.9); Red Blood Count 4.02 M/mm3 (4.2-5.4); White Blood Count 10.6 K/mm3 (4.4-11.0)
--- NOTE | 2023-12-04 11:12 | CASEMGMT ---
Social Work Assessment Labor and Delivery Unit Patient Address: [address] [place] [address] [place] [address] Phone number: [phone] Date of Referral: 12/03/23 Time of Referral:? [phone] Referred By: Abena Peterson Date of Intervention: ??12/04/23 Time of Intervention:? 1000 Reason for Referral:? Substance use Miguelina completed chart review and acknowledges social work consult entered due to maternal substance use. Sw presented to bedside and introduced self to mother of baby (ZEESHAN Begum). At time there were several visitors present, sw offered to return at a different time to complete psychosocial assessment, but NEDRA states that now was fine. Sw completed assessment and provided resources and literature for parents to review. History obtained from: medical records, NEDRA and FAIZA Household composition: Currently residing in the family home is FAIZA SNEED, their 18 month old son: Guillermo. Also residing in the home is maternal grandma and NEDRA's 16 year old sister. Parents deny any issues or concerns with housing. Patient's parent/guardian status:? ?NEDRA states that she and FAIZA have been together for 3 years, they met at a bar. baby is second baby for parents together. No concerns at this time is regarding domestic violence or intimate partner violence. Medical History: ?NEDRA is 23 year old female who is 2, para 1- now 2 following labor and delivery of . NEDRA received routine care with [facility]. NEDRA delivered baby via repeat on 12/03/23 at 39 weeks gestation. Baby boy, named Lyle, was born weighing 8lb 7oz and his apgars were 8 and 9 at one and five minutes of life respectfully. Baby will be followed by Dr. Fernández for pediatrics. NEDRA is bottle feeding and states that she has bottles and formula for home. Educational Status:? NEDRA completed school through the 11th grade, she dropped out of her 12th grade and did not graduate. FAIZA attended some college, but does not have a degree. No concerns with reading, learning or comprehension. Financial Status:FAIZA is employed outside of the home as a diesel fleet mechanic. Maternal grandma also works outside of the home. NEDRA is unemployed. Infant Supplies:?? Parents have obtained all necessary baby supplies, including: car seat, safe sleep space, clothes, diapers and wipes. Childcare/Caregiver(s):? NEDRA will be the primary caregiver to baby along with FAIZA when he is not at work. NEDRA also has the help of maternal grandma and her younger sister. Transportation:??FAIZA has his drivers license and reliable means of transportation. NEDRA does not drive and depends on family members to help her get to scheduled appointments. Programs/Agencies Involved: NEDRA is receiving [employer] insurance and has WIC. ??? Children Services/Legal Issues:??? NEDRA was referred to [facility] in 2021 following the of her son. A referral was made at that time due to maternal use of marijuana during . Sw informed NEDRA that sw will be making a referral to Children Services on this date due to maternal use of marijuana during . NEDRA expressed understanding. - Sw called [facility] and spoke to hotline screener: Ewa. Behavioral Health Issues: ??Mental Health History:??Initially FAIZA denied history of mental health diagnoses, and then stated that he does experience anxiety. FOB states that he has social anxiety he just avoids certain situations that make him feel anxious. FAIZA denies medications and mental health supports. NEDRA states that she has been diagnosed with anxiety and depression, was prescribed zoloft by her OBGYN office to help manage mental health symptoms. NEDRA states that she did experience some depression following the of her first son. MOB states that when everyone in the family was working she felt lonely. NEDRA states that she also had anxiety and that is when she was prescribed zoloft. MOB states that her anxiety was around the concern that something may happen to her or the baby during her delivery. MOB states that now that baby has been born she feels so much better and no more anxiety. MOB states that she plans on restarting her zoloft now that baby has been born. NEDRA completed [place] Depression Scale and her score was a 7. Sw provided education and support. ? Substance Use History: NEDRA admits to using THC daily during . ?FOB states that he also smokes marijuana occasionally. ? Family History:?NEDRA reports that her father is an addict. He is addicted to opiods. MOB states that he is involved in her life, but is incarcerated at this time. MOB states that he will not be identified as a caregiver to baby. ? Drug Screens: ??MOB and baby urine screen was positive for THC. Meconium still pending. Family/Social Stressors:? Parents deny any issues or concerns at this time. Support Systems: NEDRA has a lot of natural built in supports with her mother, FOB and her sister. Depression/Shaken Baby/Safe Sleeping:? Sw educated parents on signs and symptoms of baby blues and depression and anxiety. Parents express understanding. Sw educated parents on shaken baby prevention and ABCs of safe sleep. Parents express understanding. ASSESSMENT:? MOB and baby admitted following labor and delivery of . Parents were engaged and open during psychosocial assessment. NEDRA was talkative about her mental health history. Parents are not connected to counseling supports, but were open to receiving information on mental health resources that are available to them. Parents have obtained all necessary baby supplies and have adequate natural supports. NEDRA was informed of referral being made to Children Services due to maternal use of marijuana during . Safe Plan of Care for related to substance use:?MOB states that she does plan on continuing to use marijuana. MOB states that she will not smoke around baby/ 18 month old son, and will ensure that they are in the care of a family member. PLAN:? MOB and baby to be discharged when medically ready. Should Children Services screen in referral they will follow up with family at home once discharged. ?No other services requested or indicated. Aiyana Murillo, TIPPLE REPAIRER, ALL ROUND LOGGER
[2023-12-04 13:00] VITALS: BP 122/84; PULSE 66; RESP 16; TEMP 36.8; O2SAT 100
[2023-12-04] MEDS: Ibuprofen 600 MG Tablet PO ×2 (14:06→20:02)
[2023-12-04 17:00] VITALS: BP 111/75; PULSE 66; RESP 16; TEMP 36.5; O2SAT 100
[2023-12-04] MEDS: oxyCODONE 5 MG Tablet PO (17:48)
[2023-12-04 20:05] VITALS: BP 124/90; PULSE 72; RESP 16; TEMP 36.7; O2SAT 98
[2023-12-05] MEDS: Ibuprofen 600 MG Tablet PO ×2 (02:07→09:02)
[2023-12-05 02:09] VITALS: BP 126/72; PULSE 70; RESP 16; TEMP 36.7; O2SAT 98
[2023-12-05] MEDS: Acetaminophen 500 MG Tablet 1000 MG PO (04:29)
--- NOTE | 2023-12-05 08:09 | PCM.DC.SUM ---
Providers Date of Admission: 12/03/23 Primary Care Physician: BELINDA Valles Reason For Visit: REPEAT Diagnosis Discharge Diagnosis (1) Delivery by section: Status: Acute (2) History of depression: Status: Acute Code(s): Z86.59 - Personal history of other mental and behavioral disorders (3) Obesity affecting : Status: Acute Code(s): O99.210 - Obesity complicating , unspecified trimester (4) Post-op pain: Status: Acute Code(s): G89.18 - Other acute postprocedural pain Plan POD#2 , Doing well Routine care pain mgmt monitor VS ambulation dc home Medications at Discharge Home Medications albuterol sulfate 90 mcg/actuation aerosol inhaler 2 inh inhalation Q4H PRN shortness of breath or wheezing 09/15/23 acetaminophen 500 mg tablet 1,000 mg (2 x 500 mg) PO Q6H #0 tabs 12/05/23 ibuprofen 600 mg tablet 600 mg PO Q6H #0 tabs 12/05/23 oxycodone 5 mg tablet 5 - 10 mg (1 - 2 x 5 mg) PO Q4H PRN PRN Pain Score 4-10 3 days #10 tabs 12/05/23 sennosides 8.6 mg-docusate sodium 50 mg tablet (Stool Softener-Stimulant Laxative) 1 - 2 tab PO DAILY #0 tabs 12/05/23 simethicone 80 mg chewable tablet 80 mg PO PCHS PRN Indigestion/stomach pain #0 tabs 12/05/23 Hospital Course Operations section Summary of Care Provided Minutes Spent on Discharge: 15 Hospital Course: Admitted for scheduled repeat cs on 12/03, underwent LTCS and was discharged home in stable condition on POD#2. Physical Exam Narrative Fundus firm. Dressing dry and intact. Const alert and oriented x3 General Appearance: cooperative HEENT normocephalic Neck General: normal visual inspection GI soft to palpation and non-distended GI Narrative: Fundus firm Extremity normal to inspection and no calf tenderness Skin no rashes or lesions noted Neuro oriented x3 and CN's II-XII intact bilaterally Psych mental status grossly normal Weight / BMI Weight Weight: 104.598 kg Body Mass Index (BMI) 37.2 ABG / Lab / Microbiology Data 12/04/23 08:40 Laboratory: Laboratory Results - last 24 hr 02/16/24 08:40: WBC 10.6, RBC 4.02 L, Hgb 9.1 L, Hct 30.0 L, MCV 74.6 L, MCH 22.6 L, MCHC 30.3 L, RDW Std Deviation 41.1, RDW Coeff of Pratima 15.3 H, Plt Count 171, MPV 12.0 D/C Instructions Discharge Diet: No restrictions May resume sexual activity in: 6-8 weeks Lifting Restrictions: 25 Call your doctor if your incision/area has: Continuous Slow Oozing, Sudden Increased Bleeding, Increased Pain/ Swelling, Increased Redness, Foul Smelling Discharge and Swelling at the incision site Call your doctor if you observe: Fever of 101 or Higher, Inability to urinate, Using more than 1 pad per hour and Uncontrolled pain Additional Dressing/Incision Instructions: remove dressing at 7 days post op- if it becomes saturated prior to that time you may remove it. Let soap and water run over incision sites and dab dry. keep incision clean and dry. Please Follow Up With: Mariela Del Valle MD When: 1-2 weeks post of incision check and again at 6 weeks post . [phone] Meaningful Use Info Meaningful Use Diagnoses (Choose all that apply): None applicable Discharge Plan Admission Admit Date/Time: 12/03/23 09:16 Attending Provider: Abena Peterson Primary Care Provider: Dara Rodriguez NP Discharge Orders/Prescriptions Prescriptions: New acetaminophen 500 mg Tablet 1,000 mg PO Q6H Qty: 0 0RF ibuprofen 600 mg Tablet 600 mg PO Q6H Qty: 0 0RF oxycodone 5 mg Tablet 5 - 10 mg PO Q4H PRN PRN (Reason: Pain Score 4-10) 3 Days Qty: 10 0RF sennosides-docusate sodium [Stool Softener-Stimulant Laxat] 8.6-50 mg Tablet 1 - 2 tab PO DAILY Qty: 0 0RF simethicone 80 mg Tablet,Chewable 80 mg PO PCHS PRN (Reason: Indigestion/stomach pain) Qty: 0 0RF Continued albuterol sulfate 90 mcg/actuation HFA aerosol inhaler 2 inh INHALATION Q4H PRN (Reason: shortness of breath or wheezing) Patient Comments: inhale 2 puffs by mouth and INTO THE LUNGS every 4 hours if neede... (REFER TO PRESCRIPTION NOTES). Referrals / Follow Up: Dara Rodrgiuez FLIGHT OPERATIONS SPECIALIST, FLIGHT OPERATIONS SPECIALIST-C [Primary Care Provider] - Disposition Disposition (needs filled in before D/C Order can be placed): Home, Self Care
[2023-12-05 09:00] VITALS: BP 123/69; PULSE 94; RESP 18; TEMP 36.6; O2SAT 99
[2023-12-05] MEDS: Senna/Docusate Sodium 1 Tablet PO (09:02)
--- NOTE | 2023-12-05 10:55 | CASEMGMT ---
Social Work SW did let the [facility] Children[facility] Services worker know that the MOB's room smelled of marijuana today. ZUNILDA Marie
== END 2023-12-05 10:35 | disposition home or self-care (01) | DRG 540 ==
PROVIDERS: Admitting Provider Obstetrics & Gynecology; PCP Internal Medicine; Visit Provider Obstetrics & Gynecology
PROC: 10D00Z1 Extraction of Products of Conception, Low, Open Approach (ICD-10-PCS; CPT 59514; principal; 2023-12-03 11:45)
DX: O34.211 Maternal care for low transverse scar from previous cesarean delivery (principal); F17.210 Nicotine dependence, cigarettes, uncomplicated; O99.334 Smoking (tobacco) complicating childbirth; Z37.0 Single live birth; G89.18 Other acute postprocedural pain; Z3A.39 39 weeks gestation of pregnancy; Z86.59 Personal history of other mental and behavioral disorders
CPT/HCPCS: 59025; 59050; 80307; 85025; 85027; 86780; 86850; 86900; 86901; 99221; J7120; A4216; G0378; J2405